=== PATIENT | female | born 1965 | race Caucasian/White ===

== ENCOUNTER 2019-10-23 13:36 | Outpatient (CLI) | payer OTHER, SELFPAY ==
--- NOTE | ~2019-10-23 | US_ITS ---
EXAMINATION: US pelvic complete w TV DATE: 10/23/2019 14:37 INDICATION: Left adnexal pain. Postmenopausal. Comparison:11/28/2015 TECHNIQUE: Multiple transabdominal and endovaginal sonographic images of the pelvis performed. FINDINGS: The uterus measures 7.8 x 3.8 x 6.5 cm. There is a heterogeneous mass at the fundus of the uterus measuring 4.6 x 3.3 x 3 cm, compatible with fibroid. The endometrial complex measures 6 mm. The ovaries are not visualized. There is no free fluid in the pelvis. There are no abnormal masses seen on either side. IMPRESSION: 1. 4.6 cm uterine fibroid at the uterine fundus. 2: Thickened endomtrial complex. The differential diagnosis includes endometrial hyperplasia, polyp a nd carcinoma. Biopsy is recommended. Reviewed, dictated and finalized at location A. IMPRESSION: 1. 4.6 cm uterine fibroid at the uterine fundus. 2: Thickened endomtrial complex. The differential diagnosis includes endometria l hyperplasia, polyp and carcinoma. Biopsy is recommended.
== END 2019-10-23 13:37 | disposition home or self-care (01) ==
PROVIDERS: PCP Family Medicine; Visit Provider Nurse Practitioner
DX: R10.2 Pelvic and perineal pain (principal); D25.9 Leiomyoma of uterus, unspecified; R93.89 Abnormal findings on diagnostic imaging of other specified body structures
CPT/HCPCS: 76830; 76856

== ENCOUNTER → 2020-01-06 10:25 | Outpatient (CLI) | payer OTHER, SELFPAY ==
--- NOTE | ~2020-01-06 | MM_ITS ---
EXAMINATION: MM screening [facility] BI w martha HISTORY: Screening mammogram TECHNIQUE: Craniocaudal and mediolateral oblique 3-D tomosynthesis images were obtained and synthetic 2-D images were generated. CAD analysis was submitted and interpreted. COMPARISON: Comparison to multiple prior studies sequentially, with oldest reviewed study dated 01/2015. BREAST PARENCHYMAL COMPOSITION: There are scattered areas of fibroglandular density. FINDINGS: There is no evidence of suspicious mass, calcification, or architectural distortion to sugg est malignancy in either breast. There has been no suspicious interval change. IMPRESSION: 1. No mammographic evidence of malignancy. 2. Recommend routine screening mammography in one year. BI-RADS Category 1: Negative Reviewed, dictated and finalized at location A.
== END ==
PROVIDERS: Visit Provider Nurse Practitioner
DX: Z12.31 Encounter for screening mammogram for malignant neoplasm of breast (principal)
CPT/HCPCS: 77063; 77067

== ENCOUNTER 2020-02-17 10:47 | Outpatient (CLI) | payer OTHER, SELFPAY ==
--- NOTE | ~2020-02-17 | US_ITS ---
EXAMINATION: US pelvic complete w TV DATE: 02/17/2020 11:51 INDICATION: Endometrial thickening TECHNIQUE: Multiple transabdominal and endovaginal sonographic images of the pelvis were obtained. COMPARISON: 10/23/2019 FINDINGS: The uterus measures 6.0 x 3.5 x 6.0 cm. A 1.2 x 0.7 cm hypoechoic area near the uterine fun dus is stable, possibly reflecting a submucosal fibroid. The endometrial complex measures 5 mm. The r ight ovary measures 1.7 x 1.0 x 1.4 cm. The left ovary measures 1.1 x 2.0 x 1.0 cm. There is normal v ascular flow in the ovaries. There is no free fluid in the pelvis. IMPRESSION: 1. Normal endometrial thickness. Reviewed, dictated and finalized at location A.
== END 2020-02-17 10:48 | disposition home or self-care (01) ==
PROVIDERS: PCP Family Medicine; Visit Provider Nurse Practitioner
DX: R93.5 Abnormal findings on diagnostic imaging of other abdominal regions, including retroperitoneum (principal)
CPT/HCPCS: 76830; 76856

== ENCOUNTER 2020-03-12 11:12 | Emergency (ER) | payer OTHER, SELFPAY ==
[2020-03-12 11:28] VITALS: BP 117/69; PULSE 80; RESP 20; TEMP 36.8; O2SAT 97
--- NOTE | 2020-03-12 12:07 | ED.URI ---
HPI - URI/Sore Throat General Chief Complaint: Upper Respiratory Infection Stated Complaint: sore throat Source: patient Mode of arrival: ambulatory Limitations: no limitations History of Present Illness HPI Narrative: 54-year-old female presents to [facility] care with complaints of sore throat and body aches since yesterday. Patient reports history of strep throat reports that her symptoms are similar. Patient denies cough, shortness of breath, wheezing, fever, nausea, vomiting or diarrhea. Patient denies sick contacts. Patient denies recent travel. MD elicited complaint: sore throat Onset (ago): day(s) (1) Consistency: constant Severity: mild Pain scale (0-10): 6 Able to tolerate fluids by mouth: Yes Related Data Home Medications Medication Instructions Recorded Confirmed ergocalciferol (vitamin D2) 1,250 mcg PO WEEKLY 03/12/20 03/12/20 [Vitamin D2] escitalopram oxalate 5 mg PO DAILY 03/12/20 03/12/20 levothyroxine 88 mcg PO DAILY 03/12/20 03/12/20 multivitamin 1 cap PO DAILY 03/12/20 03/12/20 Allergies Allergy/AdvReac Type Severity Reaction Status Date / Time Penicillins Allergy Unknown Unknown Verified 03/12/20 11:39 Review of Systems Review of Systems: All systems reviewed & are unremarkable except as noted in HPI and below Constitutional: Constitutional: Reports chills, Denies fever(s) and Denies weakness ENT: Denies dysphagia, Denies vertigo, Denies dizziness, Denies nasal congestion and Reports sore throat Cardiovascular: Cardiovascular: Denies chest pain, Denies radiating jaw, neck or arm pain and Denies slow heart rate Respiratory: Respiratory: Denies cough, Denies dyspnea and Denies wheezing Gastrointestinal: Gastrointestinal: Denies abdominal pain, Denies constipation, Denies diarrhea, Denies nausea and Denies vomiting Integumentary/Breasts: Skin/Breast: Denies rash Neurologic: Denies dizziness, Denies headache(s) and Denies weakness PMFSH Past Medical History Medical History (Updated 03/12/20 @ 12:13 by Brenda Huff APRN) Anxiety Depression Hypothyroid Surgical History Surgical History (Updated 03/12/20 @ 12:10 by Brenda Huff APRN) Gastric bypass status for obesity Gastric bypass status for obesity Family History Family History Father Patient's father is in good health Sibling Patient's sister is in good health Patient's brother is in good health Social History Social History Smoking status: Never smoker Alcohol intake: current Exam Const: General: healthy appearing, no acute distress and alert Orientation/consciousness: patient oriented x3 HENMT: Head: normal to inspection Ears: external ears normal and TM's normal bilaterally General nose exam: Normal external nose present Mouth: Yes moist mucous membranes Throat: uvula midline Other: 1+ edema and moderate erythema noted to bilateral tonsils. There is no exudate or peritonsillar abscess noted Neck: Neck: normal visual inspection Resp: Effort & Inspection: normal respiratory effort, not labored and not tachypneic Auscultation: clear to auscultation bilaterally Cardio: Rate: regular rate, not bradycardic and not tachycardic Rhythm: regular rhythm Skin: General skin exam: normal color Rashes: no rashes Wounds: no wounds Neuro: General: patient oriented x3 and moves all extremities Extrem: General: normal to inspection Psych: Mental Status: mental status grossly normal Affect: normal affect Attitude: cooperative Thought content: Yes Normal thought content present Course Vital Signs Vital signs: Vital Signs Temperature 36.8 C 03/12/20 11:28 Pulse Rate 80 03/12/20 11:28 Respiratory Rate 20 03/12/20 11:28 Blood Pressure 117/69 03/12/20 11:28 Pulse Oximetry 97 03/12/20 11:28 Temperature 36.8 C 03/12/20 11:28 Pulse Rate 80 03/12/20 11:28 Respiratory R
== END 2020-03-12 12:22 | disposition home or self-care (01) ==
PROVIDERS: Emergency Provider Nurse Practitioner Family; PCP Family Medicine
DX: J02.9 Acute pharyngitis, unspecified (principal); E03.9 Hypothyroidism, unspecified; F41.9 Anxiety disorder, unspecified; F32.9 Major depressive disorder, single episode, unspecified
CPT/HCPCS: 87081; 87880; 99213; G0463

== ENCOUNTER 2021-09-08 10:05 | Emergency (ER) | payer OTHER, SELFPAY ==
[2021-09-08 10:26] VITALS: BP 109/58; PULSE 77; RESP 18; TEMP 36.5; O2SAT 98
--- NOTE | 2021-09-08 10:32 | ED.URI ---
HPI - URI/Sore Throat General Chief Complaint: Upper Respiratory Infection Stated Complaint: nasal congestion,bilateral ear pain,sorethroat Time Seen by Provider: 09/08/21 10:36 Source: patient, RN notes reviewed and old records reviewed Mode of arrival: ambulatory Limitations: no limitations History of Present Illness HPI Narrative: 55-year-old female who presents to [facility] Care with complaints of 2-week duration of sore throat, sinus congestion and drainage and now bilateral ear pain. Patient denies any acute cough has noted occasional dry cough with no shortness of breath or any tachypnea. Patient reports that she is taking an OTC allergy medication and did take a night time sinus congestion medication last night. Reports no known fevers but states she is hot and cold. MD elicited complaint: sore throat, nasal congestion and other (ear pain) Onset (ago): week(s) (2) Exacerbating factors: swallowing Treatments prior to arrival: cold medicine and other (sinus medication) Related Data Home Medications Medication Instructions Recorded Confirmed escitalopram oxalate 5 mg PO DAILY 03/12/20 09/08/21 levothyroxine 88 mcg PO DAILY 03/12/20 09/08/21 Allergies Allergy/AdvReac Type Severity Reaction Status Date / Time Penicillins Allergy Unknown Hives Verified 09/08/21 10:36 Review of Systems Review of Systems: CONSTITUTIONAL: Denies fever,positive for chills, or sweats. EYES: Denies visual changes, redness, or discharge. ENT: Positive for rhinorrhea, congestion, sore throat,bilateral otalgia, some facial pressure CARDIOVASCULAR: no chest pain, palpitations, or edema. RESPIRATORY:No acute cough occasional dry cough denies dyspnea. GASTROINTESTINAL: Denies abdominal pain, nausea, vomiting, or diarrhea. GENITOURINARY: Denies dysuria or hematuria. SKIN: Denies rash or itching. MUSCULOSKELETAL: Denies back pain, joint pain, or myalgia. NEUROLOGIC: Denies headache, numbness, or weakness. PSYCHIATRIC:Positive history of anxiety or depression. All systems reviewed & are unremarkable except as noted in HPI and below PMFSH Past Medical History Medical History Anxiety Depression Hypothyroid Surgical History Surgical History Gastric bypass status for obesity Gastric bypass status for obesity Family History Family History Father Patient's father is in good health Sibling Patient's sister is in good health Patient's brother is in good health Social History Social History Smoking status: Never smoker Alcohol intake: current Comments At time of signature, agree with nursing past medical, surgical, social and family history. There is no relevant family history pertinent to the presenting complaint Exam Narrative: GENERAL: Well-appearing, well-nourished, and in no acute distress. HEAD: Normocephalic, atraumatic. EYES: PERRLA and EOMI. ENT: Nares red with clear rhinorrhea no epistaxis. Mucous membranes moist.TM's normal but will dull light reflex, throat red with no lesions or exudates, some redness of tonsils, post nasal drainage present. NECK: Supple.no lymphadenopathy CHEST: Clear to auscultation. No respiratory distress.no tachypnea or shortness of breath SAO2 98% on room air. HEART: Regular rate and rhythm. No murmur heard. Normal peripheral pulses. ABDOMEN: Soft, nontender, nondistended, normal active bowel sounds. EXTREMITIES: Normal range of motion. No edema. SKIN: Warm, dry, no rash. NEURO: No focal deficits. Alert and oriented x3. Course Course Level of Care: Express Care Visit Vital Signs Vital signs: Vital Signs Temperature 36.5 C 09/08/21 10:26 Pulse Rate 77 09/08/21 10:26 Respiratory Rate 18 09/08/21 10:26 Blood Pressure 109/58 L 09/08/21 10:26 Pulse Oximetry 98 09/08/21
== END 2021-09-08 10:55 | disposition home or self-care (01) ==
PROVIDERS: Emergency Provider Registered Nurse
DX: J01.40 Acute pansinusitis, unspecified (principal); E03.9 Hypothyroidism, unspecified; F41.9 Anxiety disorder, unspecified; F32.A Depression, unspecified; Z98.84 Bariatric surgery status
CPT/HCPCS: 87081; 87880; 99213; G0463

== ENCOUNTER → 2022-03-12 08:57 | Outpatient (CLI) | payer OTHER, SELFPAY ==
--- NOTE | ~2022-03-12 | MM_ITS ---
EXAMINATION: MM screening [facility] BI w martha HISTORY: Screening mammogram TECHNIQUE: Craniocaudal and mediolateral oblique 3-D tomosynthesis images were obtained and synthetic 2-D images were generated. CAD analysis was submitted and interpreted. COMPARISON: 01/06/2020, 04/07/2018, 11/28/2015 bilateral screening mammogram examinations BREAST PARENCHYMAL COMPOSITION: The breasts are almost entirely fatty. FINDINGS: There is no evidence of suspicious mass, calcification, or architectural distortion to sugg est malignancy in either breast. There has been no suspicious interval change. IMPRESSION: 1. No mammographic evidence of malignancy. 2. Recommend routine screening mammography in one year. BI-RADS Category 1: Negative Reviewed, dictated and finalized at location A.
--- NOTE | ~2022-03-12 | DEXA_ITS ---
Bone Density Report Name: STEFANIE SKINNER Age: 56 Sex: Female Ethnicity: White Date of : 1965 Indication: postmenopausal; screening for osteoporosis; parental hip fracture; Referring Provider: Caryn, Jigna Study: Bone densitometry was performed. Exam Date: March 12, 2022 Accession number: [id number] Bone Density: Region BMD T-score Z-score Classification AP Spine (L1-L4) 0.852 -1.8 -0.7 Osteopenia Femoral Neck (Left) 0.690 -1.4 -0.4 Osteopenia Total Hip (Left) 0.858 -0.7 0.0 Normal Femoral Neck (Right) 0.679 -1.5 -0.5 Osteopenia Total Hip (Right) 0.894 -0.4 0.2 Normal Total Hip Mean 0.876 -0.6 0.1 Normal World Health Organization criteria for BMD impression classify patients as: Normal (T-score at or above -1.0), Osteopenia (T-score between -1.0 and -2.5), or Osteoporosis (T-score at or below -2.5). 10-year Fracture Risk(1): Major Osteoporotic Fracture 12% Hip Fracture 0.5% Reported Risk Factors: [place] (), Neck BMD=0.679, BMI=31.5, parental fracture (1) FRAX(R) Version 3.08. Fracture probability calculated for an untreated patient. Fracture probability may be lower if the patient has received treatment. Clinical Information Provided by Patient: Parent has had a hip fracture Patient maximum height was 66 Menopause Age: 50 No regular weight bearing exercise Does not regularly consume dairy products Drinks caffeinated beverages Onset of menses at age 14 Number of children 1 Impression: The patient has low bone mass, based on the Total Spine T-score. The patient has an estimated ten-year risk of hip fracture of 0.5% and an estimated ten-year risk of major fracture of 12%, based on the WHO FRAX algorithm. The patient has risk factors, including: parental hip fracture. Discussion: BONE DENSITY IS LOW AT ONE OR MORE SKELETAL SITES. This patient's lowest T-score is low at one or more skeletal sites. It meets the World Health Organization's (WHO) criteria for ?low bone mass? (T-score between -1.0 and -2.5). The patient's 10-year risk of fracture as calculated by FRAX is less than the threshold where pharmacological therapy is recommended by the National Osteoporosis Foundation (NOF). However, all treatment decisions require clinical judgment and consideration of individual patient factors, including patient preferences, comorbidities, previous drug use, risk factors not captured in the FRAX model (e.g., frailty, falls, vitamin D deficiency, increased bone turnover, interval significant decline in bone density) and possible under or overestimation of fracture risk by FRAX. The patient should follow a healthful lifestyle (good nutrition with adequate calcium and vitamin D, and appropriate weight-bearing exercise). Follow-Up: Consider repeating this study in 2 to 3 ye
== END ==
PROVIDERS: PCP Family Medicine; Visit Provider Nurse Practitioner
DX: Z78.0 Asymptomatic menopausal state (principal); M85.88 Other specified disorders of bone density and structure, other site; M85.852 Other specified disorders of bone density and structure, left thigh; M85.851 Other specified disorders of bone density and structure, right thigh
CPT/HCPCS: 77063; 77067; 77080

== ENCOUNTER 2022-04-16 11:57 | Emergency (ER) | payer OTHER, SELFPAY ==
[2022-04-16 12:10] VITALS: BP 129/68; PULSE 88; RESP 18; TEMP 36.6; O2SAT 100
--- NOTE | 2022-04-16 12:32 | ED.GENADULT ---
HPI - General Adult General Chief complaint: Ear Stated complaint: bilateral ear pain History of Present Illness HPI narrative: Patient is a 56-year-old female who presents to the [facility] Care via POV for evaluation of bilateral ear pain for 1 week. R is much worse than left. She reports pain in right ear is 8/10 and left ear is 4/10.Unable to describe quality of pain. No relief with hydrocodone. Ibuprofen provides moderate relief. Hx of ear infections and today's pain is identical to previous ear infections. Of note, she had a gum graft procedure on Tuesday, April 12, 2022. Related Data Home Medications Medication Instructions Recorded Confirmed ergocalciferol (vitamin D2) 1,250 1,250 mcg WEEKLY 04/16/22 04/16/22 mcg (50,000 unit) capsule escitalopram oxalate 20 mg tablet 20 mg DAILY 04/16/22 04/16/22 levothyroxine 75 mcg tablet 75 mcg DAILY 04/16/22 04/16/22 Allergies Allergy/AdvReac Type Severity Reaction Status Date / Time Penicillins Allergy Unknown Hives Verified 04/16/22 12:15 NSAIDS (Non-Steroidal Allergy Other Verified 04/16/22 12:15 Anti-Inflamma Review of Systems Review of Systems: Pertinent negatives fever, chills, sweats, change in appetite, poor p.o. intake, malaise, headache, rhinorrhea, sinus problems, tinnitus, vertigo, lightheadedness, hearing loss, muffled hearing, ear drainage, nausea, vomiting, sore throat, cough, shortness of breath, lymphadenopathy, chest pain, heart palpitations, and heart murmur. [facility] Past Medical History Medical History Anxiety Depression Hypothyroid Surgical History Surgical History Gastric bypass status for obesity Gastric bypass status for obesity Family History Family History Father Patient's father is in good health Sibling Patient's sister is in good health Patient's brother is in good health Social History Social History Smoking status: Never smoker Alcohol intake: current Exam Narrative: GENERAL: Well-appearing, well-nourished, and in no acute distress. Appears in moderate pain. Guarding right ear. HEAD: Normocephalic, atraumatic. No sinus tenderness or facial swelling appreciated. EYES: PERRLA and EOMI. No evidence of erythema, swelling, or drainage. ENT: Bilateral external ears. Right ear canal with moderate erythema. Pain elicited to right ear while palpating tragus and pulling up on pinna. Left ear canal normal. Bilateral TMs are normal.No TM perforation. Nares clear, no rhinorrhea or epistaxis. Bilateral turbinates without erythema/ swelling. Mucous membranes moist and pink. Uvula is midline without erythema and swelling. Posterior pharynx is normal. Breath odor and voice normal. NECK: Supple. No Lymphadenopathy or nuchal rigidity appreciated. CHEST: Bilateral lung simon are clear to auscultation. No respiratory distress. No evidence of cough or pleuritic cp upon examination. HEART: Regular rate and rhythm. No murmur, gallop, or rub heard. EXTREMITIES: Normal range of motion. No edema. SKIN: Warm, dry, no rash. NEURO: No focal deficits. Alert and oriented x3. Course Course Level of Care: Express Care Visit Vital Signs Vital signs: Vital Signs Temperature 97.9 F 04/16/22 12:10 Pulse Rate 88 04/16/22 12:10 Respiratory Rate 18 04/16/22 12:10 Blood Pressure 129/68 04/16/22 12:10 Pulse Oximetry 100 04/16/22 12:10 Oxygen Delivery Room Air 04/16/22 12:10 Temperature 97.9 F 04/16/22 12:10 Pulse Rate 88 04/16/22 12:10 Respiratory Rate 18 04/16/22 12:10 Blood Pressure 129/68 04/16/22 12:10 Pulse Oximetry 100 04/16/22 12:10 Oxygen Delivery Room Air 04/16/22 12:10 Reviewed. Medical Decision Making Differential Diagnosis Differential
[2022-04-16] MEDS: KETOROLAC (*BKC) 60 MG/2 ML VIAL IM (12:44)
== END 2022-04-16 13:08 | disposition home or self-care (01) ==
PROVIDERS: Emergency Provider Nurse Practitioner Family; PCP Family Medicine
DX: H60.501 Unspecified acute noninfective otitis externa, right ear (principal); F41.9 Anxiety disorder, unspecified; F32.A Depression, unspecified; E03.9 Hypothyroidism, unspecified
CPT/HCPCS: 96372; 99213; G0463; J1885

== ENCOUNTER → 2022-09-21 12:40 | Outpatient (CLI) | payer OTHER, SELFPAY ==
--- NOTE | ~2022-09-21 | XR_ITS ---
EXAM: XR toe 1st RT min 2V DATE: 09/21/2022 13:06 HISTORY: unspecified injury of right foot, initial encounter . COMPARISON: None available. FINDINGS: Normal mineralization. Mildly displaced oblique intra-articular fracture of the medial and proximal aspect of the right distal phalanx. No lytic or blastic lesion. Moderate hallux valgus and degenerative change at the first MTP joint. No erosion or periosteal change. Soft tissues within norm al limits. IMPRESSION: Mildly displaced oblique intra-articular fracture of the medial and proximal aspect of th e right distal phalanx. Reviewed, dictated and finalized at location K. IMPRESSION: Mildly displaced oblique intra-articular fracture of the medial and proximal aspect of the right distal phalanx.
== END ==
PROVIDERS: PCP Family Medicine; Visit Provider Family Medicine
DX: S99.921A Unspecified injury of right foot, initial encounter (principal); X58.XXXA Exposure to other specified factors, initial encounter
CPT/HCPCS: 73660

== ENCOUNTER → 2023-04-05 08:16 | Outpatient (CLI) | payer OTHER, SELFPAY ==
--- NOTE | ~2023-04-05 | US_ITS ---
Pelvic ultrasound. Clinical History: Pelvic swelling COMPARISON: 02/17/2020 Technique: Realtime transabdominal and transvaginal scanning of the pelvis was performed. Color flow Doppler and Doppler spectral analysis were performed. Findings: The uterus is anteverted. The endometrial stripe has a thickness of 5 mm. Ill-defined intr amural/partially submucosal fibroid measures 1.4 cm in diameter. Left-sided fibroid towards the fundu s measures 4.0 cm in diameter. Neither ovary seen. No other adnexal mass seen. There is no evidence of free fluid in the cul de sac. Impression: Uterine fibroids, as detailed above. Reviewed, dictated and finalized at location . Impression: Uterine fibroids, as detailed above.
== END ==
PROVIDERS: PCP Obstetrics & Gynecology Gynecology; Visit Provider Advanced Practice Midwife
DX: R19.09 Other intra-abdominal and pelvic swelling, mass and lump (principal); D25.9 Leiomyoma of uterus, unspecified
CPT/HCPCS: 76830

== ENCOUNTER → 2023-04-05 08:45 | Outpatient (CLI) | payer OTHER, SELFPAY ==
--- NOTE | ~2023-04-05 | MM_ITS ---
EXAMINATION: MM screening [facility] BI w martha HISTORY: Screening TECHNIQUE: Craniocaudal and mediolateral oblique 3-D tomosynthesis images were obtained and synthetic 2-D images were generated. CAD analysis was submitted and interpreted. COMPARISON: Comparison to multiple prior studies sequentially, with oldest reviewed study dated 11/04. BREAST PARENCHYMAL COMPOSITION: Breast composed of scattered areas of fibroglandular density FINDINGS: There is no evidence of suspicious mass, calcification, or architectural distortion to sugg est malignancy in either breast. There has been no suspicious interval change. IMPRESSION: 1. No mammographic evidence of malignancy. 2. Recommend routine screening mammography in one year. BI-RADS Category 1: Negative Reviewed, dictated and finalized at location A.
== END ==
PROVIDERS: PCP Nurse Practitioner; Visit Provider Nurse Practitioner
DX: Z12.31 Encounter for screening mammogram for malignant neoplasm of breast (principal)
CPT/HCPCS: 77063; 77067

== ENCOUNTER 2023-06-10 15:05 | Emergency (ER) | payer OTHER, SELFPAY ==
[2023-06-10 15:35] VITALS: BP 115/69; PULSE 74; RESP 18; TEMP 36.7; O2SAT 99
--- NOTE | 2023-06-10 15:42 | ED.URI ---
HPI - URI/Sore Throat General Chief Complaint: Upper Respiratory Infection Stated Complaint: congestion,sorethroat,cough Time Seen by Provider: 06/10/23 15:40 Source: patient Mode of arrival: ambulatory Limitations: no limitations History of Present Illness HPI Narrative: Jessica is a 57-year-old female patient presenting to the clinic today with complaints of congestion, sore throat, and cough x5 days. She denies any fever or chills. Has been tested positive for COVID yesterday. MD elicited complaint: sore throat and nasal congestion Related Data Home Medications Medication Instructions Recorded Confirmed ergocalciferol (vitamin D2) 1,250 1,250 mcg WEEKLY 04/16/22 04/16/22 mcg (50,000 unit) capsule escitalopram oxalate 20 mg tablet 20 mg DAILY 04/16/22 04/16/22 levothyroxine 75 mcg tablet 75 mcg DAILY 04/16/22 04/16/22 Allergies Allergy/AdvReac Type Severity Reaction Status Date / Time Penicillins Allergy Unknown Hives Verified 04/16/22 12:15 NSAIDS (Non-Steroidal Allergy Other Verified 04/16/22 12:15 Anti-Inflamma Review of Systems Review of Systems: Pertinent positives per HPI. Patient denies any fever, chills, rash, headache, visual changes, dizziness, shortness of breath, chest pain, palpitations, nausea, vomiting, diarrhea, constipation, abdominal pain, or any urinary issues. COUNT INCLUDES THE [facility] Past Medical History Medical History Anxiety Depression Hypothyroid Surgical History Surgical History Gastric bypass status for obesity Gastric bypass status for obesity Family History Family History Father Patient's father is in good health Sibling Patient's sister is in good health Patient's brother is in good health Social History Social History Smoking status: Never smoker Alcohol intake: current Comments At the time of my signature, I reviewed and agree with the nursing past medical, surgical, social, and family history. There is no relevant family history pertinent to the patient complaint. Exam Narrative: General: Well-developed, well nourished, in no apparent distress Head: Normocephalic, atraumatic Eyes: Pupils equally round and reactive to light bilaterally, EOM intact, sclera and conjunctive clear, no discharge, lids normal Ears: TMs intact and clear, ear canals clear, no drainage, grossly hearing normal. Nose: Nares patent, clear nasal discharge, no inflammation, no sinus tenderness. Mouth: Oral pharynx without lesions or masses, good dentition, MMM. Neck: Supple, trachea midline, no enlargement of anterior or posterior cervical nodes, no thyroid masses or goiter palpable. Cardio: Regular rate and rhythm, s1 and s2 normal, no murmur appreciated. Resp: Clear to auscultation bilaterally, no rhonchi, rales, wheezing or rubs Course Course Emergency Course: Portions of this record may have been created with voice recognition software. Level of Care: Express Care Visit Vital Signs Vital signs: Vital Signs Temperature 36.7 C 06/10/23 15:35 Pulse Rate 74 06/10/23 15:35 Respiratory Rate 18 06/10/23 15:35 Blood Pressure 115/69 06/10/23 15:35 Pulse Oximetry 99 06/10/23 15:35 Oxygen Delivery Room Air 06/10/23 15:35 Temperature 36.7 C 06/10/23 15:35 Pulse Rate 74 06/10/23 15:35 Respiratory Rate 18 06/10/23 15:35 Blood Pressure 115/69 06/10/23 15:35 Pulse Oximetry 99 06/10/23 15:35 Oxygen Delivery Room Air 06/10/23 15:35 Vital signs reviewed MDM - URI/Sore Throat MDM Narrative Medical decision making narrative: At the time of visit patient is resting comfortably on the exam table. Patient appears to be nontoxic. COVID, influenza, and strep test were all negative. Supportive measures were disc
== END 2023-06-10 16:20 | disposition home or self-care (01) ==
PROVIDERS: Emergency Provider Nurse Practitioner Family; PCP Family Medicine
DX: B34.9 Viral infection, unspecified (principal); J06.9 Acute upper respiratory infection, unspecified; J02.9 Acute pharyngitis, unspecified; E03.9 Hypothyroidism, unspecified; Z20.822 Contact with and (suspected) exposure to COVID-19
CPT/HCPCS: 87081; 87426; 87804; 87880; 99213; C9803; G0463

== ENCOUNTER 2023-11-10 12:08 | Emergency (ER) | payer OTHER, SELFPAY ==
[2023-11-10 12:17] VITALS: BP 135/97; PULSE 67; RESP 16; TEMP 36.7; O2SAT 96
--- NOTE | 2023-11-10 12:43 | ED.URI ---
HPI - URI/Sore Throat General Chief Complaint: Upper Respiratory Infection Stated Complaint: Cold symptoms Time Seen by Provider: 11/10/23 12:30 Source: patient and RN notes reviewed Mode of arrival: ambulatory Limitations: no limitations History of Present Illness HPI Narrative: Patient presents with a 1+ week history of cough, sore throat, bilateral ear pain and pressure, nasal congestion, postnasal drip. Denies fever or shortness of breath. She currently rates her pain 5/10 and has been taking DayQuil, NyQuil, Tylenol with mild relief. No history of asthma or COPD. Related Data Home Medications Medication Instructions Recorded Confirmed ergocalciferol (vitamin D2) 1,250 1,250 mcg WEEKLY 04/16/22 04/16/22 mcg (50,000 unit) capsule escitalopram oxalate 20 mg tablet 20 mg DAILY 04/16/22 04/16/22 levothyroxine 75 mcg tablet 75 mcg DAILY 04/16/22 04/16/22 Allergies Allergy/AdvReac Type Severity Reaction Status Date / Time Penicillins Allergy Unknown Hives Verified 04/16/22 12:15 NSAIDS (Non-Steroidal Allergy Other Verified 04/16/22 12:15 Anti-Inflamma Review of Systems Review of Systems: CONSTITUTIONAL: Denies body aches, fever, chills, or sweats. EYES: Denies visual changes, redness, or discharge. ENT: Denies rhinorrhea. + congestion, postnasal drip, sore throat, bilateral ear pain and pressure CARDIOVASCULAR: Denies chest pain, palpitations, or edema. RESPIRATORY: Denies dyspnea.+ cough GASTROINTESTINAL: Denies abdominal pain, nausea, vomiting, or diarrhea. GENITOURINARY: Denies dysuria or hematuria. SKIN: Denies rash, itching, or wounds. MUSCULOSKELETAL: Denies back pain, joint pain, or myalgia. NEUROLOGIC: Denies headache, numbness, tingling, or weakness. PSYCH: Denies depression or anxiety. [facility] Past Medical History Medical History Anxiety Depression Hypothyroid Surgical History Surgical History Gastric bypass status for obesity Gastric bypass status for obesity Family History Family History Father Patient's father is in good health Sibling Patient's sister is in good health Patient's brother is in good health Social History Social History Smoking status: Never smoker Alcohol intake: current Comments At time of signature, I have reviewed and agree with nursing past medical, surgical, social and family history unless otherwise noted. Please see nursing chart for further information. There is no relevant family history pertinent to the presenting complaint Exam Narrative: GENERAL: Ill-appearing, well-nourished, and in no acute distress. HEAD: Normocephalic, atraumatic. EYES: EOMI. No redness or drainage. Conjunctivae normal. ENT: Mucous membranes pink and moist. Nares congested. Bilateral nasal turbinates are erythematous and edematous. TMs normal bilaterally. Throat normal. Uvula midline. NECK: Normal AROM. Supple. No lymphadenopathy. CHEST: No respiratory distress. Clear to auscultation. HEART: Regular rate and rhythm. No murmur appreciated. EXTREMITIES: Normal range of motion. No edema. SKIN: Warm, dry, no rash. Capillary refill normal. Normal skin turgor. NEURO: No focal deficits. Alert and oriented x3. Gait steady. PSYCH: Normal affect. No signs of depression or anxiety. Course Course Level of Care: Express Care Visit Vital Signs Vital signs: Vital Signs Temperature 98.1 F 11/10/23 12:17 Pulse Rate 67 11/10/23 12:17 Respiratory Rate 16 11/10/23 12:17 Blood Pressure 135/97 H 11/10/23 12:17 Pulse Oximetry 96 11/10/23 12:17 Oxygen Delivery Room Air 11/10/23 12:17 Temperature 98.1 F 11/10/23 12:17 Pulse Rate 67 11/10/23 12:17 Respiratory Rate 16 11/10/23 12:17 Blood Pre
== END 2023-11-10 12:50 | disposition home or self-care (01) ==
PROVIDERS: Emergency Provider Nurse Practitioner; PCP Family Medicine
DX: J01.90 Acute sinusitis, unspecified (principal); F41.9 Anxiety disorder, unspecified; F32.A Depression, unspecified; E03.9 Hypothyroidism, unspecified; Z98.84 Bariatric surgery status; E66.9 Obesity, unspecified; Z68.32 Body mass index [BMI] 32.0-32.9, adult
CPT/HCPCS: 87081; 87880; 99213; G0463

== ENCOUNTER 2024-08-29 07:35 | Outpatient (CLI) | payer OTHER, SELFPAY ==
--- NOTE | ~2024-08-29 | MM_ITS ---
EXAMINATION: MM screening henry BI w martha HISTORY: Screening mammogram, family history of breast cancer in her mother. TECHNIQUE: Craniocaudal and mediolateral oblique 3-D tomosynthesis images were obtained and synthetic 2-D images were generated. CAD analysis was submitted and interpreted. COMPARISON: 04/05/2023, 03/12/2022, 01/06/2020 BREAST PARENCHYMAL COMPOSITION:Not Dense. The breasts are almost entirely fatty FINDINGS: No suspicious mass, calcification, or architectural distortion are identified in either nicole ast to suggest malignancy. There has been no suspicious interval change. IMPRESSION: No mammographic evidence of malignancy. Recommend routine screening mammography in one year. BI-RADS Category 1: Negative Reviewed, dictated and finalized at location .
--- OUTSIDE RECORDS SUMMARY | 2024-08-29 07:39 | XMS_ITS | Clinical Summary ---
Author Organization [facility] Care Team Providers Care [facility] Products Assembler Name Role Phone Unavailable Primary Care Provider Unavailabl e Social History Tobacco Use Types Packs/Day Years Used Date Smoking Tobacco: Never Assessed Comments Unknown Sex and Gender Information Value Date Recorded Sex Assigned at Not on file Legal Sex Female 10:59 AM CDT Gender Identity Not on file Sexual Orientation Not on file Plan of Treatment Health Maintenance Due Date Last Done Comments Hepatitis C Virus (HCV) Screening 1965 TdaP Immunization 1965 Hepatitis B Immunization (1 of 3 - 19+ 3-dose series) 11/30/1986 Pap Smear 11/30/1988 Cervical Cancer Screening (CCS) 11/30/1997 HPV/Cotest 11/30/1997 Colonoscopy 11/30/2012 Colorectal Cancer Screening 11/30/2012 Cologuard 11/30/2017 Immunochemical Fecal Occult Blood 11/30/2017 Mammogram 11/30/2017 Pneumococcal Immunization (5 0+ years) (1 of 1 - PCV) 11/30/2017 Zoster Immunization (1 of 2) 11/30/2017 Influenza Immunization (#1) 2024 SARS-COV-2 Immunization ( season) 2024 Respiratory Syncytial Virus (RSV) Immunization (Adult) (1 - 1-dose 75+ series) 11/30/2042 Meningococcal Immunization (ACWY) Aged Out No longer eligible based on patient's age to complete this topic Pneumococcal Immunization Combined Aged Out No longer eligible based on patient's age to complete this topic Rotavirus Immunization Aged Out No lo nger eligible based on patient's age to complete this topic
--- OUTSIDE RECORDS SUMMARY | 2024-08-29 07:39 | XMS_ITS | Encounter Summary ---
Author Organization [facility] Address 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 Gender Identity Not on file Sexual Orientation Not on file documented as of this encounter Plan of Treatment Not on file documented as of this encounter Procedures Procedure Name Priority Date/Time Associated Diagnosis Comments MRI BREAST W CONTRAST BILAT Routine 03/26/2008 11:48 AM CDT documented in this encounter Results * MRI BREAST W CONTRAST BILAT (03/26/2008 11:48 AM CDT) Anatomical Region Laterality Modality Breast Bilateral Other 03/26/2008 11:4 8 AM CDT Narrative 03/27/2008 4:17 PM CDT [id number] [place], [place] [address] Admit Date: 03/26/2008 STEFANIE PERERA Sex: F Admit Prov: THIAGO ARSHAD Date: 1965 Primary Care Prov: CMRN: [id number] Room: MRI-A SSN: [id number] IMAGING SERVICES Ordering Prov: THIAGO ARSHAD Accession Number: [id number] Interpretation BILATERAL DYNAMIC BREAST MRI WITH IV CONTRAST 03/26/2008 History: Questionable abnormal mammogram. Family history (mother) of breast cancer. A bilateral dynamic breast MRI was performed for tumor imaging. 20 ml of Optimark was injected intravenously without complications. Comparison is made with a recent mammogram from [facility] dated 03/01/2008 and spot views from [facility] dated 03/07/08. Images are reviewed with the computer-assisted diagnostic protocol (CAD stream). There is a small amount of parenchymal density bilaterally. There is a moderate amount of background enhancement bilaterally. This is bilaterally symmetric. A suspicious mass to correspond to the area of asymmetry seen mammographically is not identified. The overlying skin and nipple and areolar complexes are normal bilaterally. The chest wall is unremarkable. No adenopathy is identified. Impression: Negative bilateral dynamic breast MRI. Given the appearance of the left breast on the initial screening mammogram (with essentially negative spot views and sonography), a 6 month interval followup may be helpful for reassurance. Overall assessment: BIRADS category 3 - probably benign findings Dictated by: CORINNA VAZQUEZ Electronically signed by: CORINNA VAZQUEZ 03/27/2008 16:15 Transcribed: 03/27/2008 07:16 AMK Procedure Note Corinna Vazquez - 03/27/[address] [address] Admit Date: 03/26/2008 STEFANIE PERERA Sex: F Admit Prov: THIAGO ARSHAD Date: 1965 Primary Care Prov: CMRN: [id number] Room: [facility] SSN: [id number] IMAGING SERVICES Ordering Prov: THIAGO ARSHAD Interpretation BILATERAL DYNAMIC BREAST MRI WITH IV CONTRAST 03/26/2008 History: Questionable abnormal mammogram. Family history (mother) ofbreast cancer. A bilateral dynamic breast MRI was performed for tumor imaging. 20 mlof Optimark was injected intravenously without complications. Comparisonis made with a recent mammogram from [facility] dated 03/01/2008 and spot views from [facility] dated03/07/08. Images are reviewed with the computer-assisted diagnostic protocol(CAD stream). There is a small amount of parenchymal density bilaterally. There nhung moderate amount of background enhancement bilaterally. This isbilaterally symmetric. A suspicious mass to correspond to the area of asymmetryseen mammographically is not identified. The overlying skin and nippleand areolar complexes are normal bilaterally. The chest wall isunremarkable. No adenopathy is identified. Impression: Negative bilateral dynamic breast MRI. Given the appearance of the left breast on the initial screeningmammogram (with essentially negative spot views and sonography), a 6 monthinterval followup may be helpful for reassurance. Overall assessment: BIRADS category 3 - probably benign findings Dictated by: CORINNA VAZQUEZ Electronically signed by: CORINNA VAZQUEZ 03/27/2008 16:15 Transcribed: 03/27/2008 07:16 AMK us Thiago Arshad MD MR ORDERABLES Final Result documented in this encounter Visit Diagnoses Not on filedocumented in this encounter Care Teams Kicking Machine Operator Relationship Specialty Start Date End Date Nathanael Dale MD PCP - General 05/01/09 documented as of this encounter
--- OUTSIDE RECORDS SUMMARY | 2024-08-29 07:39 | XMS_ITS | CONTINUITY OF CARE DOCUMENT ---
Author Name kashif rowland Address Unknown Organization [facility] Address [address] [place] [address] Phone [phone] Care Team Providers Care Human Resources Compensation Analyst Name Role Phone Dariela SCHWAB, Yesenia Patton Unavailable Josafat SCHWAB, Jeancarlos Unavailable PROBLEMS Condition Status Date Provider Notes Cardiology examination active Jeancarlos Maurice MD Atrial fib active Jeancarlos Maurice MD Palpitations active Jeancarlos Maurice MD ? Sleep apnea active Sid Love ENCOUNTERS Date Type Provider Location Encounter Diag nosis - In-person encounter Office Visit Yesenia Lyle MD [facility] Office ? Sleep apnea - In-person encounter Office Visit Yesenia Lyle MD [facility] Office - In-person encounter Office Visit Jeancarlos Maurice MD [place] [facility] Cardiology examinationAtrial fibPalpitations VITAL SIGNS Date Observation Value Provider Body Mass Index (Ratio) 35.67 kg/m2 Antonio Love blood pressure, resting Yes Syeda Stiles BRUSHING MACHINE OPERATOR blood pressure, diastolic 87 mm[Hg] Li nkLogic blood pressure, systolic 147 mm[Hg] Yuli kLogic blood pressure, diastolic 87 mm[Hg] Ky filipe Randall blood pressure, systolic 147 mm[Hg] Emily Jamesam respiratory rate E&M 12 /min Jennifer castelan oxygen saturation, oximetry 99 % Jennifer Jamesam pulse rate 66 /min Jennifer Jamesam weight E&M 221 [lb_av] Jennifer Randall blood pressure, cuff size regular Wilner dent Tye height E&M 66 [in_i] Wilneraspen Tye Body Mass Index (Ratio) 35.99 kg/m2 Antonio Love blood pressure, resting No Maycol pavithra Christensenkey DNP,[facility] blood pressure, diastolic 80 mm[Hg] Ch add Harkey DNP,[facility] blood pressure, systolic 140 mm[Hg] Aida dd Ferminkey DNP,[facility] oxygen saturation, oximetry 99 % Jennifer Tye pulse rate 65 /min Wilneraspen Tye respiratory rate E&M 12 /min Jennifer Herman [facility] weight E&M 223 [lb_av] Jennifer Tye blood pressure, cuff size regular Wilner dent Tye height E&M 66 [in_i] Wilneraspen Tye Body Mass Index (Ratio) 31.95 kg/m2 Maik Maurice MD blood pressure, cuff size large Ke rri Gruenenfeld blood pressure, diastolic 72 mm[Hg] Ke rri Gruenenfelder blood pressure, systolic 112 mm[Hg] Antonio Brownele oxygen saturation, oximetry 98 % Laila Kem respiratory rate E&M 14 /min Laila smith pulse rate 57 /min Laila walls weight E&M 198 [lb_av] Laila Pravinneopale lder height E&M 66 [in_i] Laila Howard lder ALLERGIES Allergy Name Onset Date Reaction Criticality Status PCN High Criticality active RESULTS Date Observation Value Provider Reference Range Interpretation Location 5 magnesium, serum 2.5 mg/dL [facility] 1.6-2.3 High 5 free thyroxine index 2.7 [facility] 1.2-4.9 5 triiodothyronine resin uptake 30 % [facility] 24-39 5 thyroxine, serum, total 8.9 ug/dL [facility] 4.5-12.0 5 thyroid stimulating hormone, serum 3.690 u[IU]/mL [facility] 0.450-4.500 HISTORY OF MEDICATION USE Medication Status Instructions Dates Provider Indications Com ments magnesium oxide 400 mg magnesium tablet active Take 1 tablet by mouth twice a day SARAH Castellon DNP metoprolol succinate 25 mg tablet extended release 24 hr active TAKE 1 TABLET BY MOUTH EVERY DAY IN THE MORNING SARAH Castellon DNP aspirin 81 mg tablet,chewable active Take 1 tablet by mouth once a day SARAH Castellon DNP Wellbutrin XL 300 mg tablet extended release 24 hr active Take 1 tablet by mouth once a day Jennifer Pereira escitalopram oxalate 20 mg tablet active Take 1 tablet by mouth once a day Jennifer Pereira levothyroxine 75 mcg tablet active Take 1 tablet by mouth once a day Jennifer Pereira SOCIAL HISTORY Date Observation Value Provider number of years as a smoker 10 a Jessica Sitles NP smoking, year quit 25 Jessica Stiles NP smoking history, tot al pack/day 0.5 Jessica Stiles NP cigarette use yes Jessica broussard NP drug use no Jessica mccracken NP alcohol use, average drinks per day social Jessica Stiles NP alcohol use yes Jessica mccracken BRUSHING MACHINE OPERATOR smoking status Former smoker Jessica Downing belleer BRUSHING MACHINE OPERATOR drug use no Skip Miller DN P,SURGERY TECHNICIAN alcohol use, average drinks per day social Skip Christensenrina DNP,SURGERY TECHNICIAN alcohol use yes Skip Miller DN P,SURGERY TECHNICIAN smoking status Former smoker Skip Miller DNP,SURGERY TECHNICIAN drug use no Jeancarlos Maurice MD alcohol use, average drinks per day social Jeancarlos Maurice MD alcohol use yes Jeancarlos Muarice MD social history E&M S moking History: Rell sandy is a former smoker. Jeancarlos Maurice MD social history reviewed E&M revi ewed - no changes required Jeancarlos Maurice MD smoking status Former smoker Jeancarlos Maurice MD INSURANCE PROVIDERS Payer name Policy type / Coverage type [place] [employer] ID [employer] [id number] ADVANCE DIRECTIVES Name Date DISCUSSED - NO DECISION MADE TREATMENT PLAN Date Name Performer [id number],C,D o not know if this is afib or sct. will try to capture Jeancarlos Maurice MD [id number],C,S he has lost 90 pounds and will give her a 30 monitor and an echo. G et her lab work from the pcp Jeancarlos Maurice MD Cardiology:pt snores , has hypersomnia and is obese. will check home sleep study. S TOPBANG 5 Jessica Downingabiodun BRUSHING MACHINE OPERATOR Cardiology: N o afib noted on previous monitor. Strong family hx of afib. WIll repeat tele for 2weeks and get sleep study to evaluate causes. WIll start ASA now. Today ekg demostrates a sinus rhythmn. 07/09/24 14 day tele: min 46, av 63, max 110. PSVT. VE: <0.1% SVE <0.1%. no AFIB. pt states that her she did have an episode of 'fast heart rate after monitor was placed'. review of strips, 06/15 pt [address] episode of [address] 110 (placed 06/13) which could have corresponded with reported episode. no other events reported. EKG today SR 55. TSH 3.690, T4 8.9, T3 30%, free thyroxine 2.7. Mg 2.5 will check home sleep study Jessica Linsey BRUSHING MACHINE OPERATOR Cardiology: C HECK TELE S TART MAGOXIDE 400MG DAILY S TART TOPROLXL 25MG DAILY S TART ASA 81MG C HECK EHCO AND TSH H FAM HX OF LENA B 07/09/24 14 day tele: min 46, av 63, max 110. PSVT. VE: <0.1% SVE <0.1%. no AFIB. ECHO: EF 65%, trace CT, trace TR, trace MR. pt states that her she did have an episode of 'fast heart rate after monitor was placed'. review of strips, 06/[address] 110 (placed 06/13) which could have corresponded with reported episode. no other events reported. EKG today SR 55. TSH 3.690, T4 8.9, T3 30%, free thyroxine 2.7. Mg 2.5. discuss the option of ILR in the future if pt would have recurrence of palpitations Jessica Stiles NP Cardiology:No afib n oted on previous monitor. Strong family hx of afib. WIll repeat tele for 2weeks and get sleep study to evaluate causes. WIll start ASA now. Today ekg demostrates a sinus rhythmn. SARAH Castellon DNP Cardiology:CHECK TEL E S TART MAGOXIDE 400MG DAILY S TART TOPROLXL 25MG DAILY S TART ASA 81MG C HECK EHCO AND TSH H FAM HX OF LENA B SARAH Castellon DNP Cardiology:Do not kn ow if this is afib or sct. will try to capture Jeancarlos Maurice MD Cardiology:She has l ost 90 pounds and will give her a 30 monitor and an echo. G et her lab work from the pcp Jeancarlos Maurice MD Date Name Sleep Study Home MAGNESIUM TSH, free T4, total T3 Sleep Study Home Complete Echo Monitor - Telemetry (Mobile Cardiac) Monitor - Telemetry (Mobile Cardiac) Complete Echo HISTORY OF PROCEDURES Procedure Date Procedure Name Provider Procedure Notes S tatus Schedule Followup Yesenia Lyle MD 6 months completed EKG Yesenia Lyle MD compl eted EKG Yesenia Lyle MD compl eted EKG Jeancarlos Maurice MD completed
--- OUTSIDE RECORDS SUMMARY | 2024-08-29 07:40 | XMS_ITS | Patient Health Summary ---
Author Organization [facility] Address [address] [place] [address] Care Team Providers Care Electronic Engineering Technician Name Role Phone Elio Fleming MD Primary Care Provider Unav ailable Note from [facility],non-owned Affiliates and Associated Physician Practices is amultiple site organization consisting of ambulatory clinics and hospital sitesin [place], [place], [place] and [place]. This disclosure is being madepursuant to the Care Everywhere program and may not contain all information available regarding this patient. Last updated 18.[facility] Allergies * Penicillins(Skin Reactions) -Medium Criticality Medications * Be aware that medications may not be up to date on this document. Alwaysverify current medications with the patient. * clobetasol (TEMOVATE) 0.05 % ointment(Started 11/02/2018) Apply to affected area 2 times daily as needed (to groin) * levothyroxine (SYNTHROID) 88 MCG tablet Take 1 (one) tablet by mouth once daily * escitalopram (LEXAPRO) 20 MG tablet(Started 10/28/2018) Take 1 (one) tablet by mouth once daily * vitamin D, ergocalciferol, (DRISDOL) 1.25 MG (88613 UT) capsule(Started 09/12/2019) Take 1 capsule by mouth every 7 days * buPROPion XL 24hr (Wellbutrin-XL) 150 MG tablet(Started 08/25/2023) Take 1 tablet every day by oral route. 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 Morbid (severe) obesity due to excess calories 0 09/26/2012 Body mass index (BMI) of 40.0-44.9 in adult 09/17 Stress incontinence 09/26/2012 Social History Tobacco Use Types Packs/Day Years Used Date Smoking Tobacco: Former Cigarettes Q uit: 06/19/1997 Smokeless Tobacco: Never Alcohol Use Standard Drinks/Week Comments Yes 0 (1 standard drink = 0.6 oz pur e alcohol) occasional Sex and Gender Information Value Date Recorded Sex Assigned at Female 04/15/2022 8:45 PM CDT Gender Identity Female 04/15/2022 8:45 PM CDT Sexual Orientation Straight 04/15/2022 8: 45 PM CDT Last Filed Vital Signs Vital Sign Reading Time Taken Comments Blood Pressure 124/76 09/19/2023 2:20 PM CDT Pulse 56 09/19/2023 2:20 PM CDT Temperature 37.1 C (98.7 F) 09/19/2023 2:20 PM CDT Respiratory Rate 16 09/19/2023 2:20 PM CDT Oxygen Saturation 99% 09/19/2023 2:20 PM CDT Inhaled Oxygen Concentration - - Weight 92.5 kg (204 lb) 09/19/2023 2:20 PM CDT Height 165.1 cm (5' 5 ) 09/19/2023 2:20 PM CDT Body Mass Index 33.95 09/19/2023 2:20 PM CDT Procedures * ZINC BLOOD(Performed 08/29/2023) Performed for Morbid obesity (HCC), Bariatric surgery status, Vitamin deficiency, Vitamin D deficiency, Postsurgical malabsorption (HCC) * VITAMIN K1(Performed 08/29/2023) Performed for Morbid obesity (HCC), Bariatric surgery status, Vitamin deficiency, Vitamin D deficiency, Postsurgical malabsorption (HCC) * VITAMIN E(Performed 08/29/2023) Performed for Morbid obesity (HCC), Bariatric surgery status, Vitamin deficiency, Vitamin D deficiency, Postsurgical malabsorption (HCC) * VITAMIN D 25-HYDROXY(Performed 08/29/2023) Performed for Morbid obesity (HCC), Bariatric surgery status, Vitamin deficiency, Vitamin D deficiency, Postsurgical malabsorption (HCC) * VITAMIN B12(Performed 08/29/2023) Performed for Morbid obesity (HCC), Bariatric surgery status, Vitamin deficiency, Vitamin D deficiency, Postsurgical malabsorption (HCC) * VITAMIN B1(Performed 08/29/2023) Performed for Morbid obesity (HCC), Bariatric surgery status, Vitamin deficiency, Vitamin D deficiency, Postsurgical malabsorption (HCC) * VITAMIN A(Performed 08/29/2023) Performed for Morbid obesity (HCC), Bariatric surgery status, Vitamin deficiency, Vitamin D deficiency, Postsurgical malabsorption (HCC) * PTH INTACT(Performed 08/29/2023) Performed for Morbid obesity (HCC), Bariatric surgery status, Vitamin deficiency, Vitamin D deficiency, Postsurgical malabsorption (HCC) * MAGNESIUM BLOOD(Performed 08/29/2023) Performed for Morbid obesity (HCC), Bariatric surgery status, Vitamin deficiency, Vitamin D deficiency, Postsurgical malabsorption (HCC) * IRON + TIBC PANEL(Performed 08/29/2023) Performed for Morbid obesity (HCC), Bariatric surgery status, Vitamin deficiency, Vitamin D deficiency, Postsurgical malabsorption (HCC) * FOLATE(Performed 08/29/2023) Performed for Morbid obesity (HCC), Bariatric surgery status, Vitamin deficiency, Vitamin D deficiency, Postsurgical malabsorption (HCC) * FERRITIN(Performed 08/29/2023) Performed for Morbid obesity (HCC), Bariatric surgery status, Vitamin deficiency, Vitamin D deficiency, Postsurgical malabsorption (HCC) * COPPER BLOOD(Performed 08/29/2023) Performed for Morbid obesity (HCC), Bariatric surgery status, Vitamin deficiency, Vitamin D deficiency, Postsurgical malabsorption (HCC) * COMPREHENSIVE METABOLIC PANEL(Performed 08/29/2023) Performed for Morbid obesity (HCC), Bariatric surgery status, Vitamin deficiency, Vitamin D deficiency, Postsurgical malabsorption (HCC) * CBC W/O DIFFERENTIAL(Performed 08/29/2023) Performed for Morbid obesity (HCC), Bariatric surgery status, Vitamin deficiency, Vitamin D deficiency, Postsurgical malabsorption (HCC) * VITAMIN D 25-HYDROXY(Performed 07/31/2019) Performed for Bariatric surgery status, Morbid obesity (HCC), BMI 34.0- 34.9,adult, Postsurgical malabsorption (HCC), Vitamin D deficiency, Vitamin deficiency * IRON + TIBC PANEL(Performed 07/31/2019) Performed for Bariatric surgery status, Morbid obesity (HCC), BMI 34.0- 34.9,adult, Postsurgical malabsorption (HCC), Vitamin D deficiency, Vitamin deficiency * FOLATE(Performed 07/31/2019) Performed for Bariatric surgery status, Morbid obesity (HCC), BMI 34.0- 34.9,adult, Postsurgical malabsorption (HCC), Vitamin D deficiency, Vitamin deficiency * ZINC BLOOD(Performed 07/31/2019) Performed for Bariatric surgery status, Morbid obesity (HCC), BMI 34.0- 34.9,adult, Postsurgical malabsorption (HCC), Vitamin D deficiency, Vitamin deficiency * VITAMIN K1(Performed 07/31/2019) Performed for Bariatric surgery status, Morbid obesity (HCC), BMI 34.0- 34.9,adult, Postsurgical malabsorption (HCC), Vitamin D deficiency, Vitamin deficiency * VITAMIN E(Performed 07/31/2019) Performed for Bariatric surgery status, Morbid obesity (HCC), BMI 34.0- 34.9,adult, Postsurgical malabsorption (HCC), Vitamin D deficiency, Vitamin deficiency * VITAMIN B12(Performed 07/31/2019) Performed for Bariatric surgery status, Morbid obesity (HCC), BMI 34.0- 34.9,adult, Postsurgical malabsorption (HCC), Vitamin D deficiency, Vitamin deficiency * VITAMIN B1(Performed 07/31/2019) Performed for Bariatric surgery status, Morbid obesity (HCC), BMI 34.0- 34.9,adult, Postsurgical malabsorption (HCC), Vitamin D deficiency, Vitamin deficiency * VITAMIN A(Performed 07/31/2019) Performed for Bariatric surgery status, Morbid obesity (HCC), BMI 34.0- 34.9,adult, Postsurgical malabsorption (HCC), Vitamin D deficiency, Vitamin deficiency * SELENIUM(Performed 07/31/2019) Performed for Bariatric surgery status, Morbid obesity (HCC), BMI 34.0- 34.9,adult, Postsurgical malabsorption (HCC), Vitamin D deficiency, Vitamin deficiency * PTH INTACT(Performed 07/31/2019) Performed for Bariatric surgery status, Morbid obesity (HCC), BMI 34.0- 34.9,adult, Postsurgical malabsorption (HCC), Vitamin D deficiency, Vitamin deficiency * MAGNESIUM BLOOD(Performed 07/31/2019) Performed for Bariatric surgery status, Morbid obesity (HCC), BMI 34.0- 34.9,adult, Postsurgical malabsorption (HCC), Vitamin D deficiency, Vitamin deficiency * FERRITIN(Performed 07/31/2019) Performed for Bariatric surgery status, Morbid obesity (HCC), BMI 34.0- 34.9,adult, Postsurgical malabsorption (HCC), Vitamin D deficiency, Vitamin deficiency * COPPER BLOOD(Performed 07/31/2019) Performed for Bariatric surgery status, Morbid obesity (HCC), BMI 34.0- 34.9,adult, Postsurgical malabsorption (HCC), Vitamin D deficiency, Vitamin deficiency * COMPREHENSIVE METABOLIC PANEL(Performed 07/31/2019) Performed for Bariatric surgery status, Morbid obesity (HCC), BMI 34.0- 34.9,adult, Postsurgical malabsorption (HCC), Vitamin D deficiency, Vitamin deficiency * CBC W/O DIFFERENTIAL(Performed 07/31/2019) Performed for Bariatric surgery status, Morbid obesity (HCC), BMI 34.0- 34.9,adult, Postsurgical malabsorption (HCC), Vitamin D deficiency, Vitamin deficiency * FL UGI SERIES(Performed 01/31/2019) Performed for S/P gastric bypass * GLUCOSE - POINT OF CARE(Performed 01/31/2019) * BASIC METABOLIC PANEL (CALCIUM TOTAL)(Performed 01/31/2019) * GLUCOSE - POINT OF CARE(Performed 01/31/2019) * CBC W AUTO DIFFERENTIAL(Performed 01/31/2019) * VITAMIN D 25-HYDROXY(Performed 01/31/2019) * GLUCOSE - POINT OF CARE(Performed 01/30/2019) * GLUCOSE - POINT OF CARE(Performed 01/30/2019) * HOME CPAP/BIPAP FOR HOSP USE: NOCTURNAL 02(Performed 01/30/2019) * GLUCOSE - POINT OF CARE(Performed 01/30/2019) * ENDOTRACHEAL TUBE NOTE(Performed 01/30/2019) * LAPAROSCOPIC GASTRIC BYPASS(Performed 01/30/2019) * GLUCOSE - POINT OF CARE(Performed 01/30/2019) * POTASSIUM BLOOD(Performed 01/30/2019) * VITAMIN B12(Performed 01/09/2019) Performed for Preop examination * VITAMIN B1(Performed 01/09/2019) Performed for Preop examination * COMPREHENSIVE METABOLIC PANEL(Performed 01/09/2019) Performed for Preop examination * FL UGI SERIES(Performed 10/02/2018) Performed for Morbid obesity (HCC), Pre-op testing * LAB(Performed 09/28/2018) Results * VITAMIN K1 (08/29/2023 12:25 PM CDT) Only the most recent of2 resultswithin the time period is included. Vitamin K1 0.42 0.10 - 2.20 ng/mL [facility] ACCOUNT BILL Blood BLOOD SPECIMEN / Unknown 08/29/2023 12:25 PM CDT 08/29/2023 Narrative [facility] ACCOUNT BILL - 09/01/2023 6:07 AM CDT Test(s) [id number]-[id number] K1 was developed and its performance characteristics determined by [facility]. It has not been cleared or approved by the Food and Drug Administration. Resulting Agency Comment Lab Testing performed at: [facility] [id number] Nicol Cintron APRN-CAPTAIN FISHING VESSEL LAB - CHEMIS TRY ORDERABLES Performing Organization Address [facility] Phone Number [facility] ACCOUNT BILL [address] [place] [address] * ZINC BLOOD (08/29/2023 12:25 PM CDT) Only the most recent of2 resultswithin the time period is included. Zinc, Plasma or Serum 65 44 - 115 ug/dL [facility] ACCOUNT BILL Comment:Detection Limit = 5 Blood BLOOD SPECIMEN / Unknown 08/29/2023 12:25 PM CDT 08/29/2023 Narrative [facility] ACCOUNT BILL - 08/31/2023 7:07 AM CDT Test(s) [id number]-[id number], Serum or Plasma; 346176-Cnty, Plasma or Serum was developed and its performance characteristics determined by [facility]. It has not been cleared or approved by the Food and Drug Administration. Resulting Agency Comment Lab Testing performed at: [facility] [address] [id number] Nicol Cintron APRN-CAPTAIN FISHING VESSEL LAB - CHEMIS TRY ORDERABLES Performing Organization Address [facility] de Phone Number [facility] ACCOUNT BILL [address] [place] [address] * VITAMIN A (08/29/2023 12:25 PM CDT) Only the most recent of2 resultswithin the time period is included. Vitamin A 37.4 20.1 - 62.0 ug/dL [facility] ACCOUNT BILL Comment: Reference intervals for vitamin A determined from [facility] internal studies. Individuals with vitamin A less than 20 ug/dL are considered vitamin A deficient and those with serum concentrations less than 10 ug/dL are considered severely deficient. . This test was developed and its performance characteristics determined by [facility]. It has not been cleared or approved by the Food and Drug Administration. Blood BLOOD SPECIMEN / Unknown 08/29/2023 12:25 PM CDT 08/29/2023 Narrative [facility] ACCOUNT BILL - 09/03/2023 2:06 PM CDT A courtesy copy of this report has been sent to [facility] of, Test(s) 364471-Zjvkueq E(Alpha Tocopherol); 168367- Vitamin E(Gamma Tocopherol) was developed and its performance characteristics determined by [facility]. It has not been cleared or approved by the Food Resulting Agency Comment Lab Testing performed at: [facility] [id number] Nicol Cintron APRN-CAPTAIN FISHING VESSEL LAB - CHEMIS TRY ORDERABLES [facility] ACCOUNT BILL [address] [place] [address] * VITAMIN E (08/29/2023 12:25 PM CDT) Only the most recent of2 resultswithin the time period is included. Vitamin E Alpha Tocopherol 8.1 7.0 - 25.1 mg/L [facility] ACCOUNT BILL Vitamin E Gamma Tocopherol 1.0 0.5 - 5.5 mg/L [facility] ACCOUNT BILL Comment: Reference intervals for alpha and gamma-tocopherol determined from National Health and Nutrition Examination Survey, 3338-4025. Individuals with alpha-tocopherol levels less than 5.0 mg/L are considered vitamin E deficient. Blood BLOOD SPECIMEN / Unknown 08/29/2023 12:25 PM CDT 08/29/2023 Narrative [facility] ACCOUNT BILL - 09/03/2023 2:06 PM CDT A courtesy copy of this report has been sent to [facility], Test(s) 238188-Eaxtdat E(Alpha Tocopherol); 244446- Vitamin E(Gamma Tocopherol) was developed and its performance characteristics determined by [facility]. It has not been cleared or approved by the Food Resulting Agency Comment Lab Testing performed at: [facility] [address] [phone] Nicol Cintron APRN-CAPTAIN FISHING VESSEL LAB - CHEMIS TRY ORDERABLES Performing Organization Address [facility] Co de Phone Number [facility] ACCOUNT BILL [address] [place] [address] * VITAMIN B1 (08/29/2023 12:25 PM CDT) Only the most recent of3 resultswithin the time period is included. Vitamin B1 Whole Blood 134.0 66.5 - 200.0 nmol/L [facility] ACCOUNT BILL Blood BLOOD SPECIMEN / Unknown 08/29/2023 12:25 PM CDT 08/29/2023 Narrative [facility] ACCOUNT BILL - 09/01/2023 12:08 PM CDT Test(s) 561294-Zae. B1, Whole Blood was developed and its performance characteristics determined by [facility]. It has not been cleared or approved by the Food and Drug Administration. Resulting Agency Comment Lab Testing performed at: [facility] [address] [phone] Nicol Cintron APRN-CAPTAIN FISHING VESSEL LAB - CHEMIS TRY ORDERABLES Performing Organization Address City/[facility]/ZIP Co de Phone Number [facility] ACCOUNT BILL [address] [place] [address] * PTH INTACT (08/29/2023 12:25 PM CDT) Only the most recent of2 resultswithin the time period is included. PTH Intact 63 15 - 65 pg/mL [facility] ACCOUNT BILL Blood BLOOD SPECIMEN / Unknown 08/29/2023 12:25 PM CDT 08/29/2023 Narrative Resulting Agency Comment Lab Testing performed at: [facility] [place] [address] [facility] [phone] Nicol ROJAS LAB - CHEMIS TRY ORDERABLES Performing Organization Address City/[facility]/ZIP Co de Phone Number [facility] ACCOUNT BILL [address] [place] [address] * COPPER BLOOD (08/29/2023 12:25 PM CDT) Only the most recent of2 resultswithin the time period is included. Copper 110 80 - 158 ug/dL [facility] ACCOUNT BILL Comment:Detection Limit = 5 Blood BLOOD SPECIMEN / Unknown 08/29/2023 12:25 PM CDT 08/29/2023 Narrative [facility] ACCOUNT BILL - 08/31/2023 7:07 AM CDT Test(s) [id number]-Vrpgvj, Serum or Plasma; 596566-Yvwv, Plasma or Serum was developed and its performance characteristics determined by [facility]. It has not been cleared or approved by the Food and Drug Administration. Resulting Agency Comment Lab Testing performed at: [facility] [address] [id number] Nicol ROJAS LAB - CHEMIS TRY ORDERABLES Performing Organization Address City/[facility]/ZIP Co de Phone Number [facility] ACCOUNT BILL [address] [place] [address] * (ABNORMAL) VITAMIN D 25-HYDROXY (08/29/2023 12:25 PM CDT) Only the most recent of3 resultswithin the time period is included. Vitamin D, 25 Hydroxy 18.3(L) 30.0 - 100.0 ng/mL [facility] ACCOUNT BILL Comment: Vitamin D deficiency has been defined by the [place] of Medicine and an Endocrine Society practice guideline as a level of serum 25-OH vitamin D less than 20 ng/mL (1,2). The Endocrine Society went on to further define vitamin D insufficiency as a level between 21 and 29 ng/mL (2). 1. IOM ([place] of Medicine). 2010. Dietary reference intakes for calcium and D. [place]: The National Academies Press. 2. Sofia QUEEN, Oscar BRODERICK, Benny OVALLE, et al. Evaluation, treatment, and prevention of vitamin D deficiency: an Endocrine Society clinical practice guideline. JCEM. 2010; 967):1911-30. Blood BLOOD SPECIMEN / Unknown 08/29/2023 12:25 PM CDT 08/29/2023 Narrative Resulting Agency Comment Lab Testing performed at: [facility] [id number] Nicol Cintron APRN-CAPTAIN FISHING VESSEL LAB - CHEMIS TRY ORDERABLES [facility] ACCOUNT BILL [address] [place] [address] * CBC W/O DIFFERENTIAL (08/29/2023 12:25 PM CDT) Only the most recent of2 resultswithin the time period is included. WBC 5.8 3.4 - 10.8 x10E3/uL [facility] ACCOUNT BILL RBC 4.06 3.77 - 5.28 x10E6/uL [facility] ACCOUNT BILL Hemoglobin 12.6 11.1 - 15.9 g/dL [facility] ACCOUNT BILL Hematocrit 38.4 34.0 - 46.6 % [facility] ACCOUNT BILL MCV 95 79 - 97 fL [facility] ACCOUNT BILL MCH 31.0 26.6 - 33.0 pg [facility] ACCOUNT BILL MCHC 32.8 31.5 - 35.7 g/dL [facility] ACCOUNT BILL RDW 12.0 11.7 - 15.4 % [facility] ACCOUNT BILL Platelet Count 276 150 - 450 x10E3/uL [facility] ACCOUNT BILL nRBC NOT AVAILABLE [facility] ACCOUNT BILL Comment:Result cannot be obt ained for this observation. Blood BLOOD SPECIMEN / Unknown 08/29/2023 12:25 PM CDT 08/29/2023 Narrative Resulting Agency Comment Lab Testing performed at: [facility] [phone] Nicol Cintron APRN-CAPTAIN FISHING VESSEL LAB - HEMATO LOGY ORDERABLES [facility] ACCOUNT BILL [address] [place] [address] * COMPREHENSIVE METABOLIC PANEL (08/29/2023 12:25 PM CDT) Only the most recent of3 resultswithin the time period is included. Glucose 90 70 - 99 mg/dL [facility] ACCOUNT BILL BUN 17 6 - 24 mg/dL [facility] ACCOUNT BILL Creatinine 0.87 0.57 - 1.00 mg/dL [facility] ACCOUNT BILL eGFR by CKD-EPI 79 >59 mL/min/1.7 3 [facility] ACCOUNT BILL BUN/Creatinine Ratio 20 9 - 23 [facility] ACCOUNT BILL Sodium 142 134 - 144 mmol/L [facility] ACCOUNT BILL Potassium 4.7 3.5 - 5.2 mmol/L [facility] ACCOUNT BILL Chloride 105 96 - 106 mmol/L [facility] ACCOUNT BILL CO2 23 20 - 29 mmol/L [facility] ACCOUNT BILL Calcium 9.4 8.7 - 10.2 mg/dL [facility] ACCOUNT BILL Protein Total 6.6 6.0 - 8.5 g/dL [facility] ACCOUNT BILL Albumin 4.5 3.8 - 4.9 g/dL [facility] ACCOUNT BILL Globulin Total 2.1 1.5 - 4.5 g/dL [facility] ACCOUNT BILL Albumin/Globulin Ratio 2.1 1.2 - 2.2 [facility] ACCOUNT BILL Bilirubin Total 0.6 0.0 - 1.2 mg/dL [facility] ACCOUNT BILL Alkaline Phosphatase 104 44 - 121 IU/L [facility] ACCOUNT BILL AST 20 0 - 40 IU/L [facility] ACCOUNT BILL ALT 16 0 - 32 IU/L [facility] ACCOUNT BILL Blood BLOOD SPECIMEN / Unknown 08/29/2023 12:25 PM CDT 08/29/2023 Narrative Resulting Agency Comment Lab Testing performed at: [facility] [place] [address] [facility] [phone] Nicol Cintron DIGESTER CAPPER-CAPTAIN FISHING VESSEL LAB - CHEMIS TRY ORDERABLES [facility] ACCOUNT BILL [address] [place] [address] * MAGNESIUM BLOOD (08/29/2023 12:25 PM CDT) Only the most recent of2 resultswithin the time period is included. Magnesium 2.1 1.6 - 2.3 mg/dL [facility] ACCOUNT BILL Blood BLOOD SPECIMEN / Unknown 08/29/2023 12:25 PM CDT 08/29/2023 Narrative Resulting Agency Comment Lab Testing performed at: [facility] [address] [facility] [id number] Nicol Cintron APRN-CAPTAIN FISHING VESSEL LAB - CHEMIS TRY ORDERABLES Performing Organization Address City/[facility] Co de Phone Number [facility] ACCOUNT BILL [address] [place] [address] * IRON + TIBC PANEL (08/29/2023 12:25 PM CDT) Only the most recent of2 resultswithin the time period is included. TIBC 397 250 - 450 ug/dL [facility] ACCOUNT BILL UIBC 301 131 - 425 ug/dL [facility] ACCOUNT BILL Iron 96 27 - 159 ug/dL [facility] ACCOUNT BILL Iron Saturation 24 15 - 55 % [facility] ACCOUNT BILL Blood BLOOD SPECIMEN / Unknown 08/29/2023 12:25 PM CDT 08/29/2023 Narrative [facility] ACCOUNT BILL - 08/30/2023 9:08 AM CDT A courtesy copy of this report has been sent to [phone] Resulting Agency Comment Lab Testing performed at: [facility] [place] [address] [facility] [phone] Nicol Cintron APRN-CAPTAIN FISHING VESSEL LAB - CHEMIS TRY ORDERABLES Performing Organization Address City/[facility] Co de Phone Number [facility] ACCOUNT BILL [address] [place] [address] * FOLATE (08/29/2023 12:25 PM CDT) Only the most recent of2 resultswithin the time period is included. Folate 9.2 >3.0 ng/mL [facility] ACCOUNT BILL Comment: A serum folate concentration of less than 3.1 ng/mL is considered to represent clinical deficiency. Blood BLOOD SPECIMEN / Unknown 08/29/2023 12:25 PM CDT 08/29/2023 Narrative [facility] ACCOUNT BILL - 08/30/2023 9:08 AM CDT A courtesy copy of this report has been sent to [phone] Resulting Agency Comment Lab Testing performed at: [facility] [place] [address] [facility] [place] [phone] Nicol Cintron APRN-CAPTAIN FISHING VESSEL LAB - CHEMIS TRY ORDERABLES [facility] ACCOUNT BILL [address] [place] [address] * VITAMIN B12 (08/29/2023 12:25 PM CDT) Only the most recent of3 resultswithin the time period is included. Vitamin B12 290 232 - 1,245 pg/mL [facility] ACCOUNT BILL Blood BLOOD SPECIMEN / Unknown 08/29/2023 12:25 PM CDT 08/29/2023 Narrative Resulting Agency Comment Lab Testing performed at: [facility] [place] [address] [facility] [place] [id number] Nicol Cintron APRN-CAPTAIN FISHING VESSEL LAB - CHEMIS TRY ORDERABLES Performing Organization Address City/[facility] Co de Phone Number [facility] ACCOUNT BILL [address] [place] [address] * FERRITIN (08/29/2023 12:25 PM CDT) Only the most recent of2 resultswithin the time period is included. Ferritin 31 15 - 150 ng/mL [facility] ACCOUNT BILL Blood BLOOD SPECIMEN / Unknown 08/29/2023 12:25 PM CDT 08/29/2023 Narrative Resulting Agency Comment Lab Testing performed at: [facility] [place] [address] [facility] [phone] Niclo Cintron APRN-CAPTAIN FISHING VESSEL LAB - CHEMIS TRY ORDERABLES [facility] ACCOUNT BILL [address] [place] [address] * SELENIUM (07/31/2019 12:39 PM PROGRAM MANAGEMENT PROFESSIONAL) Selenium 122 91 - 198 ug/L [facility] ACCOUNT BILL Blood BLOOD SPECIMEN / Unknown 07/31/2019 12:39 PM PROGRAM MANAGEMENT PROFESSIONAL 07/31/2019 Narrative [facility] ACCOUNT BILL - 08/01/2019 8:06 PM PROGRAM MANAGEMENT PROFESSIONAL Test(s) [id number]-Bnyraoib, Serum/Plasma was developed and its performance characteristics determined by [facility]. It has not been cleared or approved by the Food and Drug Administration. Resulting Agency Comment Lab Testing performed at: [facility] [address] [id number] Nicol Cintron DIGESTER CAPPER-CAPTAIN FISHING VESSEL LAB - CHEMIS TRY ORDERABLES [facility] ACCOUNT BILL [address] [place] [address] * FL UGI SERIES WO KUB (01/31/2019 9:25 AM CDT) Only the most recent of2 resultswithin the time period is included. Anatomical Region Laterality Modality Abdomen Radiographic Ifrah ging 01/31/2019 3:24 PM CDT Impressions 01/31/2019 3:25 PM CDT No evidence of leak or obstruction. Reading Radiologist: Meir Olguin MD on 01/31/2019 at 3:25 PM Narrative 01/31/2019 3:25 PM CDT Limited Upper GI after Gastric Bypass Indication: Morbid obesity, gastric surgery, gastric leak. Findings: Fluoroscopy of the gastric remnant was performed following ingestion of oral contrast media. There is no evidence of leak. There is prompt emptying into the small bowel. Total Fluoro Time = 59 seconds, no spot fluoroscopic imaging was obtained as cine' fluoroscopy was utilized with cine' fluoroscopy images saved in video format. Procedure Note Meir Olguin MD - 01/31/2019 Limited Upper GI after Gastric Bypass Indication: Morbid obesity, gastric surgery, gastric leak. Findings: Fluoroscopy of the gastric remnant was performed following ingestion of oral contrast media. There is no evidence of leak. There is prompt emptying into the small bowel. Total Fluoro Time = 59 seconds, no spot fluoroscopic imaging was obtained as cine' fluoroscopy was utilized with cine' fluoroscopy images saved in video format. IMPRESSION No evidence of leak or obstruction. Reading Radiologist: Meir Olguin MD on 01/31/2019 at 3:25 PM Chapo Lu MD FLUOROSCOPY ORDERABL ES * (ABNORMAL) GLUCOSE - POINT OF CARE (01/31/2019 8:19 AM CDT) Only the most recent of6 resultswithin the time period is included. Glucose WB/POC 122(H) 70 - 106 mg/dL 01/31/2019 9:02 PM CDT [facility] Specimen Type Arterial/C apillary 01/31/2019 9:02 PM CDT [facility] Blood BLOOD SPECIMEN / Unknown 01/31/2019 8:19 AM CDT 01/31/2019 9:02 PM CDT Chapo Lu MD LAB - POINT OF CARE ORDERABLES [facility] [address] [place] [address] * (ABNORMAL) BASIC METABOLIC PANEL (CALCIUM TOTAL) (01/31/2019 4:49 AM CDT) Glucose 129(H) 74 - 106 mg/dL 01/31/2019 5:33 AM CDT [facility] Sodium 137 136 - 145 mmol/L 01/31/2019 5:33 AM CDT [facility] Potassium 5.0 3.5 - 5.1 mmol/L 01/31/2019 5:33 AM CDT [facility] Chloride 107 98 - 107 mmol/L 01/31/2019 5:33 AM CDT [facility] CO2 25 23 - 31 mmol/L 01/31/2019 5:33 AM CDT [facility] Calcium 9.1 8.4 - 10.2 mg/dL 01/31/2019 5:33 AM CDT [facility] Anion Gap 5(L) 8 - 16 mmol/L 01/31/2019 5:33 AM CDT [facility] BUN 15 9.8 - 20.1 mg/dL 01/31/2019 5:33 AM CDT [facility] Creatinine 1.05(H) 0.55 - 1.02 mg/dL 01/31/2019 5:33 AM CDT [facility] eGFR by MDRD 55(L) >60 mL/min/1.7 3m2 01/31/2019 5:33 AM CDT [facility] eGFR by MDRD >60 >60 mL/min/1.7 3m2 01/31/2019 5:33 AM CDT [facility] Blood BLOOD SPECIMEN / Unknown Venipuncture / Unknown 01/31/2019 4:49 AM CDT 01/31/2019 5:04 AM CDT Chapo Lu MD LAB - CHEMISTRY VERA VALLADARES [facility] Organization Address City/State/ZIP Co de Phone Number [facility] [address] [place] [address] * (ABNORMAL) CBC W AUTO DIFFERENTIAL (01/31/2019 2:41 AM CDT) WBC 10.3 4.4 - 10.7 x10E9/L 01/31/2019 3:47 AM CDT [facility] WBC Corrected 01/31/2019 3:47 AM CDT [facility] RBC 3.85 3.80 - 5.20 x10E12/L 01/31/2019 3:47 AM CDT [facility] Hemoglobin 12.1 12.0 - 15.6 gm/dL 01/31/2019 3:47 AM CDT [facility] Hematocrit 37.0 35.9 - 45.5 % 01/31/2019 3:47 AM CDT [facility] MCV 96.1 80.7 - 98.3 fl 01/31/2019 3:47 AM CDT [facility] MCH 31.4 26.7 - 34.0 pg 01/31/2019 3:47 AM CDT [facility] MCHC 32.7 30.8 - 35.9 gm/dL 01/31/2019 3:47 AM CDT [facility] Platelet Count 272 153 - 416 x10E9/L 01/31/2019 3:47 AM CDT [facility] RDW-CV 12.9 12.1 - 14.9 % 01/31/2019 3:47 AM CDT [facility] MPV 11.8 9.4 - 12.9 fl 01/31/2019 3:47 AM CDT [facility] Neutrophils % 88.6(H) 44.0 - 73.0 % 01/31/2019 3:47 AM CDT [facility] Lymphocytes % 7.2(L) 20.0 - 43.0 % 01/31/2019 3:47 AM CDT [facility] Monocytes % 3.6(L) 5.0 - 13.0 % 01/31/2019 3:47 AM CDT [facility] Eosinophils % 0.0 0.0 - 6.0 % 01/31/2019 3:47 AM CDT [facility] Basophils % 0.2 0.0 - 2.0 % 01/31/2019 3:47 AM CDT [facility] Immature Granulocytes 0.4 0 - 1 % 01/31/2019 3:47 AM CDT [facility] Neutrophil Absolute 9.09(H) 2.01 - 7.14 x10E9/L 01/31/2019 3:47 AM CDT [facility] Lymphocytes Absolute 0.74(L) 1.07 - 3.94 x10E9/L 01/31/2019 3:47 AM CDT [facility] Monocytes Absolute 0.37 0.26 - 1.07 x10E9/L 01/31/2019 3:47 AM CDT [facility] Eosinophils Absolute 0.00 0 - 0.47 x10E9/L 01/31/2019 3:47 AM CDT [facility] Basophils Absolute 0.02 0 - 0.08 x10E9/L 01/31/2019 3:47 AM CDT [facility] Immature Granulocytes Absolute 0.04 0.00 - 0.06 x10E9/L 01/31/2019 3:47 AM CDT [facility] nRBC Auto 0 /100 WBC 01/31/2019 3:47 AM CDT [facility] Blood BLOOD SPECIMEN / Unknown Venipuncture / Unknown 01/31/2019 2:41 AM CDT 01/31/2019 3:39 AM CDT Chapo Lu MD LAB - HEMATOLOGY ORD ERABLES [facility] [address] [place] [address] * ENDOTRACHEAL TUBE NOTE (01/30/2019 10:54 AM CDT) Narrative Austin Guerrero APRN-CRNA - 01/30/2019 10:54 AM CDT Austin Guerrero APRN-CRNA 01/30/2019 10:55 AM Endotracheal Tube Placement: Patient Location: OR. Intubation Event Date/Time: 01/30/2019 10:40 AM Procedure: intubation ([id number]). Procedure Section: Sedation: under general anesthesia. Indications for Airway Management: anesthesia Induction: standard IV Patient Position: sniffing Mask Ventilation: easy. Blade Type: Pat Blade Size: 3 Laryngoscopy View: grade 2 (partial cords) Intubation Adjuncts: stylet Device: endotracheal tube Placement: oral Tube type: endotracheal tube Tube Size (MM): 7 Depth of Insertion (CM): 22 Measured From: lips Cuff volume (mL): 6 Cuff Inflated With: air Number of Attempts: 1. Placement Verified By: direct visualization, bilateral breath sounds, chest auscultation and CO2 monitor Tube secured with: adhesive tape. Difficult Airway? No. Procedure Start Time: 01/30/2019 10:40 AM. Procedure End Time: 01/30/2019 10:41 AM. Procedure Total Time: 1 minutes. Staff Section Anesthesia Provider: Austin Guerrero APRN-CRNA, Performed the procedure Additional Comments: Teeth, lips and oropharynx in preoperative condition. Wilda García MD GENERAL ANESTHESI A ORDERABLES * POTASSIUM BLOOD (01/30/2019 8:12 AM CDT) Potassium 4.0 3.5 - 5.1 mmol/L 01/30/2019 8:44 AM CDT [facility] Blood BLOOD SPECIMEN / Unknown Venipuncture / Unknown 01/30/2019 8:12 AM CDT 01/30/2019 8:29 AM CDT Ngozi Topete DO LAB - CHEMISTRY VERA VALLADARES [facility] [address] [place] [address] * LAB (09/28/2018) Chapo Lu MD SCANNING ONLY Care Teams Electronic Engineering Technician Relationship Specialty Start Date End Date Elio Fleming MD PCP - General 09/26/12
--- OUTSIDE RECORDS SUMMARY | 2024-08-29 07:40 | XMS_ITS | Clinical Summary ---
Author Organization [facility] Address [address] [place] [address] Care Team Providers Care Commodity Merchant Name Role Phone Elio Fleming MD Primary Care Provider [phone] Allergies Active Allergy Reactions Criticality Noted Date Comments Penicillins Hives,Rash Medium 09/26/2012 Medications levothyroxine (SYNTHROID, LEVOTHROID) 88 mcg tablet Take 88 mcg by mouth shower screen installer before breakfast Active escitalopram (LEXAPRO) 20 mg tablet Take 20 mg by mouth daily 9 Active Active Problems Problem Noted Date Diagnosed Date Abnormal stress test 10/31/2018 Obstructive sleep apnea 10/31/2018 Assessment & Plan (11/02/2018 11:03 PM CDT): Continue with CPAP at night. Seasonal allergies 10/31/2018 Preoperative clearance 09/28/2018 Assessment & Plan (11/02/2018 11:05 PM CDT): Patient does not have any contraindications from pulmonary standpoint to undergo bariatric surgery. She is at low risk for nona and post-operative complications. Assessment & Plan (10/21/2018 11:31 AM CDT): Patient does not have any contraindication to undergo bariatric surgery. She will be at moderate risk for nona and postoperative respiratory complications. Will obtain full set of PFTs for further evaluation. Former smoker 09/28/2018 Overview (10/31/2018): Smoked 3 cigarettes/day for 3 years. Assessment & Plan (11/02/2018 11:04 PM CDT): PFTs do not show any obstruction. Patient has quit smoking a long time ago. Physiological tremor 04/06/2015 Morbid (severe) obesity due to excess calories 0 09/26/2012 Assessment & Plan (10/21/2018 11:32 AM CDT): Patient is scheduled for bariatric surgery after she is cleared by Cardiology and pulmonology. Body mass index (BMI) of 40.0-44.9 in adult 09/17 History of depression 05/07/2010 Family history of breast cancer in mother 2008 Overview (10/18/2018): Age 52., uterine cancer age 66 Diffuse cystic mastopathy 05/02/2009 Overview (10/18/2018): Left breast biopsy 04-07-2008, fibrocystic change Surgical History Surgery Date Site/Laterality Comments APPENDECTOMY EYE SURGERY BREAST BIOPSY ENDOMETRIAL CRYOABLATION Medical History Medical History Date Comments Palpitations ZAINA on CPAP Follows w/ Dr. Farhan [place] Obesity Seasonal allergies Hypothyroidism Depression Anxiety Obstructive sleep apnea 10/31/2018 Family History Medical History Relation Name Comments Breast cancer Mother Family history of malignant neoplasm of breast - (Added by TW Conv) Uterine cancer Mother Relation Name Status Comments Father Alive Mother Alive Social History Tobacco Use Types Packs/Day Years Used Date Smoking Tobacco: Former Cigarettes 0.3 10 1 989 - 1998 Smokeless Tobacco: Never Tobacco Cessation:Counseling Given: No Personal Safety Answer Date Recorded Getting School Help Needed Not on file 09/01 Comments Unknown Sex and Gender Information Value Date Recorded Sex Assigned at Not on file Legal Sex Female 1:14 AM MUSEUM OR ZOO DIRECTOR Gender Identity Not on file Sexual Orientation Not on file Obstetrics History Last Filed Vital Signs Vital Sign Reading Time Taken Comments Blood Pressure 120/78 11/01/2018 10:35 AM CDT Pulse 76 11/01/2018 10:35 AM CDT Temperature 36.1 C (97 F) 11/01/2018 10:35 AM CDT Respiratory Rate 14 11/01/2018 10:3 5 AM CDT Oxygen Saturation 96% 11/01/2018 10: 35 AM CDT Inhaled Oxygen Concentration - - Weight 124.6 kg (274 lb 12.8 oz) 2018 10:35 AM CDT Height 166.4 cm (5' 5.51 ) 11/01/2018 1 0:35 AM CDT Body Mass Index 45.02 11/01/2018 10:35 AM CDT Plan of Treatment Health Maintenance Due Date Last Done Comments Breast Cancer Screening-Mammogram 1967 Cervical Cancer Screening 1967 Colon Cancer Screening-Colonoscopy 1967 Depression Screening 1967 Hepatitis C Screening 1967 DTaP/Tdap/Td Vaccine (1 - Tdap) 11/30/1978 Hepatitis B Screening 11/30/1985 Regular Well Visit/Exam 18-64 11/30/1985 Zoster Vaccine (1 of 2) 11/30/2017 Influenza Vaccine (#1) 2024 Pneumococcal vaccine <65 Aged Out No longer eligible based on patient's age to complete this topic Insurance [facility] CLAIMS [facility] CHOICE PLUS Care Teams Commodity Merchant Relationship Specialty Start Date End Date Elio Fleming MD PCP - General 03/13/17
--- OUTSIDE RECORDS SUMMARY | 2024-08-29 07:40 | XMS_ITS | Continuity of Care Document ---
Author Name [facility] Organization [facility] Care Team Providers Care Dry Folder Cloth Name Role Phone [facility] Unavailable Unavailable Procedures Combined list of: 1) Procedures from Department of Veterans Affairs facilities going back up to thelast 18 months, not all [place] non-surgical procedures are included; 2) All procedures from the Department of Defense facilities. Procedure Procedure Type Code Date Perfomer Comments Sade perez INSUFFLATION OF FALLOPIAN TUBE 06/07/1990 [facility] LAPAROSCOPY 06/07/1990 [facility] INCIDENTAL APPENDECTOMY 01/28/1993 [facility] BIOPSY OF PERITONEUM 01/28/1993 [facility] LAPAROSCOPY 01/28/1993 [facility] Social History Combined list of available smoking, tobacco, and other social history from Department of Defense and Veterans Affairs facilities. Social History Type Response Date Comment Sade perez This section is an empty social history section. [facility]
--- OUTSIDE RECORDS SUMMARY | 2024-08-29 07:40 | XMS_ITS | Clinical Summary ---
Author Organization [facility] Address [address] [place] [address] Phone Care Team Providers Care Regulatory Affairs Portfolio Leader Name Role Phone Nathanael Dale MD Primary Care Provider Allergies Active Allergy Reactions Criticality Noted Date Comments Amoxicillin Hives High 04/30/2009 Medications No known medications Active Problems Patient Care Coordination No te Formatting of this note migh t be different from the original. Primary Care: Nathanael Dale MD Referring Provider: Nathanael Dale Other: Problem Noted Date Diagnosed Date History of depression 05/07/2010 Diffuse cystic mastopathy 05/02/2009 Overview (05/02/2009): Left breast biopsy 04-07-2008, fibrocystic change Family history of breast cancer in mother 2008 Overview (05/02/2009): Age 52., uterine cancer age 66 Resolved Problems Problem Noted Date Diagnosed Date Resolved Date Psychiatric disorder 010 Overview (04/30/2009): depression Family History Medical History Relation Name Comments Breast Cancer Mother approx 50's Uterine Cancer Mother 64 Ovarian Cancer Neg Hx Relation Name Status Comments Mother Alive Social History Tobacco Use Types Packs/Day Years Used Date Smoking Tobacco: Former Comments:1989 Alcohol Use Standard Drinks/Week Comments Yes 0 (1 standard drink = 0.6 oz pur e alcohol) rarely Comments No Sex and Gender Information Value Date Recorded Sex Assigned at Not on file Legal Sex Female 4:26 AM CAR REPOSSESSOR Gender Identity Not on file Sexual Orientation Not on file Occupation Industry Job Start Date Job End Date Not on file Not on file Not on file Not on file Not on file Not on file Not on file Not on file Last Filed Vital Signs Vital Sign Reading Time Taken Comments Blood Pressure 114/76 05/07/2010 1:12 PM CAR REPOSSESSOR Pulse - - Temperature - - Respiratory Rate - - Oxygen Saturation - - Inhaled Oxygen Concentration - - Weight 96.6 kg (213 lb) 06/08/2010 8:53 PM CAR REPOSSESSOR Height 165.1 cm (5' 5 ) 05/07/2010 1:12 PM CAR REPOSSESSOR Body Mass Index 35.45 05/07/2010 1:12 PM CAR REPOSSESSOR Plan of Treatment Health Maintenance Due Date Last Done Comments DTAP/TDAP/TD VACCINES (1 - Tdap) 11/30/1986 HEPATITIS B VACCINES (1 of 3 - 19+ 3-dose series) 11/30/1986 CERVICAL CANCER SCREENING 11/30/1997 COLORECTAL SCREENING 11/30/2012 Colorectal Cancer Screening 11/30/2012 FIT-DNA Q 3 years 11/30/2012 FIT/FOBT Q 1 year 11/30/2012 Flex Sig/CT Colonography Q 5 years 11/30/2012 BREAST CANCER SCREENING 12/25/2012 12/26/19 12, 05/07/2010, 05/01/2009 ZOSTER VACCINE (1 of 2) 11/30/2017 INFLUENZA VACCINE (#1) 2024 PNEUMOCOCCAL VACCINE 0-49 YEARS Aged Out No longer eligible b ased on patient's age to complete this topic Procedures Procedure Name Priority Date/Time Associated Diagnosis Comments MAMMO SCREEN BILAT W OR WO CAD Routine 12/26/2011 3:58 PM CDT Other screening mammogram from Last 3 Months or Most Recently Relevant to Health Maintenance Results * MAMMO DIGITAL SCREEN BILAT (12/26/2011 3:58 PM CDT) Anatomical Region Laterality Modality Breast Bilateral Mammography 12/26/2011 3:57 PM CDT Narrative 12/27/2011 11:35 AM CDT BILATERAL FULL FIELD DIGITAL SCREENING MAMMOGRAM WITH CAD, 12/26/11 HISTORY: Routine Screening. TECHNIQUE: Full field digital craniocaudal and mediolateral oblique projections of both breasts were obtained. Computer aided diagnosis was performed. COMPARISON: 05/07/2010 and older BREAST PARENCHYMAL COMPOSITION: Scattered fibroglandular densities. FINDINGS: No suspicious mass, suspicious microcalcifications, or architectural distortion is identified in either breast. Since the prior study, there has been no significant interval change. Computer aided detection was used in the interpretation of this examination. OVERALL ASSESSMENT: BI-RADS category 1: Negative. RECOMMENDATION: Annual mammography is recommended. Procedure Note Divine Deng MD - 12/27/2011 BILATERAL FULL FIELD DIGITAL SCREENING MAMMOGRAM WITH CAD, 12/26/11 HISTORY: Routine Screening. TECHNIQUE: Full field digital craniocaudal and mediolateral oblique projections of both breasts were obtained. Computer aided diagnosis was performed. COMPARISON: 05/07/2010 and older BREAST PARENCHYMAL COMPOSITION: Scattered fibroglandular densities. FINDINGS: No suspicious mass, suspicious microcalcifications, or architectural distortion is identified in either breast. Since the prior study, there has been no significant interval change. Computer aided detection was used in the interpretation of this examination. OVERALL ASSESSMENT: BI-RADS category 1: Negative. RECOMMENDATION: Annual mammography is recommended. Nathanael Dale MD MAMMO ORDERABLES Final Result from Last 3 Months or Most Recently Relevant to Health Maintenance Care Teams Regulatory Affairs Portfolio Leader Relationship Specialty Start Date End Date Nathanael Dale MD PCP - General 05/01/09
--- OUTSIDE RECORDS SUMMARY | 2024-08-29 07:40 | XMS_ITS | Clinical Summary ---
Author Organization [facility] [email or web address] Address [address] [place] [address] Care Team Providers Care Shuttle Driver Name Role Phone Elio Fleming MD Primary Care Provider Unav ailable Source Comments [facility] [email or web address],non-owned Affiliates and Associated Physician Practices is amultiple site organization consisting of ambulatory clinics and hospital sitesin [place], [place], [place] and [place]. This disclosure is being madepursuant to the Care Everywhere program and may not contain all information available regarding this patient. Last updated 18.[facility] [email or web address] Allergies Active Allergy Reactions Criticality Noted Date Comments Penicillins Skin Reactions Medium 09/26/2012 Medications * Be aware that medications may not be up to date on this document. Alwaysverify current medications with the patient. Medication Sig Dispensed Refills Start Date End Date Status clobetasol (TEMOVATE) 0.05 % ointment Apply to affected area 2 times daily as needed (to groin) 11/02/2018 Active levothyroxine (SYNTHROID) 88 MCG tablet Take 1 (one) tablet by mouth once daily Active escitalopram (LEXAPRO) 20 MG tablet Take 1 (one) tablet by mouth once daily 10/28/2018 Active vitamin D, ergocalciferol, (ISDOL) 1.25 MG (56652 UT) capsuleIndications:V itamin D deficiency,Increased PTH level Take 1 capsule by mouth every 7 days 12 capsule 09/12/2019 Active buPROPion XL 24hr (Wellbutrin-XL) 150 MG tablet Take 1 tablet every day by oral route. 08/25/2023 Active vitamin D, ergocalciferol, (Drisdol) 1.25 MG (14357 UT) capsule Take 1 (one) capsule by mouth every 7 days 12 capsule 09/04/2023 Active Active Problems Problem Noted Date Diagnosed Date S/P gastric bypass 01/30/2019 Intrinsic sphincter deficiency (ISD) 04/02/2015 Morbid (severe) obesity due to excess calories 0 09/26/2012 Body mass index (BMI) of 40.0-44.9 in adult 09/17 Stress incontinence 09/26/2012 Family History Medical History Relation Name Comments Arthritis - Osteo Father Cancer - Breast Mother Cancer - Ovarian Mother Relation Name Status Comments Father Mother Social History Tobacco Use Types Packs/Day Years [...] Mass Index 33.95 09/19/2023 2:20 PM CDT Plan of Treatment Upcoming Encounters Date Type Department Care Team (Late st Contact Info) Description 08/29/2024 10:00 AM CDT Office Visit [facility] Health Weight Management Services [address] [facility] [address] [facility] [address] [place] [address] Nicol Cintron, COLLEGE PHYSICS INSTRUCTOR-WOOL GRADER [address] [facility] [address] [place] [address] Health Maintenance Due Date Last Done Comments COLOGUARD (AGES 45-75) - COLON CA SCREENING 1967 COLON MONITORING 1967 COLONOSCOPY - COLON CA SCREENING 1967 CT COLONOGRAPHY - COLON CA SCREENING 1967 Colorectal Cancer Screening 1967 FIT - COLON CA SCREENING 1967 FLEX SIG - COLON CA SCREENING 1967 LIPID TESTING 1967 PAP SMEAR 1967 HIV SCREENING 11/30/1982 HEPATITIS C SCREENING 11/26/1985 DTAP/TDAP/TD VACCINES (1 - Tdap) 11/30/1986 HEPATITIS B VACCINE (1 of 3 - 19+ 3-dose series) 11/30/1986 PNEUMOCOCCAL VACCINE 50+ (1 of 1 - PCV) 11/30/2017 ZOSTER VACCINE (1 of 2) 11/30/2017 MAMMOGRAM 04/11/2020 04/11/2018, 11/17, 12/26/2011 COVID-19 VACCINE ( - season) 2024 INFLUENZA VACCINE (#1) 2024 DEPRESSION SCREENING 06/19/2024 SCREENING FOR DIABETES 08/28/2026 , 07/31/2019, 01/31/2019, Additional history exists HIB VACCINE Aged Out No longer eligi ble based on patient's age to complete this topic HPV VACCINE Aged Out No longer eligi ble based on patient's age to complete this topic MENINGOCOCCAL (Group B) VACCINE SHARED DECISION-MAKING Aged Out No longer eligible based on patient's age to complete this topic MENINGOCOCCAL GROUPS A/C/Y/W VACCINE Aged Out No longer eligible based on patient's age to complete this topic Procedures Procedure Name Priority Date/Time Associated Diagnosis Comments COMPREHENSIVE METABOLIC PANEL Routine 08/29/2023 12:25 PM CDT Morbid obesity (HCC) Bariatric surgery status Vitamin deficiency Vitamin D deficiency Postsurgical malabsorption (HCC) from Last 3 Months or Most Recently Relevant to Health Maintenance Results * COMPREHENSIVE METABOLIC PANEL (08/29/2023 12:25 PM CDT) Glucose 90 70 - 99 mg/dL [facility] [...] Agency Comment Lab Testing performed at: [facility] [address] [facility] [phone] Nicol Cintron COLLEGE PHYSICS INSTRUCTOR-WOOL GRADER LAB - CHEMIS TRY ORDERABLES [facility] ACCOUNT BILL [address] [place] [address] from Last 3 Months or Most Recently Relevant to Health Maintenance Advance Directives * Full Code (Latest Code Status on File) Date Activated Date Inactivated Comments 01/30/2019 3:02 PM 01/31/2019 4:52 PM Care Teams Shuttle Driver Relationship Specialty Start Date End Date Elio Fleming MD PCP - General 09/26/12
--- OUTSIDE RECORDS SUMMARY | 2024-08-29 07:40 | XMS_ITS | Encounter Summary ---
Author Organization [employer] [facility] Address [address] [place] [address] Care Team Providers Care Aircraft Sales Representative Name Role Phone Nathanael Dale MD Primary Care Provider Encounter Details Date Type Department Care Team (Late st Contact Info) Description 05/06/1999 Outpatient Historical HIS MD Bi FREEMAN Jorge A, MD [address] [place] [address] [address] [place] [address] Social History Tobacco Use Types Packs/Day Years Used Date Smoking Tobacco: Never Assessed Comments Unknown Sex and Gender Information Value Date Recorded Sex Assigned at Not on file Legal Sex Female 4:26 AM ENGINEERING TEST SPECIALIST Gender Identity Not on file Sexual Orientation Not on file documented as of this encounter Plan of Treatment Not on file documented as of this encounter Visit Diagnoses Not on filedocumented in this encounter Care Teams Aircraft Sales Representative Relationship Specialty Start Date End Date Nathanael Dale MD PCP - General 05/01/09 documented as of this encounter
--- OUTSIDE RECORDS SUMMARY | 2024-08-29 07:40 | XMS_ITS | Data Portability ---
Author Organization [facility] [employer], Main Office Address [address] [place] [address] Assessment Encounter Date Assessment Date Assessment LastModified by Organization Details LastModified Time 10/13/2022 10/13/2022 This note is dictated and transcribed by [employer]. Security Assessor variances may occur. Despite proofreading, typographical errors may occur. Not available 10/13/2022 17:31:56 11/10/2022 11/10/2022 This note is dictated and transcribed by [employer]. Security Assessor variances may occur. Despite proofreading, typographical errors may occur. Not available 11/10/2022 10:31:22 Plan of Treatment Reminders Order Date Submit Date Provider Last Modified By Organization Details Last Modified Time Details Appointments None recorded. Lab CBC w/ auto diff [address] (Lab), [address] [place], [address], 17:12:39 BMP, serum or plasma [address] (Lab), [address] [place], [address], 17:16:40 magnesium, serum or plasma 2022 023 [facility] (Lab), [address] [place], [address], 3 09:54:49 TSH, serum or plasma [address] (Lab), [address] [place], [address], 3 13:24:55 T4, free, serum [address] (Lab), [address] [place], [address], 3 13:26:10 glycohemogl obin, total, blood [address] (Lab), [address] [place], [address], 3 11:12:44 vitamin B12, serum [address] (Lab), [address] [place], [address], 3 17:35:43 folate, serum [address] (Lab), [address] [place], [address], 3 11:12:20 Referral cardiologis t referral 2022 023 [facility] Referral Fax Line, [address], [address], [place], [address], 3 16:32:24 Procedures None recorded. Surgeries None recorded. Imaging XR, foot, 3 or more view 2022 023 [email or web address] 7 [facility] [place], [address], [place], [address], 3 10:33:11 XR, foot, 3 or more view 2022 023 cheko 7 [facility] [place], [address], [place], [address], 3 17:32:06 XR, toe(s) - injured right great toe 2022 023 CAMILO Not available 17:11:59 Medication Orders bupropion HCl XL 300 mg 24 hr tablet, extended release 2023 024 [id number], [address] [place], [place], [id number], 4 10:57:10 bupropion HCl XL 150 mg 24 hr tablet, extended release 2023 024 [facility] #[id number], [address], [place], [id number], 4 11:23:25 Patient TargetsNo targets recorded. Patient InstructionsNo instructions recorded. Reason for Referral Hearing Specialist Referral for Ta ycardia Referring Physician: Eloisa Hauser, Family Medicine, Encounter Date: 09/21/2022 Results Created Date Observation Date Name Description Value Unit Range Abnormal Flag Note LastModifiedBy Organization Detail LastModifiedTime 09/25/1909/24/2022 BASIC METAB OLIC PANEL glucose 87 mg/dL 65-99 normal Fasti ng refer ence inter kenneth Not Available [facility] [address] [place], [address], 09/24/2022 02:42:29 09/25/19 23 09/24/2022 BASIC METAB OLIC PANEL urea nitrogen (BUN) 11 mg/dL 7-25 normal Not Available [facility] [address] [place], [address], 09/24/2022 02:42:29 09/25/19 23 09/24/2022 BASIC METAB OLIC PANEL creatinine 0.94 mg/dL 0.50-1 .03 normal Not Available [address], [address], 09/24/2022 02:42:29 09/25/19 23 09/24/2022 BASIC METAB OLIC PANEL eGFR 72 mL/mi n/1.7 3m2 > or = 60 normal The eGFR is based on the CKD-E PI 2020 equat ion. To calcu late the new eGFR from a previ ous Creat inine or Cysta tin C resul t, go to https :[email or web address] ofess [email or web address] [email or web address] /[email or web address] 5Fcal culat or Not Available [address], [address], 09/24/2022 02:42:29 09/25/19 23 09/24/2022 BASIC METAB OLIC PANEL BUN/creatini ne ratio NOT APPLIC ABLE (calc ) 6-22 Not Available [address], [address], 09/24/2022 02:42:29 09/25/19 23 09/24/2022 BASIC METAB OLIC PANEL sodium 142 mmol/ L 135-14 6 normal Not Available [address], [address], 09/24/2022 02:42:29 09/25/19 23 09/24/2022 BASIC METAB OLIC PANEL potassium 4.4 mmol/ L 3.5-5. 3 normal Not Available [address], [address], 09/24/2022 02:42:29 09/25/19 23 09/24/2022 BASIC METAB OLIC PANEL chloride 108 mmol/ L 98-110 normal Not Available [address], [address], 09/24/2022 02:42:29 09/25/19 23 09/24/2022 BASIC METAB OLIC PANEL carbon dioxide 27 mmol/ L 20-32 normal Not Available [address], [address], 09/24/2022 02:42:29 09/25/19 23 09/24/2022 BASIC METAB OLIC PANEL calcium 9.1 mg/dL 8.6-10 .4 normal Not Available [address], [address], 09/24/2022 02:42:29 09/25/19 23 09/24/2022 TSH TSH 2.57 mIU/L normal Refer ence Range > or = 20 Years 0.40- 4.50 Pregn andrew Range s First trime ster 0.26- 2.66 Secon d trime ster 0.55- 2.73 Third trime ster 0.43- 2.91 Not Available [address], [address], 09/24/2022 02:42:31 09/25/1909/24/2022 MAGNE SIUM magnesium 2.0 mg/dL 1.5-2. 5 normal Not Available [address], [address], 09/24/2022 02:42:35 09/25/19 23 09/24/2022 CBC (INCL UDES DIFF/ PLT) white blood cell count 5.5 thous and/u L 3.8-10 .8 normal Not Available [address], [address], 09/24/2022 02:42:36 09/25/19 23 09/24/2022 CBC (INCL UDES DIFF/ PLT) red blood cell count 4.21 ez on/uL 3.80-5 .10 normal Not Available [address], [address], 09/24/2022 02:42:36 09/25/19 23 09/24/2022 CBC (INCL UDES DIFF/ PLT) hemoglobin 12.6 g/dL 11.7-1 5.5 normal Not Available [address], [address], 09/24/2022 02:42:36 09/25/19 23 09/24/2022 CBC (INCL UDES DIFF/ PLT) hematocrit 39.6 % 35.0-4 5.0 normal Not Available [address], [address], 09/24/2022 02:42:36 09/25/19 23 09/24/2022 CBC (INCL UDES DIFF/ PLT) MCV 94.1 fL 80.0-1 00.0 normal Not Available [address], [address], 09/24/2022 02:42:36 09/25/19 23 09/24/2022 CBC (INCL UDES DIFF/ PLT) MCH 29.9 pg 27.0-3 3.0 normal Not Available [address], [address], 09/24/2022 02:42:36 09/25/19 23 09/24/2022 CBC (INCL UDES DIFF/ PLT) MCHC 31.8 g/dL 32.0-3 6.0 low Not Available [address], [address], 09/24/2022 02:42:36 09/25/19 23 09/24/2022 CBC (INCL UDES DIFF/ PLT) RDW 11.9 % 11.0-1 5.0 normal Not Available [address], [address], 09/24/2022 02:42:36 09/25/19 23 09/24/2022 CBC (INCL UDES DIFF/ PLT) platelet count 241 thous and/u L 140-40 0 normal Not Available [facility] [address], [address], 09/24/2022 02:42:36 09/25/19 23 09/24/2022 CBC (INCL UDES DIFF/ PLT) MPV 13.1 fL 7.5-12 .5 high Not Available [address], [address], 09/24/2022 02:42:36 09/25/19 23 09/24/2022 CBC (INCL UDES DIFF/ PLT) absolute neutrophils 3289 cells /uL 1500-7 800 normal Not Available [email or web address] Diagn[facility] [address], [address], 09/24/2022 02:42:36 09/25/19 23 09/24/2022 CBC (INCL UDES DIFF/ PLT) absolute lymphocytes 1573 cells /uL 850-39 00 normal Not Available [address], [address], 09/24/2022 02:42:36 09/25/19 23 09/24/2022 CBC (INCL UDES DIFF/ PLT) absolute monocytes 380 cells /uL 200-95 0 normal Not Available [address], [address], 09/24/2022 02:42:36 09/25/19 23 09/24/2022 CBC (INCL UDES DIFF/ PLT) absolute eosinophils 231 cells /uL 15-500 normal Not Available [address], [address], 09/24/2022 02:42:36 09/25/19 23 09/24/2022 CBC (INCL UDES DIFF/ PLT) absolute basophils 28 cells /uL 0-200 normal Not Available [address], [address], 09/24/2022 02:42:36 09/25/19 23 09/24/2022 CBC (INCL UDES DIFF/ PLT) neutrophils 59.8 % normal Not Available [facility] [address], [address], 09/24/2022 02:42:36 09/25/19 23 09/24/2022 CBC (INCL UDES DIFF/ PLT) lymphocytes 28.6 % normal Not Available [facility] [address], [address], 09/24/2022 02:42:36 09/25/19 23 09/24/2022 CBC (INCL UDES DIFF/ PLT) monocytes 6.9 % normal Not Available [facility] [address], [address], 09/24/2022 02:42:36 09/25/19 23 09/24/2022 CBC (INCL UDES DIFF/ PLT) eosinophils 4.2 % normal Not Available [address], [address], 09/24/2022 02:42:36 09/25/19 23 09/24/2022 CBC (INCL UDES DIFF/ PLT) basophils 0.5 % normal Not Available [address], [address], 09/24/2022 02:42:36 09/25/1909/24/2022 FOLAT E, SERUM folate, serum 12.8 NG/mL normal Refer ence Range Low: <3.4 Borde rline : 3.4-5 .4 Sydnee l: >5.4 Not Available [facility] [address], [address], 09/24/2022 02:42:37 09/25/19 23 09/24/2022 T4, FREE T4, free 1.1 NG/dL 0.8-1. 8 normal Not Available [facility] [address], [address], 09/24/2022 02:42:37 09/25/19 09/24/2022 VITAM IN B12 vitamin B12 421 pg/mL 200-11 00 normal Not Available [facility] [address] [place], [address], 09/24/2022 02:42:38 09/25/19 23 09/24/2022 HEMOG LOBIN A1C hemoglobin A1C 5.1 %_of_ total _HGB <5.7 normal For the purpo se of screchris garciag for the prese nce of diabe david: <5.7% Consi stent with the absen ce of diabe david 5.7-6 .4% Consi stent with incre ased risk for diabe david (pred iabet es) > or =6.5% Consi stent with diabe david This assay resul t is consi stent with a decre ased risk of diabe david. Curre ntly, no conse nsus exist s dayne ellis use of hemog lobin A1c for diagn osis of diabe david in child [place]. Accor ding to Ameri can Diabe david Assoc iatio n (ADA) guide lines , hemog lobin A1c <7.0% repre sents optim al contr ol in non-p regna nt diabe tic patie nts. Diffe rent metri cs may apply to speci fic patie nt popul ation s. Stand ards of Medic al Care in Diabe david(A DA). NO COLLE CTION DATE RECEI QUINN. WE HAVE USED THE DATE THE SPECI MEN WAS RECEI QUINN BY THIS LABOR ATORY THE COLLE CTION DATE. IF THIS IS INCOR RECT, PLEAS E CONTA CT CLIEN T SERVI KIRAN. PHONE NUMBE R: [phone] Not Available [facility] (Lab) [address], [place], [address], 09/24/2022 02:42:38 09/22/19 23 09/21/2022 XR, toe(s ) No observ ation record ed. [email or web address] [facility] [address], [place], [address], 09/22/2022 15:44:25 10/14/19 23 XR, foot, 3 or more view No observ ation record ed. [email or web address] [facility] [place] [address], [place], [address], 10/13/2022 17:31:44 10/25/19 23 10/21/2022 , echoc ardio gram No observ ation record ed. [facility] [address], [place], [address], 10/26/2022 11:27:09 11/11/19 23 XR, foot, 3 or more view No observ ation record ed. [email or web address] [facility] [place] [address], [place], [address], 11/10/2022 10:33:12 11/18/19 23 10/10/2022 cardi ac monit or No observ ation record ed. [email or web address] [facility] [address], [place], [address], 11/21/2022 09:24:42 Result Notes None recorded. Problems Name Problem SNOMED Code Status Onset Date Resolution Date Notes Provider Name and Address Organization Details Recorded Time Mixed anxiety and depressive disorder 411884862 Active 2021 Not Available [facility] 3 00:58:10 Hypothyroidis m 55318625 Active 2021 Not Available [facility] 3 00:58:10 Tachycardia 4632603 Active 2022 Eloisa Hauser MD [address], [facility] [address], [place], [address] , [facility] [employer] [facility] [employer] 3 13:02:11 Cobalamin deficiency 461929050 Active 2022 Eloisa Hauser MD [address], [facility] [address], [place], [address] , [facility] [employer] [facility] [employer] [facility] 3 13:06:51 Hypoglycemia 873413008 Active 2022 Eloisa Hauser MD [address], [place] [address], [place], [address] , [facility] [employer] [facility] 3 13:10:35 Injury of great toe 330364667 Active 2022 Eloisa Hauser MD [address] [address], [place], [address] , [facility] [employer] [facility] 3 13:14:59 Fracture of great toe 857782495 Active 2022 Eloisa Hauser MD [address], [place] [address], [place], [address] , [facility] [employer] [facility] 3 13:24:01 Closed fracture of distal phalanx of great toe 448543052 Active 2022 Tex Williamson DPM [address], [address], [address] , [facility] [employer] [facility] 3 17:30:18 Acute sinusitis 26909894 Active 2023 Eloisa Hauser MD [address], [address] [place] [address], [place], [address] , [facility] [employer] [facility] 4 16:36:26 Problem Notes None recorded. Procedures Surgical History Date Name Laterality Status Provider Name and Address Organization Details Recorded Time Eye Surgery completed Radha Raza A [facility] [employer] [facility] 10/13/2022 16:21:48 Breast Biopsy completed Radha [facility] [employer] [facility] 10/13/2022 16:21:59 bypass of stomach completed Radha Jose [facility] [employer] [facility] 10/13/2022 16:22:18 Imaging Results Imaging Date Name Status LastModified by Organization Details LastModified Time 09/21/2022 XR, toe(s) completed [email or web address], [place], [address], 09/22/2022 15:44:25 10/13/2022 XR, foot, 3 or more view completed [email or web address] [facility] [place] [address], [place], [address], 10/13/2022 17:31:44 10/21/2022 US, echocardiogram completed [email or web address] [facility] [address], [place], [address], 10/26/2022 11:27:09 11/10/2022 XR, foot, 3 or more view completed [email or web address] [facility] [place] [address], [place], [address], 11/10/2022 10:33:12 10/10/2022 furrier designer completed [email or web address] [facility] [address], [place], [address], 11/21/2022 09:24:42 Procedure Notes None recorded. Medical Equipment None Reported. Allergies Allergen ID Allergen Name Allergen Category Reaction Reaction Severity Criticality Documentation Date Start Date Code Code System Note Provider Name and Address Organization Details Recorded Time 03017 Product containin g penicilli n (product) medicatio n hives Not available Not available 08/18/2022 74050 8001 SNOMED Not Available [facility] 00:59:37 Medications Name Sig Start Date Stop Date Status Note LastModified by Organization Details LastModified Time lancets ultra thin 30g misc active Not Available Not Available Not Available azithromyci n 250 mg tablet TAKE 2 TABLETS BY MOUTH FOR 1 DAY THEN TAKE 1 TABLET BY MOUTH FOR 4 DAYS 08/24 completed Not Available Not Available Not Available clobetasol 0.05 % topical cream APPLY EXTERNALL Y TO VULVAR AREA EVERY WEEK FOR 8 WEEKS 11/22 completed Not Available Not Available Not Available acetaminoph en 300 mg-codeine 30 mg tablet TAKE 1 TABLET BY MOUTH EVERY 6 HOURS NEEDED FOR DENTAL PAIN 08/24 completed Not Available Not Available Not Available levothyroxi ne 75 mcg tablet TAKE 1 TABLET BY MOUTH EVERY DAY active Not Available Not Available No t Available levothyroxi ne 88 mcg tablet TAKE 1 TABLET BY MOUTH EVERY DAY active Not Available Not Available No t Available cyanocobala min (vit B-12) 1,000 mcg/mL injection solution INJECT 1 ML EVERY WEEK active Not Available Not Available No t Available BD Luer-Ludmila Syringe 3 mL 25 gauge x 1 USE DIRECTED EVERY 7 DAYS 11/22 completed Not Available Not Available Not Available hydroxyzine HCl 25 mg tablet TAKE 1 TABLET BY MOUTH EVERY 6 HOURS NEEDED 08/24 completed Not Available Not Available Not Available ergocalcife rol (vitamin D2) 1,250 mcg (50,000 unit) capsule TAKE 1 CAPSULE BY MOUTH EVERY 7 DAYS active Not Available Not Available No t Available clobetasol 0.05 % topical ointment APPLY TOPICALLY TO THE EXTERNAL VULVAR AREA TWICE DAILY FOR UP TO 14 DAYS AT A TIME active Not Available Not Available No t Available escitalopra m 20 mg tablet TAKE 1 TABLET BY MOUTH EVERY DAY active Not Available Not Available No t Available bupropion HCl XL 300 mg 24 hr tablet, extended release TAKE 1 TABLET BY MOUTH EVERY DAY active Not Available Not Available No t Available bupropion HCl XL 150 mg 24 hr tablet, extended release TAKE 1 TABLET BY MOUTH EVERY DAY 2023 active Not Available Not Available Not Avai lable nitrofurant oin monohydrate /macrocryst als 100 mg capsule TAKE 1 CAPSULE BY MOUTH TWICE DAILY 08/24 completed Not Available Not Available Not Available BD Integra Syringe 3 mL 23 gauge x 1 USE ONCE A WEEK active Not Available Not Available No t Available chlorhexidi ne gluconate 0.12 % mouthwash FOLLOWER PACKAGE DIRECTION S AND RINSE 2 TO 3 TIMES DAILY AND SPIT 08/24 completed Not Available Not Available Not Available Ultra Thin Lancets 30 gauge TEST BLOOD SUGAR ONCE DAILY active Not Available Not Available No t Available True Metrix Glucose Test Strip TEST ONCE DAILY active Not Available Not Available No t Available True Metrix Glucose Meter USE TO TEST ONCE DAILY active Not Available Not Available No t Available Imvexxy Maintenance Pack 10 mcg vaginal insert 11/22 completed Not Available Not Available Not Available Vitals Date Recorded Body height Body mass index (BMI) Body weight Body temperature Heart rate Oxygen saturation Oxygen saturation in Arterial blood by Pulse oximetry Systolic blood pressure Diastolic blood pressure Provider Name and Address Organization Details Last Updated DateTime 3 167.64 cm 31.5 kg/m2 64070.5 1 g 97.9 [degF] 55 /min 100 % 100 % 124 mm[Hg] 86 mm[Hg] Garret Borjas CMA CT [employer] [facility] [employer] [facility] 3 12:47:41 Date Recorded Body height Body mass index (BMI) Body weight Heart rate Respiratory rate Oxygen saturation Oxygen saturation in Arterial blood by Pulse oximetry Systolic blood pressure Diastolic blood pressure Provider Name and Address Organization Details Last Updated DateTime 3 167.64 cm 31.5 kg/m2 64258.5 1 g 63 /min 14 /min 99 % 99 % 115 mm[Hg] 68 mm[Hg] Radha Jose [employer] [facility] [employer] 3 16:29:03 Date Recorded Body height Body mass index (BMI) Body weight Heart rate Respiratory rate Oxygen saturation Oxygen saturation in Arterial blood by Pulse oximetry Systolic blood pressure Diastolic blood pressure Provider Name and Address Organization Details Last Updated DateTime 3 167.64 cm 31.5 kg/m2 53704.5 1 g 74 /min 14 /min 98 % 98 % 116 mm[Hg] 71 mm[Hg] Radha Jose [employer] [facility] 3 09:51:37 Date Recorded Body height Body mass index (BMI) Body weight Body temperature Oxygen saturation Oxygen saturation in Arterial blood by Pulse oximetry Heart rate Systolic blood pressure Diastolic blood pressure Provider Name and Address Organization Details Last Updated DateTime 4 167.64 cm 33.2 kg/m2 00360.2 4 g 96.8 [degF] 98 % 98 % 70 /min 110 mm[Hg] 76 mm[Hg] Mary Harden RN [facility] [employer] 4 11:02:58 Date Recorded Body height Body mass index (BMI) Body weight Body temperature Heart rate Oxygen saturation Oxygen saturation in Arterial blood by Pulse oximetry Systolic blood pressure Diastolic blood pressure Provider Name and Address Organization Details Last Updated DateTime 4 167.64 cm 33.4 kg/m2 81631.6 2 g 97.7 [degF] 59 /min 97 % 97 % 116 mm[Hg] 78 mm[Hg] Matthieu Zhang RN [facility] [employer] [facility] 4 10:46:50 Social History Question Answer Notes LastModified by [employer] Details LastModified Time Tobacco Smoking Status Former Smoker smoked for 4 years, quit age 32 Not Available [facility] 08/18/2022 00:57:11 What Is Your Level Of Alcohol Consumption? Occasional [id number] Information not available 08/18/2022 What Is Your Level Of Caffeine Consumption? Moderate [id number].[id number] Information not available 08/18/2022 In The 14 Days Before Symptom Onset, Have You Had Close Contact With A Laboratory-confir med COVID-19 While That Case Was Ill? No MIGRATION.[id number] Information not available 08/18/2022 In The 14 Days Before Symptom Onset, Have You Had Close Contact With A Person Who Is Under Investigation For COVID-19 While That Person Was Ill? No MIGRATION.[id number] Information not available 08/18/2022 What Type Of Diet Are You Following? REGULAR [id number].[id number] [id number] Information not available 08/18/2022 What Was The Date Of Your Most Recent Tobacco Screening? 10/13/2022 [email or web address] Information not available 10/13/2022 Have You Ever Been Counseled For Unhealthy Alcohol Use? No MIGRATION.48662 [id number] Information not available 08/18/2022 Do You Use Any Illicit Or Recreational Drugs? No MIGRATION.60493 91771 Information not available 08/18/2022 Has Tobacco Cessation Counseling Been Provided? No MIGRATION.82905 [id number] Information not available 08/18/2022 Have You Recently Traveled Abroad? No MIGRATION.39336 [id number] Information not available 08/18/2022 Do You Have Any Dietary Restrictions? No MIGRATION.58100 [id number] Information not available 08/18/2022 Do You Or Have You Ever Used Any Other Forms Of Tobacco Or Nicotine? No MIGRATION.52040 09305 Information not available 08/18/2022 Sex: Unknown Functional Status Question Answer Note LastModified by [email or web address] Details LastModified Time What is your exercise level? Occasional [id number] Information not available 08/18/2022 Mental Status None recorded. Family History Relationship Description Onset Age of this Age Resolved Age Notes LastModified by Organization Details LastModified Time Mother Malignant tumor of breast [id number] Not available 08/18/2022 00:57:24 Mother Malignant tumor of ovary [id number] Not available 08/18/2022 00:57:24 Medical History Condition Response THYROID DISEASE Y ALLERGIES/HAYFEVER Y DEPRESSION (INCLUDING POST ) Y Gynecological HistoryNo gynecological history recorded. Obstetrics History GPAL:G 0 P 0 0 0 0 Past Encounters Encounter ID Performer Location Encounter Start Date Encounter Closed Date Diagnosis/Indication Diagnosis SNOMED-CT Code Diagnosis ICD10 Code Diagnosis Note [id number] [facility] Primary Care [facility] [address] [place] [address] 11/22/2021 00:00:00 11/22/2021 09:31:27 [id number] Eloisa Hauser MD [facility] Primary Care [facility] [address] [place] [address] 09/21/2022 12:38:31 09/21/2022 13:55:53 Tachycardia 3509719 R00.0 ? dumping or reactive hypoglycem ia Hypothyroidism 89734005 E03.9 Cobalamin deficiency 190 201985 E53.8 Hypoglycemia 897340959 E 16.2 Injury of great toe 2827 81601 S99.921A [id number] Tex Williamson DPM [facility] Pod[facility] [place] [address] [place] [address] 10/13/2022 16:19:42 10/14/2022 15:43:14 Closed fracture of distal phalanx of great toe 068183117 S92.424A Minimal weight-satish ring the next 4 weeksquest ionable fracture head proximal phalanx avulsionDi spensed postop shoeRice therapyfol low-up 4 weeks for x-rays [id number] Tex Williamson DPM [facility] [place] [address] [place] [address] 11/10/2022 09:46:39 11/10/2022 10:53:14 Closed fracture of distal phalanx of great toe 009903426 S92.424A Minimal weight-satish ring the next 4 weeks - repeat x-rays today shows healing of the fractureDi spensed postop shoeRice therapyfol low-up 4 weeks for x-rays [id number] Eloisa Hauser MD [facility] Primary Care [facility] [address] [facility] [facility] [place] [address] 08/25/2023 10:39:46 08/25/2023 11:30:56 Mixed anxiety and depressive disorder [id number] F41.8 decrease escitalopr am to 20add bupropion xl 150 mgf/u in 4-6 weeks [id number] Eloisa Hauser MD [facility] Primary Care [facility] [address] [place] [address] 10/11/2023 10:40:26 10/11/2023 10:58:27 Mixed anxiety and depressive disorder [id number] F41.8 decrease escitalopr am to 20add bupropion xl 150 mgf/u in 4-6 weeks update 10/11/23: improving but not yet to baselinein crease bupropion xl 300 mg and continue escitalopr am 20 mg dailyre-re viewed potential med s/e, d/c and be seen if any si/hi or s/s serotonin syndromef/ u by portal in 2-3 weeks and in person in 6 months Health Concerns Section Related Observation LastModified by Organization Detai ls LastModified Time None Recorded Concern Status LastModified by Organization Details LastModified Time None Recorded Advance Directives Directive None Recorded Payers Encounter Date Sequence Insurance Name Policy Number Policy Avilez Covered Member ID Avilez Member ID Guarantor Name 09/21/2022 1 [facility] [id number] Meir Perera [id number] Jessica Perera 10/13/2022 1 [facility] [id number] Meir Perera [id number] Jessica Perera 11/10/2022 1 [facility] [id number] Meir Perera [id number] Jessica Perera 08/25/2023 1 [facility] [id number] Meir Perera [id number] Jessica Perera 10/11/2023 1 [facility] [id number] Meir Perera [id number] Jessica Perera Notes Date Note Type Note Provider Name and Address Organization Details Recorded Time 09/21/2022 text/html Here with concer n about her heart rate. About 3 week ago, she had a frightening incident (had 1 episode similar to this about a year ago). She was at rest sitting down and suddenly felt out of breath, heart rate went up to 180s and stayed there for 15-20 minutes. She had call ambulance. It was in 150s when EMS arrived. By the time they left, it had come back down to normal. She was feeling better and EKG was reportedly normal. The incident the year prior she was in an airport coming home from [facility] and had ordered a sugary strawberry dauquiri. The current episode she had had a slice of cheese cake and zero sugar soda with vodka. She did feel very nauseated, no visual disturbance, no tremor, +sweating. She did feel sob. No sense of skipping beats, she has had skipped beats before and was worked up by cardiology and told it was ok. EKG was fast but regular. Since then, she has felt well, no fatigue, no decreased exercise endurance, no current nausea/vomiting. She has had orange juice the past few days which is unusual for her and feels she could lay down and sleep the day away and hour later. slipped and injured right great toe on Monday, swollen, throbbing since then Eloisa Hauser MD [address], [facility] [address], [place], [address], [place] 10/14/2022 17:40:42 10/13/2022 text/html . Patient is a 56-year-old female who presents to the office after about 1 week after she injured her great toe right foot. Patient states that she was in [place] and stubbed her toe when walking to the bathroom. Patient states that she had swelling immediate pain and bruising to the toe. Patient states that she has continued wearing normal shoe gear since the injury. Patient states she has mild pain to the toe. Patient states she has increased pain when she goes up on her toes. Patient denies any other pedal complaints. Tex Williamson DPM [address], [address], [place], [address], [place] 10/14/2022 14:17:04 11/10/2022 text/html . Patient is a 56-year-old female who returns the office for follow-up on fracture of the distal phalanx right great toe. Patient had repeat x-rays today which show some healing. Patient states she continues have some mild pain of the toe but states that she is tired of wearing the boot. Patient states she would like to return to normal shoe gear. I discussed that this is in okay possibility but if she were to injure the toe it could worsen the fracture area. Patient denies any other pedal complaints. Tex Williamson DPM [address], [address], [place], [address], [place] 11/10/2022 10:33:29 08/25/2023 text/html She increased escitalopram to 30 mg on 08/16/23 because she had poor motivation, hard to get out of bad, energy down, increased anxiety which has led to leaving work because she thought she might have panic attack. Feels down/sad, +irritability, +anxiety. Sleep is not good, wakes through the night and hard to turn mind off. has had some mild improvement has appt with bariatric surgeon today Eloisa Hauser MD [address], [address], [place], [address], [place] 09/13/2023 07:40:49 10/11/2023 text/html She increased escitalopram to 30 mg on 08/16/23 because she had poor motivation, hard to get out of bad, energy down, increased anxiety which has led to leaving work because she thought she might have panic attack. Feels down/sad, +irritability, +anxiety. Sleep is not good, wakes through the night and hard to turn mind off. has had some mild improvement has appt with bariatric surgeon today update 10/11/23: has noticed improvement with bupropion, but feels dosage could increase a bit. No med s/e. Eloisa Hauser MD [address], [address], [place], [address], [place] 10/15/2023 13:06:03 OBGyn Episode No OBEpisode recorded.
--- OUTSIDE RECORDS SUMMARY | 2024-08-29 07:40 | XMS_ITS | Referral Summary ---
Author Organization [facility] Address [address] [place] [address] Care Team Providers Care Art Gallery Internship Name Role Phone Elio Fleming MD Primary Care Provider Unav ailable Source Comments [facility],non-owned Affiliates and Associated Physician Practices is amultiple site organization consisting of ambulatory clinics and hospital sitesin [place], [place], [place] and [place]. This disclosure is being madepursuant to the Care Everywhere program and may not contain all information available regarding this patient. Last updated 18.[facility] Allergies Active Allergy Reactions Criticality Noted Date [...] Active vitamin D, ergocalciferol, (ISDOL) 1.25 MG (89905 UT) capsuleIndications:V itamin D deficiency,Increased PTH level Take 1 capsule by mouth every 7 days 12 capsule 09/12/2019 Active buPROPion XL 24hr (Wellbutrin-XL) 150 MG tablet Take 1 tablet every day by oral route. 08/25/2023 Active vitamin D, ergocalciferol, (Drisdol) 1.25 MG (62284 UT) capsule Take 1 (one) capsule by [...] Mass Index 33.95 09/19/2023 2:20 PM CDT Functional Status Functional Status Response Date of Assess ment Is person deaf or have serious hearing difficult y? No 01/30/2019 Is person blind or have serious difficulty seein g? No 01/30/2019 Does person have serious dif ficulty walking/climbing stairs? No 01/30/2019 Does person have difficulty dressing/bathing? No 01/30/2019 Does person have difficulty doing errands alone? No 01/30/2019 Cognitive Status Response Date of Assessm ent Does person have difficulty concentrating/remembering/making decisions? No 01/30/2019 Plan of Treatment Upcoming Encounters Date Type Department Care Team (Late st Contact Info) Description 08/29/2024 10:00 AM CDT Office Visit [facility] [address], [address] [place] [address] Nicol Cintron APRN-RECRUITING CONSULTANT [address] [place] [address] Procedures Procedure Name Priority Date/Time Associated Diagnosis [...] Agency Comment Lab Testing performed at: [facility] [address] [facility] [id number] Nicol Cintron VIDEO CAMERA OPERATOR-RECRUITING CONSULTANT LAB - CHEMIS TRY ORDERABLES [facility] ACCOUNT BILL [address] [place] [address] from Last 3 Months or Most Recently Relevant to Health Maintenance Advance Directives * Full Code (Latest Code Status on File) Date Activated Date Inactivated Comments 01/30/2019 3:02 PM 01/31/2019 4:52 PM Care Teams Art Gallery Internship Relationship Specialty Start Date End Date Elio Fleming MD PCP - General 09/26/12
--- OUTSIDE RECORDS SUMMARY | 2024-08-29 07:40 | XMS_ITS | Referral Summary ---
Author Organization [facility] Address [address] [place] [address] Care Team Providers Care Yarn Salvager Name Role Phone Elio Fleming MD Primary Care Provider [phone] Allergies Active Allergy Reactions Criticality Noted Date Comments Penicillins Hives,Rash Medium 09/26/2012 Medications levothyroxine (SYNTHROID, LEVOTHROID) 88 mcg tablet Take 88 mcg by mouth medical office asst before breakfast Active escitalopram (LEXAPRO) 20 mg [...] (10/18/2018): Left breast biopsy 04-07-2008, fibrocystic change Social History Tobacco Use Types Packs/Day Years Used Date Smoking Tobacco: Former Cigarettes 0.3 10 1 989 - 1998 Smokeless Tobacco: Never Tobacco Cessation:Counseling Given: No Personal Safety Answer Date Recorded Getting School Help Needed Not on file 09/01 Comments Unknown Sex and Gender Information Value Date Recorded Sex Assigned at Not on file Legal Sex Female 1:14 AM LOG 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
--- OUTSIDE RECORDS SUMMARY | 2024-08-29 07:40 | XMS_ITS | Encounter Summary ---
Author Organization [employer] Address 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
--- OUTSIDE RECORDS SUMMARY | 2024-08-29 07:40 | XMS_ITS | Encounter Summary ---
Author Organization [employer] Address [address] [place] [address] Care Team Providers Care Technical Writer And Editor Name Role Phone Nathanael Dale MD Primary Care Provider Encounter Details Date Type Department Care Team (Latest Contact Info) Description 04/22/2000 Inpatient Historical HIS PATIENT IN A BED Nathanael Dale MD [address] [facility] [address] [place] [address] Forceps or vacuum extractor delivery without mention of indication, delivered, with or without mention of antepartum condition (Primary Dx) Social History Tobacco Use Types Packs/Day Years Used Date Smoking Tobacco: Never Assessed Comments Unknown Sex and Gender Information Value Date Recorded Sex Assigned at Not on file Legal Sex Female 4:26 AM PLASTICS BENCH MECHANIC Gender Identity Not on file Sexual Orientation Not on file documented as of this encounter Plan of Treatment Not on file documented as of this encounter Visit Diagnoses Diagnosis Forceps or vacuum extractor delivery without mention of indication, delivered, with or without mention of antepartum condition- Primary documented in this encounter Care Teams Technical Writer And Editor Relationship Specialty Start Date End Date Nathanael Dale MD PCP - General 05/01/09 documented as of this encounter
--- OUTSIDE RECORDS SUMMARY | 2024-08-29 07:40 | XMS_ITS | Encounter Summary ---
Author Organization [employer] Address [address] [place] [address] Care Team Providers Care Radiographer Technologist Name Role Phone Nathanael Dale MD Primary Care Provider Encounter Details Date Type Department Care Team (Latest Contact Info) Description 03/20/2000 Outpatient Historical [facility] Nathanael Dale MD [address] [place] [phone] Twin , antepartum (Primary Dx) Social History Tobacco Use Types Packs/Day Years Used Date Smoking Tobacco: Never Assessed Comments Unknown Sex and Gender Information Value Date Recorded Sex Assigned at Not on file Legal Sex Female 4:26 AM CAREER DEVELOPMENT MANAGER Gender Identity Not on file Sexual Orientation Not on file documented as of this encounter Plan of Treatment Not on file documented as of this encounter Visit Diagnoses Diagnosis Twin , antepartum- Primary documented in this encounter Care Teams Radiographer Technologist Relationship Specialty Start Date End Date Nathanael Dale MD PCP - General 05/01/09 documented as of this encounter
--- OUTSIDE RECORDS SUMMARY | 2024-08-29 07:40 | XMS_ITS | Clinical Summary ---
Author Organization [facility] Address [address] [place] [address] Care Team Providers Care Information Technology Architect Name Role Phone Unavailable Primary Care Provider Unavailabl e Social History Tobacco Use Types Packs/Day Years Used Date Smoking Tobacco: Never Assessed Comments Unknown Sex and Gender Information Value Date Recorded Sex Assigned at Not on file Legal Sex Female 7:54 PM CDT Gender Identity Not on file Sexual Orientation Not on file Plan of Treatment Health Maintenance Due Date Last Done Comments Colorectal Cancer Screening Colonoscopy (10 Years) 1967 Annual Physical 11/30/1970 Hepatitis C 11/30/1985 DTaP, Tdap and Td Vaccines (1 - Tdap) 11/30/1986 Hepatitis B Vaccines (1 of 3 - 19+ 3-dose series) 11/30/1986 Zoster Vaccines (1 of 2) 11/30/2017 Mammogram Screening 04/11/2020 04/11/2018, 6 Cervical Cancer Screening Pap Smear (Age 30 to 64) Every 3 Years 10/26/2020 10/26/2017, 10/15/2015, 02/02/1999, Additional history exists Cervical Cancer Screening Pap with HPV Testing (Age 30 to 64) Every 5 Years 10/21/2021 10/21/2016 Cervical Cancer Screening with HPV 10/21/2021 COVID-19 Vaccine ( season) 2024 Influenza Adult (#1) 2024 Meningococcal B Vaccine Aged Out No l onger eligible based on patient's age to complete this topic Meningococcal Vaccine Aged Out No phuc adriana eligible based on patient's age to complete this topic Pneumococcal Vaccine: Pediatrics (0 to 5 Years) and At-Risk Patients (6 to 64 Years) Aged Out No longer eligible based on patient's age to complete this topic RSV Immunizations Under 20 Months Aged Out No longer eligible based on patient's age to complete this topic Procedures Procedure Name Priority Date/Time Associated Diagnosis Comments MAMMOGRAM GENERIC (SCAN ORDER) 04/11/2018 OUTSIDE CYTOPATH CERV/VAG INTERPRET (PAP) (SCAN ORDER) 10/26/2017 OUTSIDE CYTOPATH CERV/VAG INTERPRET (PAP) 10/21/2016 from Last 3 Months or Most Recently Relevant to Health Maintenance Results * MAMMOGRAM GENERIC (04/11/2018) Anatomical Region Laterality Modality Other 04/11/2018 Narrative 04/11/2018 Ordered by an unspecified provider. us Documents Scanned SCANNING Final Result * OUTSIDE CYTOPATH CERV/VAG INTERPRET (PAP) (10/26/2017) 10/26/2017 Narrative 10/26/2017 Ordered by an unspecified provider. us Documents Scanned SCANNING Final Result * OUTSIDE CYTOPATH VAG/CERV PAP WITH HPV (10/21/2016) 10/21/2016 Narrative 10/21/2016 Ordered by an unspecified provider. us Documents Scanned SCANNING Final Result from Last 3 Months or Most Recently Relevant to Health Maintenance
--- OUTSIDE RECORDS SUMMARY | 2024-08-29 07:40 | XMS_ITS | Encounter Summary ---
Author Organization [facility] Address [address] [place] [address] Care Team Providers Care Guard Range Name Role Phone Nathanael Dale MD Primary Care Provider Encounter Details Date Type Department Care Team (Latest Contact Info) Description 02/17/2000 Outpatient Historical [facility] Nathanael Dale MD [address] [facility] [address] [place] [phone] Twin , antepartum (Primary Dx) Social History Tobacco Use Types Packs/Day Years Used Date Smoking Tobacco: Never Assessed Comments Unknown Sex and Gender Information Value Date Recorded Sex Assigned at Not on file Legal Sex Female 4:26 AM DIRECTOR OF FRONT OFFICE Gender Identity Not on file Sexual Orientation Not on file documented as of this encounter Plan of Treatment Not on file documented as of this encounter Visit Diagnoses Diagnosis Twin , antepartum- Primary documented in this encounter Care Teams Guard Range Relationship Specialty Start Date End Date Nathanael Dale MD PCP - General 05/01/09 documented as of this encounter
== END 2024-08-29 07:36 | disposition home or self-care (01) ==
PROVIDERS: Visit Provider Nurse Practitioner
DX: Z12.31 Encounter for screening mammogram for malignant neoplasm of breast (principal)
CPT/HCPCS: 77063; 77067

== ENCOUNTER 2025-03-15 02:45 | Emergency (ER) | payer OTHER, SELFPAY ==
[2025-03-15] VITALS (21 sets, daily range): BP systolic 104–142; BP diastolic 62–75; PULSE 56–69; RESP 9–16; TEMP 36.9; O2SAT 94–99
--- NOTE | ~2025-03-15 | XR_ITS ---
Examination: XR chest 2V Clinical History: CHEST PAIN Comparison: None Technique: PA and Lateral Findings: Cardiomediastinal silhouette normal size and configuration. Lungs clear. No acute bony abnormality. IMPRESSION: 1. No acute cardiopulmonary findings. Reviewed, dictated and finalized at location R.
--- OUTSIDE RECORDS SUMMARY | 2025-03-15 02:47 | XMS_ITS | Clinical Summary ---
Author Organization [facility] [employer] Address [address] [place] [address] Care Team Providers Care Strand Buncher Fine Wire Name Role Phone Elio Fleming MD Primary Care Provider Unav ailable Source Comments [facility],non-owned Affiliates and Associated Physician Practices is amultiple site organization consisting of ambulatory clinics and hospital sitesin [place], [place], [place] and [place]. This disclosure is being madepursuant to the Care Everywhere program and may not contain all information available regarding this patient. Last updated 18.[facility] Allergies Active Allergy Reactions Criticality Noted Date Comments Penicillins Skin Reactions Medium 09/26/2012 Medications * Be aware that medications may not be up to date on this document. Alwaysverify current medications with the patient. clobetasol (TEMOVATE) 0.05 % ointment Apply to affected area 2 times daily as needed (to groin) 11/02/2018 Active levothyroxine (SYNTHROID) 88 MCG tablet Take 1 (one) tablet by mouth once daily Active escitalopram (LEXAPRO) 20 MG tablet Take 1 (one) tablet by mouth once daily 10/28/2018 Active vitamin D, ergocalciferol, (DRISDOL) 1.25 MG (13710 UT) capsuleIndicati ons:Vitamin D deficiency,Incr eased PTH level Take 1 capsule by mouth every 7 days 12 capsule 09/12/2019 Active buPROPion XL 24hr (Wellbutrin-XL) 150 MG tablet Take 1 tablet every day by oral route. 08/25/2023 Active vitamin D, ergocalciferol, (Drisdol) 1.25 MG (45341 UT) capsule Take 1 (one) capsule by [...] = 0.6 oz pur e alcohol) occasional Comments No Sex and Gender Information Value Date Recorded Sex Assigned at Female 04/15/2022 8:45 PM CDT Legal Sex Female 5:56 PM ENVIRONMENTAL EMERGENCIES ASSISTANT Gender Identity Female 04/15/2022 8:45 PM CDT [...] 2:20 PM CDT Height 165.1 cm (5' 5) 09/19/2023 2:20 PM CDT Body Mass Index 33.95 09/19/2023 2:20 PM CDT Plan of Treatment Health Maintenance Due Date Last Done Comments COLOGUARD (AGES 45-75) - COLON CA SCREENING 1967 COLON MONITORING 1967 COLONOSCOPY - COLON CA SCREENING 1967 CT COLONOGRAPHY - COLON CA SCREENING 1967 Colorectal Cancer Screening 1967 FIT - COLON CA SCREENING 1967 FLEX SIG - COLON CA SCREENING 1967 LIPID TESTING 1967 HIV SCREENING 11/30/1982 HEPATITIS C SCREENING 11/26/1985 DTAP/TDAP/TD VACCINES (1 - Tdap) 11/30/1986 HEPATITIS B VACCINE (1 of 3 - 19+ 3-dose series) 11/30/1986 PAP SMEAR 11/30/1988 PNEUMOCOCCAL VACCINE 50+ (1 of 1 - PCV) 11/30/2017 ZOSTER VACCINE (1 of 2) 11/30/2017 MAMMOGRAM 04/11/2020 04/11/2018, 11/17, 12/26/2011 DEPRESSION SCREENING 06/19/2024 COVID-19 VACCINE ( season) 2025 INFLUENZA VACCINE (#1) 2025 SCREENING FOR DIABETES 08/28/2026 4, 07/31/2019, 01/31/2019, Additional history exists HIB VACCINE [...] Routine 08/29/2023 12:25 PM CDT Morbid obesity Bariatric surgery status Vitamin deficiency Vitamin D deficiency Postsurgical malabsorption from Last 3 Months or Most Recently [...] Resulting Agency Comment Lab Testing performed at: [facility] [id number] [facility] [id number] Nicol Cintron FOUNDATION DRILL OPERATOR HELPER-POLYSTYRENE MOLDING MACHINE TENDER LAB - CHEMISTRY VERA VALLADARES Final Result [facility] ACCOUNT BILL [address] [place] [address] from Last 3 Months or Most Recently Relevant to Health Maintenance Insurance [facility] Advance Directives * Full Code (Latest Code Status on File) Date Activated Date Inactivated Comments 01/30/2019 3:02 PM 01/31/2019 4:52 PM Care Teams Strand Buncher Fine Wire Relationship Specialty Start Date End Date Elio Fleming MD PCP - General 09/26/12
--- OUTSIDE RECORDS SUMMARY | 2025-03-15 02:47 | XMS_ITS | Clinical Summary ---
Author Organization [facility] Care Team Providers Care Shredded Filler Hopper Feeder Name Role Phone Unavailable Primary Care Provider [...] Cervical Cancer Screening (CCS) 11/30/1997 HPV/Cotest 11/30/1997 Cologuard 11/30/2012 Colonoscopy 11/30/2012 Colorectal Cancer Screening 11/30/2012 Immunochemical Fecal Occult Blood 11/30/2012 Pneumococcal Immunization (5 0+ years) (1 of 1 - PCV) 11/30/2017 Zoster Immunization (1 of 2) 11/30/2017 SARS-COV-2 Immunization ( - season) 2024 Influenza Immunization (#1) 2025 Respiratory Syncytial Virus (RSV) Immunization (Adult) (1 - 1-dose 75+ series) 11/30/2042 Human Papillomavirus (HPV) Immunization Aged Out No longer eligible b ased on patient's age to complete this topic Meningococcal Immunization (ACWY) Aged Out No longer eligible based on patient's age to complete this topic Rotavirus Immunization Aged Out No lo nger eligible based on patient's age to complete this topic
--- OUTSIDE RECORDS SUMMARY | 2025-03-15 02:47 | XMS_ITS | Data Portability ---
Author Organization [place] [facility] [employer], Main Office Address [address] [place] [address] Assessment Encounter Date Assessment Date Assessment LastModified by Organization Details LastModified Time 10/13/2022 10/13/2022 This note is dictated and transcribed by [employer]. Pony Roll Finisher variances may occur. Despite proofreading, typographical errors may occur. Not available 10/13/2022 17:31:56 11/10/2022 11/10/2022 This note is dictated and transcribed by [employer]. [employer] variances may occur. Despite proofreading, typographical errors may occur. Not available 11/10/2022 10:31:22 Plan of Treatment Reminders Order Date Submit Date Provider Last Modified By Organization Details Last Modified Time Details Appointments None recorded. Lab CBC w/ auto diff [address] (Lab), [address] [place], [address], 17:12:39 BMP, serum or plasma [address] (Lab), [address] [place], [address], 17:16:40 magnesium, serum or plasma [address] (Lab), [address] [place], [address], 04/10/202 3 09:54:49 TSH, serum or plasma [address] (Lab), [address] [place], [address], 3 13:24:55 T4, free, serum [address] (Lab), [address] [place], [address], 3 13:26:10 glycohemogl obin, total, blood [address] (Lab), [address] [place], [address], 3 11:12:44 vitamin B12, serum [address] (Lab), [address] [place], [address], 3 17:35:43 folate, serum [address] (Lab), [address] [place], [address], 3 11:12:20 Referral cardiologis t referral 2022 023 [facility] Referral Fax Line, [address] [facility], [facility] [address], [place], [address], 3 16:32:24 Procedures None recorded. Surgeries None recorded. Imaging XR, foot, 3 or more view 2022 023 cheko 7 [facility] [place], [facility], [place], [address], 3 10:33:11 XR, foot, 3 or more view 2022 023 cheko 7 [facility] [place], [address], [place], [address], 3 17:32:06 XR, toe(s) - injured right great toe 2022 023 CAMILO Not available 17:11:59 Medication Orders bupropion HCl XL 300 mg 24 hr tablet, extended release 2023 024 [facility][id number], [address], [place], [id number], 4 10:57:10 bupropion HCl XL 150 mg 24 hr tablet, extended release 2023 024 [place] [email or web address][id number], [address], [place], [id number], 4 11:23:25 Patient TargetsNo targets recorded. Patient InstructionsNo instructions recorded. Reason for Referral [employer] [facility] Referring Physician: Eloisa Hauser, Family Medicine, Encounter Date: 09/21/2022 Results Created Date Observation Date Name Description Value Unit Range Abnormal Flag Note LastModifiedBy Organization Detail LastModifiedTime 09/25/1909/24/2022 BASIC METAB OLIC PANEL glucose 87 mg/dL 65-99 normal Fasti ng refer ence inter kenneth Not Available [facility] [address] [place], [address], 09/24/2022 02:42:29 09/25/19 23 09/24/2022 BASIC METAB OLIC PANEL urea nitrogen (BUN) 11 mg/dL 7-25 normal Not Available [facility] [address] [place], [address], 09/24/2022 02:42:29 09/25/19 23 09/24/2022 BASIC METAB OLIC PANEL creatinine 0.94 mg/dL 0.50-1 .03 normal Not Available [address], [address], 09/24/2022 02:42:29 09/25/19 23 09/24/2022 BASIC METAB OLIC PANEL eGFR 72 mL/mi n/1.7 3m2 > or = 60 normal The eGFR is based on the CKD-E PI 2020 equat ion. To calcu late the new eGFR from a previ ous Creat inine or Cysta tin C resul t, go to https ://sonia w.jacob kimy.o carmella/ledy ofess mellissaal s/ kdoqi /gfr% 5Fcal culat or Not Available [address], [address], 09/24/2022 02:42:29 09/25/19 23 09/24/2022 BASIC METAB OLIC PANEL BUN/creatini ne ratio NOT APPLIC ABLE (calc ) 6-22 Not Available [address], [address], 09/24/2022 02:42:29 09/25/19 23 09/24/2022 BASIC METAB OLIC PANEL sodium 142 mmol/ L 135-14 6 normal Not Available [address], [address], 09/24/2022 02:42:29 09/25/19 23 09/24/2022 BASIC METAB OLIC PANEL potassium 4.4 mmol/ L 3.5-5. 3 normal Not Available [facility] [address], [address], 09/24/2022 02:42:29 09/25/19 23 09/24/2022 BASIC METAB OLIC PANEL chloride 108 mmol/ L 98-110 normal Not Available [address], [address], 09/24/2022 02:42:29 09/25/19 23 09/24/2022 BASIC METAB OLIC PANEL carbon dioxide 27 mmol/ L 20-32 normal Not Available [address], [address], 09/24/2022 02:42:29 09/25/19 23 09/24/2022 BASIC METAB OLIC PANEL calcium 9.1 mg/dL 8.6-10 .4 normal Not Available [address], [address], 09/24/2022 02:42:29 09/25/19 23 09/24/2022 TSH TSH 2.57 mIU/L normal Refer ence Range > or = 20 Years 0.40- 4.50 Pregn andrew Range s First trime ster 0.26- 2.66 Secon d trime ster 0.55- 2.73 Third trime ster 0.43- 2.91 Not Available [address], [address], 09/24/2022 02:42:31 09/25/19 23 09/24/2022 MAGNE SIUM magnesium 2.0 mg/dL 1.5-2. 5 normal Not Available [address], [address], 09/24/2022 02:42:35 09/25/19 23 09/24/2022 CBC (INCL UDES DIFF/ PLT) white blood cell count 5.5 thous and/u L 3.8-10 .8 normal Not Available [address], [address], 09/24/2022 02:42:36 09/25/19 23 09/24/2022 CBC (INCL UDES DIFF/ PLT) red blood cell count 4.21 ez on/uL 3.80-5 .10 normal Not Available [address], [address], 09/24/2022 02:42:36 09/25/19 23 09/24/2022 CBC (INCL UDES DIFF/ PLT) hemoglobin 12.6 g/dL 11.7-1 5.5 normal Not Available [address], [address], 09/24/2022 02:42:36 09/25/19 23 09/24/2022 CBC (INCL UDES DIFF/ PLT) hematocrit 39.6 % 35.0-4 5.0 normal Not Available [address], [address], 09/24/2022 02:42:36 09/25/19 23 09/24/2022 CBC (INCL UDES DIFF/ PLT) MCV 94.1 fL 80.0-1 00.0 normal Not Available [address], [address], 09/24/2022 02:42:36 09/25/19 23 09/24/2022 CBC (INCL UDES DIFF/ PLT) MCH 29.9 pg 27.0-3 3.0 normal Not Available [address], [address], 09/24/2022 02:42:36 09/25/19 23 09/24/2022 CBC (INCL UDES DIFF/ PLT) MCHC 31.8 g/dL 32.0-3 6.0 low Not Available [address], [address], 09/24/2022 02:42:36 09/25/19 23 09/24/2022 CBC (INCL UDES DIFF/ PLT) RDW 11.9 % 11.0-1 5.0 normal Not Available [address], [address], 09/24/2022 02:42:36 09/25/19 23 09/24/2022 CBC (INCL UDES DIFF/ PLT) platelet count 241 thous and/u L 140-40 0 normal Not Available [address], [address], 09/24/2022 02:42:36 09/25/19 23 09/24/2022 CBC (INCL UDES DIFF/ PLT) MPV 13.1 fL 7.5-12 .5 high Not Available [address], [address], 09/24/2022 02:42:36 09/25/19 23 09/24/2022 CBC (INCL UDES DIFF/ PLT) absolute neutrophils 3289 cells /uL 1500-7 800 normal Not Available [address], [address], 09/24/2022 02:42:36 09/25/19 23 09/24/2022 CBC (INCL UDES DIFF/ PLT) absolute lymphocytes 1573 cells /uL 850-39 00 normal Not Available [address], [address], 09/24/2022 02:42:36 09/25/19 23 09/24/2022 CBC (INCL UDES DIFF/ PLT) absolute monocytes 380 cells /uL 200-95 0 normal Not Available [address], [address], 09/24/2022 02:42:36 09/25/19 23 09/24/2022 CBC (INCL UDES DIFF/ PLT) absolute eosinophils 231 cells /uL 15-500 normal Not Available [address], [address], 09/24/2022 02:42:36 09/25/19 23 09/24/2022 CBC (INCL UDES DIFF/ PLT) absolute basophils 28 cells /uL 0-200 normal Not Available [address], [address], 09/24/2022 02:42:36 09/25/19 23 09/24/2022 CBC (INCL UDES DIFF/ PLT) neutrophils 59.8 % normal Not Available [address], [address], 09/24/2022 02:42:36 09/25/19 23 09/24/2022 CBC (INCL UDES DIFF/ PLT) lymphocytes 28.6 % normal Not Available [address], [address], 09/24/2022 02:42:36 09/25/19 23 09/24/2022 CBC (INCL UDES DIFF/ PLT) monocytes 6.9 % normal Not Available [facility] [address], [address], 09/24/2022 02:42:36 09/25/19 23 09/24/2022 CBC (INCL UDES DIFF/ PLT) eosinophils 4.2 % normal Not Available [address], [address], 09/24/2022 02:42:36 09/25/19 23 09/24/2022 CBC (INCL UDES DIFF/ PLT) basophils 0.5 % normal Not Available [address], [address], 09/24/2022 02:42:36 09/25/1909/24/2022 FOLAT E, SERUM folate, serum 12.8 NG/mL normal Refer ence Range Low: <3.4 Borde rline : 3.4-5 .4 Sydnee l: >5.4 Not Available [address], [address], 09/24/2022 02:42:37 09/25/1909/24/2022 T4, FREE T4, free 1.1 NG/dL 0.8-1. 8 normal Not Available [address], [address], 09/24/2022 02:42:37 09/25/1909/24/2022 VITAM IN B12 vitamin B12 421 pg/mL 200-11 00 normal Not Available [facility] [address] [place], [address], 09/24/2022 02:42:38 09/25/19 23 09/24/2022 HEMOG LOBIN [...] CLIEN T SERVI KIRAN. PHONE NUMBE R: [phone] Not Available [facility] (Lab) [address], [place], [address], 09/24/2022 02:42:38 09/22/1909/21/2022 XR, toe(s ) No observ ation record ed. [email or web address] [facility] [address], [place], [address], 09/22/2022 15:44:25 10/14/19 23 XR, foot, 3 or more view No observ ation record ed. [email or web address] [facility] [place] [address] [facility] [address], [place], [address], 10/13/2022 17:31:44 10/25/19 23 10/21/2022 , echoc ardio gram No observ ation record ed. [email or web address] [facility] [address], [place], [address], 10/26/2022 11:27:09 11/11/19 23 XR, foot, 3 or more view No observ ation record ed. [email or web address] [facility] [place] [address] [facility] [address], [place], [address], 11/10/2022 10:33:12 11/18/19 23 10/10/2022 cardi ac monit or No observ ation record ed. [email or web address] [facility] [address], [place], [address], 11/21/2022 09:24:42 Result Notes None recorded. Problems Name Problem SNOMED Code Status Onset Date Resolution Date Notes Provider Name and Address Organization Details Recorded Time Mixed anxiety and depressive disorder 375530353 Active 2021 Not Available [facility] 3 00:58:10 Hypothyroidis m 93392232 Active 2021 Not Available [facility] 3 00:58:10 Tachycardia 1546412 Active 2022 Eloisa Hauser MD [address], [facility] [address], [place], [address] , [employer]ou [employer] 3 13:02:11 Cobalamin deficiency 485397989 Active 2022 Eloisa Hauser MD [address], [address], [place], [address] , [facility] [employer] 3 13:06:51 Hypoglycemia 688836243 Active 2022 Eloisa Hauser MD [address], [address] , [facility] 3 13:10:35 Injury of great toe 765658221 Active 2022 Eloisa Hauser MD [address], [address] , [facility] [employer] [facility] 3 13:14:59 Fracture of great toe 320810928 Active 2022 Eloisa Hauser MD [address], [address] , [facility] [employer] [facility] [employer] 3 13:24:01 Closed fracture of distal phalanx of great toe 345558408 Active 2022 Tex Williamson DPM [address], [address] , [facility] [employer] [facility] [employer] 3 17:30:18 Acute sinusitis 78535669 Active 2023 Eloisa Hauser MD [address], [address] , [facility] [employer] [facility] [employer] [facility] 4 16:36:26 Problem Notes None recorded. Procedures Surgical History Date Name Laterality Status Provider Name and Address Organization Details Recorded Time Eye Surgery completed Radha Raza [facility] 10/13/2022 16:21:48 Breast Biopsy completed Radha Jose [facility] [employer] [facility] 10/13/2022 16:21:59 bypass of stomach completed Radha Jose [facility] 10/13/2022 16:22:18 Imaging Results None recorded. Procedure Notes None recorded. Medical Equipment None Reported. Allergies Allergen ID Allergen Name Allergen Category Reaction Reaction Severity Criticality Documentation Date Start Date Code Code System Note Provider Name and Address Organization Details Recorded Time 95414 Product containin g penicilli n (product) medicatio n hives Not available Not available 08/18/2022 98081 8001 SNOMED Not Available [employer] 3 00:59:37 Medications Name Sig Start Date Stop [...] blood by Pulse oximetry Heart rate Systolic And Diastolic Provider Name and Address Organization Details Last Updated DateTime 4 167.64 cm 33.2 kg/m2 34416.2 4 g 96.8 [degF] 98 % 98 % 70 /min 110/76 mm[Hg] Mary Harden RN [facility] 4 11:02:58 Date Recorded Body height Body mass index (BMI) Body weight Body temperature Heart rate Oxygen saturation Oxygen saturation in Arterial blood by Pulse oximetry Systolic And Diastolic Provider Name and Address Organization Details Last Updated DateTime 3 167.64 cm 31.5 kg/m2 44253.5 1 g 97.9 [degF] 55 /min 100 % 100 % 124/86 mm[Hg] Garret Borjas CMA [facility] 3 12:47:41 Date Recorded Body height Body mass index (BMI) Body weight Body temperature Heart rate Oxygen saturation Oxygen saturation in Arterial blood by Pulse oximetry Systolic And Diastolic Provider Name and Address Organization Details Last Updated DateTime 4 167.64 cm 33.4 kg/m2 85855.6 2 g 97.7 [degF] 59 /min 97 % 97 % 116/78 mm[Hg] Matthieu Zhang RN [facility] 4 10:46:50 Date Recorded Body height Body mass index (BMI) Body weight Heart rate Respiratory rate Oxygen saturation Oxygen saturation in Arterial blood by Pulse oximetry Systolic And Diastolic Provider Name and Address Organization Details Last Updated DateTime 3 167.64 cm 31.5 kg/m2 55584.5 1 g 63 /min 14 /min 99 % 99 % 115/68 mm[Hg] Radha BENT[place] [employer] [facility] [employer] 3 16:29:03 Date Recorded Body height Body mass index (BMI) Body weight Heart rate Respiratory rate Oxygen saturation Oxygen saturation in Arterial blood by Pulse oximetry Systolic And Diastolic Provider Name and Address Organization Details Last Updated DateTime 3 167.64 cm 31.5 kg/m2 14969.5 1 g 74 /min 14 /min 98 % 98 % 116/71 mm[Hg] Radha Jose whodoyou [facility] [employer] 3 09:51:37 Social History Question Answer Notes LastModified by [employer] Details LastModified Time Tobacco Smoking Status Former Smoker smoked for 4 years, quit age 32 Not Available [facility] 08/18/2022 00:57:11 What Is Your Level Of Caffeine Consumption? Moderate [id number] Information not available 08/18/2022 In The 14 Days Before Symptom Onset, Have You Had Close Contact With A Laboratory-confir med COVID-19 While That Case Was Ill? No [id number] Information not available 08/18/2022 In The 14 Days Before Symptom Onset, Have You Had Close Contact With A Person Who Is Under Investigation For COVID-19 While That Person Was Ill? No MIGRATION.[id number] [id number] Information not available 08/18/2022 What Type Of Diet Are You Following? REGULAR MIGRATION.[id number] 0160 Information not available 08/18/2022 What Was The Date Of Your Most Recent Tobacco Screening? 10/13/2022 [email or web address] Information not available 10/13/2022 Have You Ever Been Counseled For Unhealthy Alcohol Use? No MIGRATION.281002 9974 Information not available 08/18/2022 Has Tobacco Cessation Counseling Been Provided? No MIGRATION.[id number] 2149 Information not available 08/18/2022 Have You Recently Traveled Abroad? No MIGRATION.[id number] 4629 Information not available 08/18/2022 Do You Have Any Dietary Restrictions? No MIGRATION.435784 4199 Information not available 08/18/2022 Sex: Unknown Functional Status Question Answer Note LastModified by [employer] Details LastModified Time Do you use any illicit or recreational drugs? No MIGRATION.[id number] 026 Information not available 08/18/2022 Do you or have you ever used any other forms of tobacco or nicotine? No MIGRATION.0866465 026 Information not available 08/18/2022 What is your level of alcohol consumption? Occasional MIGRATION.[id number] 026 Information not available 08/18/2022 What is your exercise level? Occasional [id number].[id number] 026 Information not available 08/18/2022 Mental Status None recorded. Family History Relationship Description Onset Age of this Age Resolved Age Notes LastModified by Organization Details LastModified Time Mother Malignant tumor of breast [id number] Not available 08/18/2022 00:57:24 Mother Malignant neoplasm of ovary [id number].[id number] Not available 08/18/2022 00:57:24 Medical History Condition Response ALLERGIES/HAYFEVER Y DEPRESSION (INCLUDING POST ) Y THYROID DISEASE Y Gynecological HistoryNo gynecological history recorded. Obstetrics History GPAL:G 0 P 0 0 0 0 Past Encounters Encounter ID Performer Location Encounter Start Date Encounter Closed Date Diagnosis/Indication Diagnosis SNOMED-CT Code Diagnosis ICD10 Code Diagnosis IMO Codes Diagnosis Note [id number] Eloisa Hauser MD [facility] Primary Care [facility] [address] [facility] [address] [place] [address] 11/22/2021 00:00:00 11/22/2021 09:31:27 [id number] Eloisa Hauser MD [facility] Primary Care [facility] [address] [facility] [address] [place] [address] 09/21/2022 12:38:31 09/21/2022 13:55:53 Tachycardia 6481007 R00.0 ? dumping or reactive hypoglycem ia Hypothyroidism 34110076 E03.9 Cobalamin deficiency 190 647941 E53.8 Hypoglycemia 207455123 E 16.2 Injury of great toe 2827 11684 S99.921A [id number] Tex Williamson DPM [facility] Podiatry [place] [address] [place] [address] 10/13/2022 16:19:42 10/14/2022 15:43:14 Closed fracture of distal phalanx of great toe 966355714 S92.424A Minimal weight-satish ring the next 4 weeksquest ionable fracture head proximal phalanx avulsionDi spensed postop shoeRice therapyfol low-up 4 weeks for x-rays [id number] Tex Williamson DPM [facility] Podiatry [place] [address] [place] [address] 11/10/2022 09:46:39 11/10/2022 10:53:14 Closed fracture of distal phalanx of great toe 701292098 S92.424A Minimal weight-satish ring the next 4 weeks - repeat x-rays today shows healing of the fractureDi spensed postop shoeRice therapyfol low-up 4 weeks for x-rays [id number] Eloisa Hauser MD [facility] Primary Care [facility] [address] [facility] [address] [place] [address] 08/25/2023 10:39:46 08/25/2023 11:30:56 Mixed anxiety and depressive disorder 962186441 F41.8 decrease escitalopr am to 20add bupropion xl 150 mgf/u in 4-6 weeks [id number] Eloisa Hauser MD [facility] Primary Care [facility] [address] [facility] [address] [place] [address] 10/11/2023 10:40:26 10/11/2023 10:58:27 Mixed anxiety and depressive disorder 246387546 F41.8 decrease escitalopr am to 20add bupropion [...] Recorded Advance Directives Directive None Recorded Payers Insurance Date Sequence Insurance Name Policy Number Policy Avilez Covered Member ID Avilez Member ID Guarantor Name 08/25/2023 1 [facility] [id number] Meir Perera [id number] Jessica Perera 10/17/2023 1 [facility] [id number] Meir Perera [id number] Jessica Perera Notes Date Note Type Note Provider Name and Address Organization Details Recorded Time 09/21/2022 text/html ROS as noted in the HPI Here with concern about her heart rate. About 3 week [...] was in an airport coming home from [facility] and had ordered a sugary strawberry [...] swollen, throbbing since then Eloisa Hauser MD [address] [place] [address], [facility] [address], [place], [address], [facility] 10/14/2022 17:40:42 10/13/2022 text/html . Patient is [...] Williamson DPM [address], [address], [place], [address], whodoyou [facility] [employer] 10/14/2022 14:17:04 11/10/2022 text/html . Patient is [...] Williamson DPM [address], [address], [place], [address], whodoyou [facility] [employer] 11/10/2022 10:33:29 08/25/2023 text/html ROS as noted in the HPI She increased escitalopram to 30 mg on [...] with bariatric surgeon today Eloisa Hauser MD [address], [address], [place], [address], whodoyou [facility] [employer] 09/13/2023 07:40:49 10/11/2023 text/html ROS as noted in the HPI She increased escitalopram to 30 mg on [...] bit. No med s/e. Eloisa Hauser MD [address] [facility], [facility] [address], [place], [address], [facility] [facility] 10/15/2023 13:06:03 OBGyn Episode No OBEpisode recorded.
--- NOTE | 2025-03-15 02:48 | ECG_ITS ---
Test Date: 2025-03-15 02:55:27 Measurements Intervals [place] Rate: 62 P: 50 ME: 159 QRS: 32 QRSD: 96 T: 53 QT: 420 QTc: 427 Interpretive Statements SINUS RHYTHM No previous ECG available for comparison Electronically Signed On 03-16-2025 20:37:30 CDT by Jamari Prieto D.O
--- OUTSIDE RECORDS SUMMARY | 2025-03-15 02:48 | XMS_ITS | Patient Health Record ---
Author Organization [facility] Address [address] [place], [place] [address] Care Team Providers Care Air Turning Machine Feeder Name Role Phone ART TRAVIS Unavailable [phone] Elio Fleming Unavailable Unavailable Reason For Referral No Information Medications Medication SIG (Take, Route, Frequency, Duration) Notes Start Date End Date Status Nabumetone 500 MG Oral Tablet ORAL nabumetone 500 MG Oral TabletOriginal Medicationnabumetone 500 MG Oral Tablet *Reorder from UYA100 for eRx and Interaction Alerts* 09/27/2012 Active escitalopram 20 MG Oral Tablet [Lexapro] ORAL escitalopram 20 MG Oral Tablet [Lexapro]Original Medicationescitalopram 20 MG Oral Tablet [Lexapro] *Reorder from UYA100 for eRx and Interaction Alerts* 09/27/2012 Active Plan Of Treatment No Information Insurance Providers Payer Name Payer Address Payer Phone Subscriber Number Group Number Insured Name Patient Relationship to Insured Coverage Start Date Coverage End Date Karime Anderson (Regions 1-6) [address] [place], [place] [phone] [id number] [id number] SKINNER Spouse - patient is the spouse of the insured
--- OUTSIDE RECORDS SUMMARY | 2025-03-15 02:48 | XMS_ITS | Encounter Summary ---
Author Organization [employer] Address [address] [place] [address] Care Team Providers Care Elementary Principal Name Role Phone Nathanael Dale MD Primary Care Provider Encounter Details Date Type Department Care Team (Latest Contact Info) Description 04/22/2000 Inpatient Historical HIS PATIENT IN A BED Nathanael Dale MD [address] [place] [address] Forceps or vacuum extractor delivery without mention of indication, delivered, with or without mention of antepartum condition (Primary Dx) Social History Tobacco Use Types Packs/Day Years Used Date Smoking Tobacco: Never Assessed Comments Unknown Sex and Gender Information Value Date Recorded Sex Assigned at Not on file 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
--- OUTSIDE RECORDS SUMMARY | 2025-03-15 02:48 | XMS_ITS | Clinical Summary ---
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 ACTUARIAL CLERK Gender Identity Not on file Sexual Orientation Not on file Occupation Industry Job Start Date Job End Date Not on file Not on file Not on file Not on file Not on file Not on file Not on file Not on file Last Filed Vital Signs Vital Sign Reading Time Taken Comments Blood Pressure 114/76 05/07/2010 1:12 PM ACTUARIAL CLERK Pulse - - Temperature - - Respiratory Rate - - Oxygen Saturation - - Inhaled Oxygen Concentration - - Weight 96.6 kg (213 lb) 06/08/2010 8:53 PM ACTUARIAL CLERK Height 165.1 cm (5' 5) 05/07/2010 1:12 PM ACTUARIAL CLERK Body Mass Index 35.45 05/07/2010 1:12 PM ACTUARIAL CLERK Plan of Treatment Health Maintenance Due Date Last Done Comments DTAP/TDAP/TD VACCINES (1 - Tdap) 11/30/1986 HEPATITIS B VACCINES (1 of 3 - 19+ 3-dose series) 11/30/1986 HPV/Cotest (21-29) 11/30/1988 CERVICAL CANCER SCREENING 11/30/1997 HPV/Cotest (30-65) 11/30/1997 PAP SMEAR 11/30/1997 COLORECTAL SCREENING 11/30/2012 Colorectal Cancer Screening 11/30/2012 FIT-DNA Q 3 years 11/30/2012 FIT/FOBT Q 1 year 11/30/2012 Flex Sig/CT Colonography Q 5 years 11/30/2012 BREAST CANCER SCREENING 12/25/2012 12/26/19 12, 05/07/2010, 05/01/2009 ZOSTER VACCINE (1 of 2) 11/30/2017 INFLUENZA VACCINE (#1) 2025 Procedures Procedure Name Priority Date/Time Associated Diagnosis [...] Recently Relevant to Health Maintenance Care Teams Breaker Mechanic Relationship Specialty Start Date End Date Nathanael Dale MD PCP - General 05/01/09
--- OUTSIDE RECORDS SUMMARY | 2025-03-15 02:48 | XMS_ITS | Encounter Summary ---
Author Organization [employer] Address 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
--- OUTSIDE RECORDS SUMMARY | 2025-03-15 02:48 | XMS_ITS | Encounter Summary ---
Author Organization [employer] Address 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
--- OUTSIDE RECORDS SUMMARY | 2025-03-15 02:48 | XMS_ITS | Clinical Summary ---
Author Organization [facility] Address [address] [place] [id number] Care Team Providers Care New Autos Delivery Driver Name Role Phone Unavailable Primary Care Provider [...] of 3 - 19+ 3-dose series) 11/30/1986 Pneumococcal Vaccine: 50+ Years (1 of 1 - PCV) 11/30/2017 Zoster Vaccines (1 of 2) 11/30/2017 Mammogram Screening 04/11/2020 04/11/2018, 6 Cervical Cancer Screening Pap Smear (Age 30 to 64) Every 3 Years 10/26/2020 10/26/2017, 10/15/2015, 02/02/1999, Additional history exists Cervical Cancer Screening Pap with HPV Testing (Age 30 to 64) Every 5 Years 10/21/2021 10/21/2016 Cervical Cancer Screening with HPV 10/21/2021 COVID-19 Vaccine ( season) 2025 Meningococcal B Vaccine Aged Out No l [...]
--- OUTSIDE RECORDS SUMMARY | 2025-03-15 02:48 | XMS_ITS | Clinical Summary ---
Author Organization [facility] Address [address] [place] [address] Care Team Providers Care Quality Internship Name Role Phone Elio Fleming MD Primary Care Provider [phone] Allergies Active Allergy Reactions Criticality Noted Date Comments Penicillins Hives,Rash Medium 09/26/2012 Medications levothyroxine (SYNTHROID, LEVOTHROID) 88 mcg tablet Take 1 tablet (88 mcg total) by mouth backside grinder before breakfast Active escitalopram (LEXAPRO) 20 mg tablet Take 1 tablet (20 mg total) by mouth daily 9 Active buPROPion XL (Wellbutrin XL) 300 mg 24 hr tablet Wellbutrin XL 300 mg tablet extended release 24 hr Active magnesium oxide (MAG-OX) 400 mg (241.3 mg elemental magnesium) tablet Take 1 tablet (400 mg total) by mouth 2 (two) times a day Active ergocalciferol (VITAMIN D) 50,000 unit capsule Take 1 capsule (50,000 Units total) by mouth once a week 0 Active clobetasoL (TEMOVATE) 0.05 % ointment Apply topically 2 (two) times a day as needed 9 Active metoprolol XL (TOPROL-XL) 25 mg extended release tablet Take 1 tablet (25 mg total) by mouth every morning Active Active Problems Problem Noted Date Diagnosed Date ZAINA (obstructive sleep apnea) 11/29/2024 Abnormal stress test 10/31/2018 Obstructive sleep apnea 10/31/2018 Assessment & Plan (09/16/2024 10:44 AM CDT): The patient did have difficulty continuing CPAP therapy in the past. The patient is interested in the inspire device. I have sent a referral over to Dr. Boyer. Assessment & Plan (11/02/2018 11:03 PM CDT): [...] (10/18/2018): Left breast biopsy 04-07-2008, fibrocystic change Encounters Date Type Department Care Team Description 03/10/2025 Telephone [facility] [place] [address] [place] [address] Shannon Denton MA Chart Prep (Appointment) 12/17/2024 Telephone [facility] - [facility] [address] [facility] [address] [place] [phone] Jarad Boyer MD 12/17/2024 Telephone [facility] Medical [facility] - [facility] [address] [facility] [address] [address] Jarad Boyer MD from Last 3 Months Surgical History Surgery Date Site/Laterality Comments APPENDECTOMY EYE SURGERY BREAST BIOPSY ENDOMETRIAL CRYOABLATION GASTRIC BYPASS 06/19/2019 - 06/18/2020 Medical History Medical History Date Comments Palpitations ZAINA on CPAP Follows w/ Dr. Farhan [place] Obesity Seasonal allergies Hypothyroidism Depression Anxiety Obstructive sleep apnea 10/31/2018 Family History Medical History Relation Name Comments Sleep apnea Father Breast cancer Mother Family history of malignant neoplasm of breast - (Added by TW Conv) Uterine cancer Mother Relation Name Status Comments Father Alive Mother Alive Social History Tobacco Use Types Packs/Day Years Used Date Smoking Tobacco: Former Cigarettes 0.3 10 1 989 - 1998 Smokeless Tobacco: Never Tobacco Cessation:Counseling Given: No Comments Unknown Sex and Gender Information Value Date Recorded Sex Assigned at Not on file Legal Sex Female 1:14 AM 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 Gender Identity Not on file Sexual Orientation Not on file Obstetrics History Last Filed Vital Signs Vital Sign Reading Time Taken Comments Blood Pressure 118/72 09/16/2024 9:45 AM CDT Pulse 63 09/16/2024 9:45 AM CDT Temperature 35.8 C (96.5 F) 09/16/2024 9:45 AM CDT Respiratory Rate 16 09/16/2024 9:45 AM CDT Oxygen Saturation 97% 09/16/2024 9:45 AM CDT Inhaled Oxygen Concentration - - Weight 102.1 kg (225 lb) 11/28/2024 9:02 AM CDT Height 167.6 cm (5' 6) 11/28/2024 9:02 AM CDT Body Mass Index 36.32 11/28/2024 9:02 AM CDT Plan of Treatment Health Maintenance Due Date Last Done Comments Cervical Cancer Screening 1967 Colon Cancer Screening-Colonoscopy 1967 Depression Screening 1967 Hepatitis C Screening 1967 DTaP/Tdap/Td Vaccine (1 - Tdap) 11/30/1978 Hepatitis B Screening 11/30/1985 Regular Well Visit/Exam 18-64 11/30/1985 Breast Cancer Screening-Mammogram 12/25/2012 012 Zoster Vaccine (1 of 2) 11/30/2017 Influenza Vaccine (#1) 2025 Pneumococcal vaccine <65 Aged Out No longer eligible based on patient's age to complete this topic Insurance [employer] [facility] CHOICE PLUS Care Teams Quality Internship Relationship Specialty Start Date End Date Elio Fleming MD PCP - General 03/13/17
--- OUTSIDE RECORDS SUMMARY | 2025-03-15 02:48 | XMS_ITS | Encounter Summary ---
Author Organization [employer] Address 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
--- OUTSIDE RECORDS SUMMARY | 2025-03-15 02:48 | XMS_ITS | Encounter Summary ---
Author Organization [employer] Address 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
--- OUTSIDE RECORDS SUMMARY | 2025-03-15 02:48 | XMS_ITS | Data Portability ---
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 CBC CMP lipid A1c T3-T4 TSH anti peroxidase antibodies thyroglobulin level sleep study. Bound and titrate thyroid ultrasound. Refer to Psychiatry for anxiety and depression and see me in 2 months records from previous PCP records from Cardiology [email or web address] Not available 02/17/2025 14:27:30 Plan of Treatment Reminders Order Date Submit Date Provider Last Modified By Organization Details Last Modified Time Details Appointments ANY 15 2024 10:30A M Colleen Londono MD Not available Not available Not available Lab CBC w/ auto diff 2024 025 [employer] [employer] [facility], [address], [address], 01/30/2025 13:15:56 CMP, serum or plasma 2024 025 [employer] [facility], [address], [address], 01/30/2025 13:15:55 lipid panel, serum 2024 025 [employer] [facility], [address], [address], 01/30/2025 13:15:54 thyroid peroxidas e (tpo) Ab, serum 2024 025 [employer] [facility], [address], [address], 01/30/2025 13:15:57 TSH, serum or plasma 2024 025 [employer] [facility], [address] [address], [place], [address], 01/30/2025 13:15:59 T4, free, serum 2024 025 [employer] [facility], [address], [address], 01/30/2025 13:15:59 T3, free, serum or plasma 2024 025 [employer] [facility], [address], [address], 01/30/2025 13:15:58 HbA1c (hemoglob in A1c), blood 2024 025 [employer] [facility], [address], [address], 01/30/2025 13:16:00 Referral psychiatr ist referral 2024 025 [email or web address] Suhail Longo MD, [address], [facility] [address], [place], [address], 02/24/2025 11:01:07 Procedures polysomno graphy (PROC) 2024 025 [facility] ([facility]), [address] [place], [address], 03/12/2025 16:01:17 Surgeries None recorded. Imaging US, thyroid 2024 025 [facility], [address], [facility] [address], [place], [address], 02/18/2025 04:27:19 Medication Orders Zepbound 2.5 mg/0.5 mL subcutane ous pen injector 2024 025 [id number], [address] [facility], [place], [phone], 01/20/2025 16:59:36 Patient TargetsNo targets recorded. Patient Instructions Encounter Date Encounter Id Patient Instructions Last Modified By Organization Details Last Modified Time 01/20/2025 [id number] A healthy lifestyle: care instructions Not available 01/20/2025 16:59:36 Reason for Referral Psychiatrist Referral for De pressive disorder Referring Physician: Colleen Londono, Internal Medicine, Encounter Date: 01/20/2025 Results Created Date Observation Date Name Description Value Unit Range Abnormal Flag Note LastModifiedBy Organization Detail LastModifiedTime 01/29/2001/30/2025 LIPID PANEL , STAND SHAUNA cholesterol, total 182 mg/dL <200 normal Not Available [facility] [address] [place], [address], 01/30/2025 13:15:54 01/29/2001/30/2025 LIPID PANEL , STAND SHAUNA HDL cholesterol 81 mg/dL > or = 50 normal Not Available [facility] [address] [place], [address], 01/30/2025 13:15:54 01/29/2001/30/2025 LIPID PANEL , STAND SHAUNA triglyceride s 83 mg/dL <150 normal Not Available [facility] [address] [place], [address], 01/30/2025 13:15:54 01/29/2001/30/2025 LIPID PANEL , STAND SHAUNA LDL-choleste rol 84 mg/dL _(angelique c) normal Refer ence range : <100 Sravanthi able range <100 mg/dL for prima ry preve ntion ; <70 mg/dL for patie nts with CHD or diabe tic patie nts with > or = 2 CHD risk facto rs. LDL-C is now calcu lated using the [facility] kins sb hubbard, which is a valid ated novel crow mccracken accur acy than the Fried anette equat ion in the estim ation of LDL-C . Grace hubbard SS et al. RACHEL. 2013; 310(1 9): 2061- 2068 (http ://ed ucati on.Qu estDi kites.ios. com/f aq/FA Q164) Not Available [address] [address] [place], [address], 01/30/2025 13:15:54 01/29/2001/30/2025 LIPID PANEL , STAND SHAUNA chol/HDLC ratio 2.2 (calc ) <5.0 normal Not Available [address] [address] [place], [address], 01/30/2025 13:15:54 01/29/2001/30/2025 LIPID PANEL , STAND SHAUNA non HDL cholesterol 101 mg/dL _(angelique c) <130 normal For patie nts with diabe david plus 1 major ASCVD risk facto r, treat ing to a non-H DL-C goal of <100 mg/dL (LDL- C of <70 mg/dL ) is latosha gamezo n. Not Available [address] [address] [place], [address], 01/30/2025 13:15:54 01/29/2001/30/2025 COMPR EHENS SERENA METAB OLIC PANEL glucose 94 mg/dL 65-139 normal Non-f astin g refer ence inter kenneth Not Available [address] [address] [place], [address], 01/30/2025 13:15:55 01/29/20 25 01/30/2025 COMPR EHENS SERENA METAB OLIC PANEL urea nitrogen (BUN) 15 mg/dL 7-25 normal Not Available [address], [address], 01/30/2025 13:15:55 01/29/20 25 01/30/2025 COMPR EHENS SERENA METAB OLIC PANEL creatinine 0.97 mg/dL 0.50-1 .03 normal Not Available [address], [address], 01/30/2025 13:15:55 01/29/20 25 01/30/2025 COMPR EHENS SERENA METAB OLIC PANEL eGFR 68 mL/mi n/1.7 3m2 > or = 60 normal Not Available [address], [address], 01/30/2025 13:15:55 01/29/20 25 01/30/2025 COMPR EHENS SERENA METAB OLIC PANEL BUN/creatini ne ratio SEE NOTE: (calc ) 6-22 Not Repor cirilo: BUN and Creat inine are withi n refer ence range . Not Available [address], [address], 01/30/2025 13:15:55 01/29/20 25 01/30/2025 COMPR EHENS SERENA METAB OLIC PANEL sodium 140 mmol/ L 135-14 6 normal Not Available [address], [address], 01/30/2025 13:15:55 01/29/20 25 01/30/2025 COMPR EHENS SERENA METAB OLIC PANEL potassium 4.6 mmol/ L 3.5-5. 3 normal Not Available [address], [address], 01/30/2025 13:15:55 01/29/20 25 01/30/2025 COMPR EHENS SERENA METAB OLIC PANEL chloride 105 mmol/ L 98-110 normal Not Available [address], [address], 01/30/2025 13:15:55 01/29/20 25 01/30/2025 COMPR EHENS SERENA METAB OLIC PANEL carbon dioxide 29 mmol/ L 20-32 normal Not Available [address], [address], 01/30/2025 13:15:55 01/29/20 25 01/30/2025 COMPR EHENS SERENA METAB OLIC PANEL calcium 9.2 mg/dL 8.6-10 .4 normal Not Available [address], [address], 01/30/2025 13:15:55 01/29/20 25 01/30/2025 COMPR EHENS SERENA METAB OLIC PANEL protein, total 6.7 g/dL 6.1-8. 1 normal Not Available [address], [address], 01/30/2025 13:15:55 01/29/20 25 01/30/2025 COMPR EHENS SERENA METAB OLIC PANEL albumin 4.4 g/dL 3.6-5. 1 normal Not Available [address], [address], 01/30/2025 13:15:55 01/29/20 25 01/30/2025 COMPR EHENS SERENA METAB OLIC PANEL globulin 2.3 g/dL_ (calc ) 1.9-3. 7 normal Not Available [address], [address], 01/30/2025 13:15:55 01/29/20 25 01/30/2025 COMPR EHENS SERENA METAB OLIC PANEL albumin/glob ulin ratio 1.9 (calc ) 1.0-2. 5 normal Not Available [address], [address], 01/30/2025 13:15:55 01/29/20 25 01/30/2025 COMPR EHENS SERENA METAB OLIC PANEL bilirubin, total 0.8 mg/dL 0.2-1. 2 normal Not Available [address], [address], 01/30/2025 13:15:55 01/29/20 25 01/30/2025 COMPR EHENS SERENA METAB OLIC PANEL alkaline phosphatase 128 U/L 37-153 normal Not Available [facility] [employer] [address], [address], 01/30/2025 13:15:55 01/29/20 25 01/30/2025 COMPR EHENS SERENA METAB OLIC PANEL AST 24 U/L 10-35 normal Not Available [address], [address], 01/30/2025 13:15:55 01/29/2001/30/2025 COMPR EHENS SERENA METAB OLIC PANEL ALT 17 U/L 6-29 normal Not Available [address], [address], 01/30/2025 13:15:55 01/29/20 25 01/30/2025 CBC (INCL UDES DIFF/ PLT) white blood cell count 6.7 thous and/u L 3.8-10 .8 normal Not Available [address], [address], 01/30/2025 13:15:56 01/29/20 25 01/30/2025 CBC (INCL UDES DIFF/ PLT) red blood cell count 3.98 ez on/uL 3.80-5 .10 normal Not Available [address], [address], 01/30/2025 13:15:56 01/29/20 25 01/30/2025 CBC (INCL UDES DIFF/ PLT) hemoglobin 12.8 g/dL 11.7-1 5.5 normal Not Available [address], [address], 01/30/2025 13:15:56 01/29/2001/30/2025 CBC (INCL UDES DIFF/ PLT) hematocrit 39.6 % 35.0-4 5.0 normal Not Available [facility] [address], [address], 01/30/2025 13:15:56 01/29/20 25 01/30/2025 CBC (INCL UDES DIFF/ PLT) MCV 99.5 fL 80.0-1 00.0 normal Not Available [facility] [address], [address], 01/30/2025 13:15:56 01/29/20 25 01/30/2025 CBC (INCL UDES DIFF/ PLT) MCH 32.2 pg 27.0-3 3.0 normal Not Available [address], [address], 01/30/2025 13:15:56 01/29/20 25 01/30/2025 CBC (INCL UDES DIFF/ PLT) MCHC 32.3 g/dL 32.0-3 6.0 normal For adult s, a sligh t decre ase in the calcu lated MCHC value (in the range of 30 to 32 g/dL) is most likel y not clini cesar signi dominik t; linda er, it shoul d be inter prete d with cauti on in [facility] n with other red cell sheryl eters and the patie nt's clini angelique condi tion. Not Available [facility] [address], [address], 01/30/2025 13:15:56 01/29/2001/30/2025 CBC (INCL UDES DIFF/ PLT) RDW 12.8 % 11.0-1 5.0 normal Not Available [address], [address], 01/30/2025 13:15:56 01/29/20 25 01/30/2025 CBC (INCL UDES DIFF/ PLT) platelet count 274 thous and/u L 140-40 0 normal Not Available [address], [address], 01/30/2025 13:15:56 01/29/20 25 01/30/2025 CBC (INCL UDES DIFF/ PLT) MPV 12.0 fL 7.5-12 .5 normal Not Available [address], [address], 01/30/2025 13:15:56 01/29/20 25 01/30/2025 CBC (INCL UDES DIFF/ PLT) absolute neutrophils 4315 cells /uL 1500-7 800 normal Not Available [address], [address], 01/30/2025 13:15:56 01/29/20 25 01/30/2025 CBC (INCL UDES DIFF/ PLT) absolute lymphocytes 1695 cells /uL 850-39 00 normal Not Available [address], [address], 01/30/2025 13:15:56 01/29/20 25 01/30/2025 CBC (INCL UDES DIFF/ PLT) absolute monocytes 436 cells /uL 200-95 0 normal Not Available [address], [address], 01/30/2025 13:15:56 01/29/20 25 01/30/2025 CBC (INCL UDES DIFF/ PLT) absolute eosinophils 194 cells /uL 15-500 normal Not Available [address], [address], 01/30/2025 13:15:56 01/29/20 25 01/30/2025 CBC (INCL UDES DIFF/ PLT) absolute basophils 60 cells /uL 0-200 normal Not Available [facility] [address] [address], [place], [address], 01/30/2025 13:15:56 01/29/20 25 01/30/2025 CBC (INCL UDES DIFF/ PLT) neutrophils 64.4 % normal Not Available [address], [address], 01/30/2025 13:15:56 01/29/20 25 01/30/2025 CBC (INCL UDES DIFF/ PLT) lymphocytes 25.3 % normal Not Available [address], [address], 01/30/2025 13:15:56 01/29/20 25 01/30/2025 CBC (INCL UDES DIFF/ PLT) monocytes 6.5 % normal Not Available [address], [address], 01/30/2025 13:15:56 01/29/20 25 01/30/2025 CBC (INCL UDES DIFF/ PLT) eosinophils 2.9 % normal Not Available [address], [address], 01/30/2025 13:15:56 01/29/20 25 01/30/2025 CBC (INCL UDES DIFF/ PLT) basophils 0.9 % normal Not Available [address], [address], 01/30/2025 13:15:56 01/29/2001/30/2025 THYRO ID PEROX IDASE ANTIB ODIES thyroid peroxidase antibodies 2 IU/mL <9 Not Available [address], [address], 01/30/2025 13:15:57 01/29/20 25 01/30/2025 T3, FREE T3, free 2.9 pg/mL 2.3-4. 2 normal Not Available [address], [place], [address], 01/30/2025 13:15:58 01/29/2001/30/2025 T4, FREE T4, free 1.1 NG/dL 0.8-1. 8 normal Not Available [facility] [address] [address] [place], [address], 01/30/2025 13:15:59 01/29/2001/30/2025 TSH TSH 4.01 mIU/L 0.40-4 .50 normal Not Available [facility] [address] [address] [place], [address], 01/30/2025 13:15:59 01/29/2001/30/2025 HEMOG LOBIN A1C hemoglobin A1C 5.5 %_of_ total _HGB <5.7 normal For the purpo se of yoni her for the prese nce of diabe david: [...] Medic al Care in Diabe david(A DA). Not Available [facility] [address] [address] [place], [address], 01/30/2025 13:16:00 Result Notes None recorded. Problems Name Problem SNOMED Code Status Onset Date Resolution Date Notes Provider Name and Address Organization Details Recorded Time Obese class II 0907276100997 05 Active 2024 Haris Barrera [place] null, [place] [facility] 16:41:03 Palpitation s 22609916 Active 2024 Haris Barrera [place], [place] [facility] 16:41:04 Hypothyroid ism 80554113 Active 2024 Haris Barrera [place], [place] [facility] 16:41:04 Anxiety 84828696 Active 2024 Haris Barrera [place] [facility] 16:41:05 Depressive disorder 25668495 Active 2024 FRANCOISE [place], [place] [facility] 16:41:06 Obstructive sleep apnea syndrome 22350024 Active 2024 FRANCOISE [place] [facility] 16:41:06 Diabetes mellitus screening Active 2024 FRANCOISE [place], [place] [facility] 16:41:08 Problem Notes None recorded. Procedures Surgical History Date Name Laterality Status Provider Name and Address Organization Details Recorded Time Eye Surgery completed Irina Redd MA [place] - [facility] 01/20/2025 15:34:01 Appendectomy completed Irina Redd [place] [facility] 01/20/2025 15:34:21 Gastric Bypass completed Irina phillips [place] - [facility] 01/20/2025 15:34:27 Imaging Results None recorded. Procedure Notes None recorded. Medical Equipment None Reported. Allergies Allergen ID Allergen Name Allergen Category Reaction Reaction Severity Criticality Documentation Date Start Date Code Code System Note Provider Name and Address Organization Details Recorded Time 19420219 Product containin g penicilli n (product) medicatio n hives mild low 01/20/2025 78326 8001 SNOMED Irina Redd [place] null, [place] - [facility] 15:38:48 Medications Name Sig Start Date Stop Date Status Note LastModified by Organization Details LastModified Time clobetasol 0.05 % topical cream APPLY TOPICALLY TO THE AFFECTED AREA 1 TIME A WEEK active Not Available Not Available No t Available levothyroxine 75 mcg tablet TAKE 1 TABLET BY MOUTH EVERY MORNING BY ITSELF active Not Available Not Available No t Available magnesium oxide 400 mg (241.3 mg magnesium) tablet TAKE 1 TABLET BY MOUTH TWICE DAILY active Not Available Not Available No t Available aspirin 81 mg chewable tablet CHEW AND SWALLOW 1 TABLET BY MOUTH DAILY active Not Available Not Available No t Available metoprolol succinate ER 25 mg tablet,extend ed release 24 hr TAKE 1 TABLET BY MOUTH EVERY DAY IN THE MORNING active Not Available Not Available No t Available escitalopram 20 mg tablet TAKE 1 TABLET BY MOUTH EVERY DAY active Not Available Not Available No t Available bupropion HCl XL 300 mg 24 hr tablet, extended release TAKE 1 TABLET BY MOUTH EVERY DAY active Not Available Not Available No t Available Zepbound 2.5 mg/0.5 mL subcutaneous pen injector active Not Available Not Available Not Available Vitals Date Recorded Body weight Body mass index (BMI) Body height Heart rate Oxygen saturation Oxygen saturation in Arterial blood by Pulse oximetry Systolic And Diastolic Provider Name and Address Organization Details Last Updated DateTime 5 900074. 01 g 37 kg/m2 167.64 cm 73 /min 96 % 96 % 128/64 mm[Hg] Irina Redd MA [facility] 15:41:33 Social History Question Answer Notes LastModified by Organizat ion Details LastModified Time Tobacco Smoking Status Former Smoker Irina Redd [facility], [facility] 01/20/2025 15:35:07 Do You Have An Advance Directive? Yes Information n ot available 01/20/2025 Are You Blind Or Do You Have Difficulty Seeing? No Information n ot available 01/20/2025 What Is Your Level Of Caffeine Consumption? Moderate Information not available 01/20/2025 In The 14 Days Before Symptom Onset, Have You Had Close Contact With A Laboratory-confirm ed COVID-19 While That Case Was Ill? No Information n ot available 01/20/2025 In The 14 Days Before Symptom Onset, Have You Had Close Contact With A Person Who Is Under Investigation For COVID-19 While That Person Was Ill? No Information not available 01/20/2025 Have You Been To An Area Known To Be High Risk For COVID-19? No Information not available 01/20/2025 Are You Deaf Or Do You Have Serious Difficulty Hearing? No Information not available 01/20/2025 What Type Of Diet Are You Following? REGULAR Information n ot available 01/20/2025 Are There Any Guns Present In Your Home? No Information not available 01/20/2025 What Was The Date Of Your Most Recent Tobacco Screening? 01/20/2025 Information not available 01/20/2025 What Is Your Current Pack Years? 10packyears Information not available 01/20/2025 What Is Your Relationship Status? Information not available 01/20/2025 Do You Use Your Seat Belt Or Car Seat Routinely? Yes Information not available 01/20/2025 Do You Have Smoke And Carbon Monoxide Detectors In Your Home? Yes Information not available 01/20/2025 How Much Tobacco Do You Smoke? 1 PPD Information not available 01/20/2025 Do You Use Sunscreen Routinely? Yes Information not available 01/20/2025 Has Tobacco Cessation Counseling Been Provided? No Information not available 01/20/2025 How Many Years Have You Smoked Tobacco? 10 Information not available 01/20/2025 Sex: Female Functional Status Question Answer Note LastModified by Organizat ion Details LastModified Time Do you use any illicit or recreational drugs? No Information not available 01/20/2025 Do you or have you ever used any other forms of tobacco or nicotine? No Information not available 01/20/2025 What is your level of alcohol consumption? Moderate Information not available 01/20/2025 Are you currently employed? Yes Information not available 01/20/2025 Are you able to care for yourself independently? Yes Information not available 01/20/2025 Mental Status Question Answer Note LastModified by Organization D etails LastModified Time Do you feel stressed (tense, restless, nervous, or anxious, or unable to sleep at night)? [id number] Information not available 01/20/2025 Family History Relationship Description Onset Age of this Age Resolved Age Notes LastModified by Organization Details LastModified Time Father Heart disease mebyma Not available 2024 15:36:34 Father Myocardial infarction mebyma Not available 01/20 15:37:20 Father Atrial fibrillation mebyma Not available 09/2024 15:37:50 Mother Hypertensive disorder mebyma Not available 2024 15:36:41 Mother Malignant tumor of breast mebyma Not available 2024 15:37:05 Mother Atrial fibrillation mebyma Not available 09/2024 15:37:50 Paternal Grandmother Atrial fibrillation mebyma Not available 09/2024 15:37:50 Medical History Condition Response Coronary Artery Disease N Atrial Fibrillation N High Blood Pressure N Kidney or Bladder Problems N Thyroid Problems Y GI Problems N Depression Y COPD N Blood Clots N Have you had a mammogram in the last yea r? Y Skin Problems N Anemia N Heart Attack (NH) N Anxiety Disorder Y Diabetes N Muscle, Joint, or Bone Problems N Seizures/Epilepsy N Have you had a colonoscopy in the last 1 0 years? Y Acid Reflux (GERD) N Cancer N Stroke N Asthma N Allergies Y High Cholesterol N Hepatitis N Liver Disease N Headaches N Osteoporosis N Heart Failure N Gynecological History Statement/Question Response If Post Menopausal, Age at Menopause 51 Obstetrics History GPAL:G 0 P 0 0 0 0 Past Encounters Encounter ID Performer Location Encounter Start Date Encounter Closed Date Diagnosis/Indication Diagnosis SNOMED-CT Code Diagnosis ICD10 Code Diagnosis IMO Codes Diagnosis Note [id number] Colleen Londono MD [facility] [address] [address] 01/20/2025 15:13:43 01/20/2025 16:47:02 Obese class II 2951396956 94366 E66.812 E66.3 9983473984 BMI 37 Palpitations 62793153 R0 0.2 44561 Hypothyroidism 84639466 E03.9 36342562 Anxiety 65248985 F41.9 16487 Depressive disorder 3548 9007 F32.A 42377074 Obstructiv e sleep apnea syndrome 31029910 G47.33 535724 Diabetes m ellitus screening 399699861 Z13.1 828218 Health Concerns Section Related Observation LastModified by Organization Detai ls LastModified Time None Recorded Concern Status LastModified by Organization Details LastModified Time None Recorded Advance Directives Directive Y: Payers Insurance Date Sequence Insurance Name Policy Number Policy Avilez Covered Member ID Avilez Member ID Guarantor Name 02/18/2025 1 [facility] [id number] Jessica Perera [id number] Jessica Perera Notes Date Note Type Note Provider Name and Address Organization Details Recorded Time 01/20/2025 text/html 59-year-old history of palpitations for which she sees Cardiology Dr. So he took history of anxiety depression underactive thyroid sleep apnea but states that her machine is not working properly also history of gastric bypass who comes in to establish care medications aspirin 81 mg daily bupropion XL 300 mg daily escitalopram 20 mg daily levothyroxine 75 mcg daily magnesium oxide 400 b.i.d. metoprolol succinate ER 25 mg daily allergies penicillin hives surgeries gastric bypass appendectomy strabismus family history mother hypertension COPD atrial fibrillation dad CAD mi AFib sister Gale's thyroiditis. Social history denies smoking does drink [email or web address] works for [employer] Colleen Londono MD Attn: Accounting,[address] [facility], [place], [address], [facility] 02/17/2025 14:27:50 OBGyn Episode No OBEpisode recorded.
[2025-03-15 03:10] LABS: Hematocrit 34.9 % (37.0-47.0); Hemoglobin 11.2 g/dL (12.0-15.0); Immature Granulocyte Percent A 0.3 % (0-0.5); Lymphocytes Absolute Auto 2.48 K/mm3 (0.9-3.2); Mean Corpuscular HGB Conc 32.1 g/dl (32-36); Mean Corpuscular Hemoglobin 31.3 pg (26-34); Mean Corpuscular Volume 97.5 fl (80-100); Nucleated Red Blood Cells Absolute Auto 0.000 K/mm3 (0.0-0.012); Nucleated Red Blood Cells Perc 0.0 % (0.0-0.2); Platelet Count Result 286 k/mm3 (150-375); Red Blood Count 3.58 M/mm3 (4.2-5.4); White Blood Count 7.6 K/mm3 (4.5-10.0)
[2025-03-15 03:20] LABS: INR 1.0; Prothrombin Time 12.9 Seconds (11.1-14.7)
[2025-03-15 03:21] LABS: Alanine Aminotransferase 24 U/L (6-35); Albumin Level 4.1 g/dL (3.5-5.1); Alkaline Phosphatase 124 U/L (38-126); Anion Gap 6 mmol/L (4-12); Aspartate Amino Transferase 36 U/L (14-36); Bilirubin,Total 0.6 mg/dL (0.2-1.3); Blood Urea Nitrogen 15 mg/dL (7-17); Calcium 8.7 mg/dL (8.4-10.2); Carbon Dioxide 26 mmol/L (22-30); Chloride 106 mmol/L (98-107); Estimated CRCL calculation 72 ml/min; Estimated Glomerular Filt Rate > 60; Glucose 92 mg/dL (65-110); Lipase 205 U/L (23-300); Partial Thromboplastin Time 25.1 Seconds (22.3-36.8); Potassium 4.3 mmol/L (3.4-5.0); Sodium 138 mmol/L (137-145); Total Protein 6.9 g/dL (6.3-8.2)
[2025-03-15 03:34] LABS: Troponin I < 0.012 ng/mL (0.000-0.034)
--- NOTE | 2025-03-15 04:21 | ED.CHESTPAIN ---
HPI - Chest Pain General Chief Complaint: Chest Pain Stated Complaint: chest pain Time Seen by Provider: 03/15/25 02:49 History of Present Illness HPI narrative: Patient is a 59-year-old female who presents emergency department this evening complaining of left-sided chest pain which started approximately 5 hours prior to arrival. Patient states this happened around 9:00 p.m. this evening while she was sitting and states that she was not doing any physical exertion. Denies any history of coronary artery disease but states that she does have a history of sinus tachycardia and is on metoprolol for this. States that she recently started smoking again otherwise denies any additional symptoms or concerns. Related Data Home Medications ?Medication ?Instructions ?Recorded ?Confirmed ?Last Taken ?Type ergocalciferol (vitamin D2) 1,250 1,250 mcg WEEKLY 04/16/22 04/16/22 Unknown History mcg (50,000 unit) capsule escitalopram oxalate 20 mg tablet 20 mg DAILY 04/16/22 04/16/22 Unknown History levothyroxine 75 mcg tablet 75 mcg DAILY 04/16/22 04/16/22 Unknown History Allergies Allergy/AdvReac Type Severity Reaction Status Date / Time Penicillins Allergy Unknown Hives Verified 04/16/22 12:15 NSAIDS (Non-Steroidal Allergy Other Verified 04/16/22 12:15 Anti-Inflamma Review of Systems Review of Systems: All systems are reviewed and are negative unless stated otherwise in the HPI. COUNT INCLUDES THE [facility] Past Medical History Medical History Hypothyroid Depression Anxiety Surgical History Surgical History Gastric bypass status for obesity Gastric bypass status for obesity Family History Family History Father Patient's father is in good health Sibling Patient's sister is in good health Patient's brother is in good health Social History Social History Smoking status: Never smoker Alcohol intake: current Exam Narrative: General: Alert, awake, afebrile, in no acute distress. HEENT: PERRL, no rhinorrhea, no post nasal drip, oropharynx clear. Neck: Trachea midline, no JVD, no lymphadenopathy. Cardiovascular: Regular rate and rhythm, no murmurs, rubs or gallops, no peripheral edema. Respiratory: Clear to auscultation bilaterally, no tachypnea, no wheezing, no rhonchi, no rubs, no respiratory distress. Abdomen: Soft, nontender, nondistended, no rebound, no guarding, no peritoneal signs. Musculoskeletal: No joint swelling or deformity, normal muscle tone. Skin: No rashes or petechia, no signs of infection. Psychiatric: Alert and oriented, normal behavior and judgment for situation. Neurological: Alert and oriented to person, place, and time. Follows all commands. No focal deficits, speech is clear and fluent. Course Vital Signs Vital signs: Vital Signs Temperature 98.5 F 03/15/25 02:51 Pulse Rate 67 03/15/25 02:51 Respiratory Rate 14 03/15/25 02:51 Blood Pressure 142/74 H 03/15/25 02:51 Pulse Oximetry 99 03/15/25 02:51 Temperature 98.5 F 03/15/25 02:51 Pulse Rate 60 03/15/25 03:19 Respiratory Rate 11 L 03/15/25 03:01 Blood Pressure 120/69 03/15/25 03:01 Pulse Oximetry 99 03/15/25 03:19 Oxygen Delivery Room Air 03/15/25 02:57 MDM - Chest Pain MDM Narrative Medical decision making narrative: The patient was evaluated by myself in the emergency department. History is obtained from patient who is an independent historian and physical exam was performed. External medical records were reviewed at this time. IV was established and pertinent tests were ordered. Patient was administered mg of IV morphine and 4 mg IV Zofran. EKG was obtained which revealed sinus rhythm rate of 62 beats per minute otherwise no evidence of acute ischemia. EKG was independently interpreted by me and is currently pending official cardiology read. Laboratory results obtained revealing no acute process. Initial troponin negative. 3 hour troponin also negative. Imaging studies obtained included CXR which was independently interpreted by me revealing no acute process, which is pending final radiology interpretation. Differential diagnosis considerations include acute coronary syndrome, acute stress reaction, anxiety, infectious process such as pneumonia. Comorbidities impacting this visit include active tobacco use. I have evaluated and discussed social determinants of health with the patient that could potentially impact subsequent diagnosis and treatment plans. On repeat assessment of the patient, reevaluation revealed that the patient is doing well and is in no acute distress. Patient symptoms have improved since she arrived to our emergency department. Repeat vital signs were all reviewed and noted to be stable. Differential diagnosis and treatment plan were discussed with the patient at bedside. Patient agrees with discussion and after shared medical decision making agrees with discharge. All questions were answered to the patient's satisfaction. 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 Patient was provided with strict return precautions and instructed to return to the emergency department if any new or worsening symptoms develop. The patient was discharged in stable condition. Lab Data 03/15/25 03:02 03/15/25 03:02 Labs: Lab Results 03/15/25 03/15/25 Range/Units 03:02 05:44 WBC 7.6 (4.5-10.0) K/mm3 RBC 3.58 L (4.2-5.4) M/mm3 Hgb 11.2 L (12.0-15.0) g/dL Hct 34.9 L (37.0-47.0) % MCV 97.5 (80-100) fl MCH 31.3 (26-34) pg MCHC 32.1 (32-36) g/dl RDW 13.1 (11.5-14.5) % Plt Count 286 (150-375) k/mm3 MPV 11.0 H (7.4-10.4) fl Immature Gran % (Auto) 0.3 (0-0.5) % Neut % (Auto) 56.2 (45.5-73.1) % Lymph % (Auto) 32.6 (18.3-44.2) % Giles % (Auto) 6.4 (2.6-8.5) % Eos % (Auto) 3.7 (0-4.4) % Baso % (Auto) 0.8 (0.2-1.2) % Lymph # (Auto) 2.48 (0.9-3.2) K/mm3 Giles # (Auto) 0.5 (0.1-0.6) K/mm3 Eos # (Auto) 0.3 (0-0.3) K/mm3 Baso # (Auto) 0.1 (0.0-0.1) K/mm3 Abs Immat Gran (auto) 0.02 (0.00-0.031) K/mm3 Absolute Neuts (auto) 4.3 (1.3-6.7) K/mm3 Absolute Nucleated RBC 0.000 (0.0-0.012) K/mm3 Nucleated RBC % 0.0 (0.0-0.2) % PT 12.9 (11.1-14.7) Seconds INR 1.0 APTT 25.1 (22.3-36.8) Seconds Sodium 138 (137-145) mmol/L Potassium 4.3 (3.4-5.0) mmol/L Chloride 106 (98-107) mmol/L Carbon Dioxide 26 (22-30) mmol/L Anion Gap 6 (4-12) mmol/L BUN 15 (7-17) mg/dL Creatinine 0.93 (0.7-1.0) mg/dL Estim Creat Clear Calc 72 ml/min Estimated GFR > 60 (59 - ) Glucose 92 (65-110) mg/dL Calcium 8.7 (8.4-10.2) mg/dL Total Bilirubin 0.6 (0.2-1.3) mg/dL AST 36 (14-36) U/L ALT 24 (6-35) U/L Alkaline Phosphatase 124 (38-126) U/L Troponin I < 0.012 < 0.012 (0.000-0.034) ng/mL Total Protein 6.9 (6.3-8.2) g/dL Albumin 4.1 (3.5-5.1) g/dL Lipase 205 (23-300) U/L Discharge Plan Discharge Clinical Impression: Chest pain Patient Disposition: Home Condition: Improved Instructions: Antibiotic Form, Chest Pain (ED) Additional Instructions: Please follow-up with the family doctor in the next 3-5 days. Return to the ED if any new or worsening symptoms develop. You also provided with a Cardiology referral instructed to call on Monday to set up a follow-up appointment. Also instructed to stop smoking cigarettes. Patient Language: Cypriot Prescriptions: No Action levothyroxine 75 mcg tablet 75 mcg DAILY ergocalciferol (vitamin D2) 1,250 mcg (50,000 unit) capsule 1,250 mcg WEEKLY escitalopram oxalate 20 mg tablet 20 mg DAILY benzonatate 200 mg capsule 200 mg PO TID PRN (Reason: cough) Qty: 20 0RF doxycycline hyclate 100 mg tablet 100 mg PO BID 7 Days Qty: 14 0RF Follow-up/Referrals: Analisa,Eloisa Cohn MD [Primary Care Provider] Mayra Ponce MD [Physician, Cardiology] - 3 Days Time of Disposition: 06:27
[2025-03-15] MEDS: MORPHINE SULFATE (*CRX) 4 MG/ML INJ 2 MG IV PUSH (04:27)
[2025-03-15] MEDS: FAMOTIDINE 20 MG/2 ML VIAL IV PUSH (04:27)
[2025-03-15] MEDS: ONDANSETRON INJ 4 MG/2 ML VIAL IV PUSH (04:27)
--- NOTE | 2025-03-15 05:48 | ECG_ITS ---
Test Date: 2025-03-15 05:45:53 Measurements Intervals [place] Rate: 57 P: 58 ME: 179 QRS: 30 QRSD: 88 T: 40 QT: 415 QTc: 405 Interpretive Statements SINUS BRADYCARDIA Electronically Signed On 03-16-2025 20:37:41 CDT by Jamari Prieto D.O
[2025-03-15 06:24] LABS: Troponin I < 0.012 ng/mL (0.000-0.034)
== END 2025-03-15 06:38 | disposition home or self-care (01) ==
PROVIDERS: Emergency Provider Emergency Medicine; PCP Family Medicine
DX: R07.9 Chest pain, unspecified (principal); E03.9 Hypothyroidism, unspecified; F32.A Depression, unspecified; F41.9 Anxiety disorder, unspecified; Z98.84 Bariatric surgery status
CPT/HCPCS: 36415; 71046; 80053; 83690; 84484; 85025; 85610; 85730; 93005; 96374; 96375; 99284; J2270; J2405